=== PATIENT | female | born 1965 | race Caucasian/White ===

== ENCOUNTER 2022-11-19 01:48 | Outpatient (CLI) | payer MEDICAID ==
[2022-11-19 17:38] LABS: BASOPHILS % (AUTO) 1.3 %; EOSINOPHILS # (AUTO) 0.1 10^3/uL (0.0-0.7); EOSINOPHILS % (AUTO) 3.2 %; HCT - HEMATOCRIT 40.8 % (37.0-47.0); HGB - HEMOGLOBIN 13.6 g/dL (12.0-16.0); LYMPHOCYTES # (AUTO) 1.6 10^3/uL (1.5-3.5); LYMPHOCYTES % (AUTO) 49.2 %; MEAN CORPUSCULAR HEMOGLOBIN 33.5 pg (27.0-31.0); MEAN CORPUSCULAR HGB CONC 33.3 g/dL (32.0-36.0); MEAN CORPUSCULAR VOLUME 100.5 fL (81.0-99.0); MEAN PLATELET VOLUME 10.3 fL (7.9-10.8); MONOCYTES # (AUTO) 0.5 10^3/uL (0.0-1.0); MONOCYTES % (AUTO) 15.9 %; NEUTROPHILS # (AUTO) 0.9 10^3/uL (1.5-6.6); NEUTROPHILS % (AUTO) 29.8 %; PLT - PLATELET COUNT 115 10^3/uL (130-450); RED BLOOD COUNT 4.06 10^6/uL (4.20-5.40); RED CELL DISTRIBUTION WIDTH 14.8 % (12.0-15.0); WHITE BLOOD COUNT 3.2 x10^3/uL (4.8-10.8)
[2022-11-19 18:00] LABS: ALBUMIN 4.5 g/dL (3.2-5.5); ALBUMIN/GLOBULIN RATIO 1.2 (1.0-2.2); BILIRUBIN,TOTAL 0.7 mg/dL (0.2-1.0); CALCIUM 9.6 mg/dL (8.5-10.3); CREATININE 0.6 mg/dL (0.4-1.0); POTASSIUM 3.2 mmol/L (3.5-5.0); TOTAL PROTEIN 8.2 g/dL (6.7-8.2)
== END 2022-11-19 23:59 | disposition home or self-care (01) ==
LOC: LAB.N 01:48
PROVIDERS: ATTEND Physician Assistant
DX: R53.83 Other fatigue (principal)
CPT/HCPCS: 36415; 80050

== ENCOUNTER 2023-07-11 10:52 | Inpatient (IN) | payer MEDICAID ==
[2023-07-11] MEDS ORDERED: SODIUM CHLORIDE 0.9% 1,000 ML IV STA (11:26)
[2023-07-11] MEDS ORDERED: ONDANSETRON 4 MG/2 ML VIAL IVP STA (11:26)
--- NOTE | 2023-07-11 11:52 | XRAY Report ---
PROCEDURE: Chest 1 View X-Ray INDICATIONS: SOA TECHNIQUE: One view of the chest was acquired. COMPARISON: Chest x-ray, 06/04/2022. FINDINGS: Surgical changes and devices: None. Lungs and pleura: No pleural effusions or pneumothorax. Lungs are clear. Mediastinum: Mediastinal contours appear normal. Heart size is normal. Bones and chest wall: No suspicious bony lesions. Overlying soft tissues appear unremarkable. IMPRESSION: No acute cardiopulmonary process. Reviewed by: Napoleon Hough MD on 07/11/2023 11:51 AM PDT Approved by: Napoleon Hough MD on 07/11/2023 11:51 AM PDT Station ID: [id number]
[2023-07-11 12:28] LABS: BASOPHILS % (AUTO) 0.3 %; HCT - HEMATOCRIT 42.8 % (37.0-47.0); HGB - HEMOGLOBIN 13.6 g/dL (12.0-16.0); LYMPHOCYTES # (AUTO) 0.1 10^3/uL (1.5-3.5); LYMPHOCYTES % (AUTO) 2.4 %; MEAN CORPUSCULAR HEMOGLOBIN 33.3 pg (27.0-31.0); MEAN CORPUSCULAR HGB CONC 31.8 g/dL (32.0-36.0); MEAN CORPUSCULAR VOLUME 104.6 fL (81.0-99.0); MEAN PLATELET VOLUME 9.5 fL (7.9-10.8); MONOCYTES # (AUTO) 0.7 10^3/uL (0.0-1.0); MONOCYTES % (AUTO) 12.7 %; NEUTROPHILS # (AUTO) 4.8 10^3/uL (1.5-6.6); NEUTROPHILS % (AUTO) 83.6 %; PLT - PLATELET COUNT 79 10^3/uL (130-450); RED BLOOD COUNT 4.09 10^6/uL (4.20-5.40); RED CELL DISTRIBUTION WIDTH 14.8 % (12.0-15.0); WHITE BLOOD COUNT 5.7 x10^3/uL (4.8-10.8)
[2023-07-11 12:44] LABS: ALBUMIN 4.7 g/dL (3.2-5.5); ALBUMIN/GLOBULIN RATIO 1.6 (1.0-2.2); BILIRUBIN,TOTAL 1.7 mg/dL (0.2-1.0); CALCIUM 7.9 mg/dL (8.5-10.3); ETOH - ETHANOL 115.9 mg/dL; POTASSIUM 4.1 mmol/L (3.5-5.0); TOTAL PROTEIN 7.7 g/dL (6.7-8.2)
--- NOTE | 2023-07-11 12:45 | ED Physician Documentation ---
History of Present Illness - Stated complaint Stated Complaint: N/V,SOA,FATIGUE - Chief complaint Chief Complaint: Abd Pain - History obtained from History obtained from: Patient - Additonal information Additional information: Patient is a 57-year-old female presenting for evaluation of nausea and vomiting for the past 1 week. Patient reports a history of alcohol abuse and drinks a third of a bottle of vodka Daily. She has been unable to tolerate any p.o. intake for the past 1 week and states her last EtOH use was 2 days ago. She denies alcohol withdrawal seizures but states that she has had DTs in the past. Does not currently see a PCP. States that her emesis is primarily liquids denies any blood. No diarrhea. She says she feels short of air. No chest pain. No fevers. No dysuria. Review of Systems Constitutional: denies: Fever Cardiac: denies: Chest pain / pressure Respiratory: reports: Dyspnea GI: reports: Nausea, Vomiting. denies: Bloody / black stool : denies: Dysuria Neurologic: denies: Headache PD PAST MEDICAL HISTORY - Past Medical History Past Medical History: Yes HEENT: Chronic hearing loss Psych: Other Other Past Medical History: Deaf R ear, ETOH abuse - Past Surgical History Past Surgical History: No - Present Medications Home Medications: Ambulatory Orders Medication Instructions Recorded Confirmed No Known Home Medications 07/11/23 07/11/23 - Allergies Allergies/Adverse Reactions: Allergies Allergy/AdvReac Type Severity Reaction Status Date / Time No Known Drug Allergies Allergy Verified 06/04/22 01:35 - Social History Does the pt smoke?: Yes Smoking Status: Current every day smoker Does the pt drink ETOH?: Yes ETOH Use: Liquor Does the pt have substance abuse?: No PD ED PE NORMAL - General General: Alert and oriented X 3, No acute distress, Well developed/nourished - HEENT HEENT: Atraumatic - Neck Neck: Supple, no meningeal sign - Cardiac Cardiac: No murmur, Other (Tachycardic, regular) - Respiratory Respiratory: Clear bilaterally, Other (Mild tachypnea) - Abdomen Abdomen: Normal bowel sounds, Soft, Non tender, Non distended ( rhythm) - Derm Derm: Warm and dry - Extremities Extremities: No edema - Neuro Neuro: Normal speech Results - Vitals Vitals: Vital Signs - 24 hr 07/11/23 07/11/23 10:57 13:02 Temperature 36.4 C L Heart Rate 132 H 118 H Respiratory 20 16 Rate Blood Pressure 118/96 H 140/79 H O2 Saturation 97 97 Oxygen O2 Source Room air - EKG (time done) 1144 EKG releavant findings:: EKG personally interpreted by author of this note. Relevant findings are: Rate 115, sinus tachycardia, no STEMI, T wave inversions in lead V3 - Labs Labs: Laboratory Tests 07/11/23 07/11/23 07/11/23 12:23 12:23 12:23 WBC 5.7 RBC 4.09 L Hgb 13.6 Hct 42.8 MCV 104.6 H MCH 33.3 H MCHC 31.8 L RDW 14.8 Plt Count 79 L MPV 9.5 Neut # (Auto) 4.8 Lymph # (Auto) 0.1 L [place] # (Auto) 0.7 Eos # (Auto) 0.0 Baso # (Auto) 0.0 Absolute Nucleated RBC 0.00 Nucleated RBC % 0.0 Bld Gas Analysis Time Sample Site ABG pH ABG pCO2 ABG pO2 ABG HCO3 ABG Total CO2 ABG O2 Saturation ABG Base Excess Tae Test Room Air Sodium 139 Potassium 4.1 Chloride 97 L Carbon Dioxide 12 L* Anion Gap 30.0 H BUN 23 H Creatinine 1.0 Estimated GFR (MDRD) 57 L Glucose 147 H Calcium 7.9 L Total Bilirubin 1.7 H AST 131 H ALT 60 Alkaline Phosphatase 57 Total Protein 7.7 Albumin 4.7 Globulin 3.0 Albumin/Globulin Ratio 1.6 Lipase 144 H Ethyl Alcohol 115.9 Serum Ketones SMALL H 07/11/23 13:25 WBC RBC Hgb Hct MCV MCH MCHC RDW Plt Count MPV Neut # (Auto) Lymph # (Auto) [place] # (Auto) Eos # (Auto) Baso # (Auto) Absolute Nucleated RBC Nucleated RBC % Bld Gas Analysis Time 1325 Sample Site RIGHT RADIAL ABG pH 7.18 L* ABG pCO2 30 L ABG pO2 82 ABG HCO3 10.9 L ABG Total CO2 11.8 L* ABG O2 Saturation 94 ABG Base Excess -16.1 L Tae Test POSITIVE Room Air YES Sodium Potassium Chloride Carbon Dioxide Anion Gap BUN Creatinine Estimated GFR (MDRD) Glucose Calcium Total Bilirubin AST ALT Alkaline Phosphatase Total Protein Albumin Globulin Albumin/Globulin Ratio Lipase Ethyl Alcohol Serum Ketones PD Medical Decision Making - ED course Complexity details: reviewed results, re-evaluated patient, d/w patient, d/w family ED course: 1342 - Discussed with admitting hospitalist will admit the patient for further management. Patient is a 57-year-old female presenting for evaluation of nausea and vomiting and feeling short of air. She has a long history of alcohol abuse and last drink 2 days ago. She is noted to be tachycardic. EKG demonstrates a sinus rhythm. She does report feeling short of air. Her lung sounds are clear. Chest x-ray is negative for pneumonia. I feel PE is less likely given other symptoms and Alternate diagnosis. Her labs were obtained including a CBC and chemistries with noted low CO level. I am concerned for acidosis and obtained an ABG and serum ketones. ABG demonstrates a pH of 7.18 and she has small serum ketones. Suspect her symptoms are related to alcoholic ketoacidosis. Her abdominal exam is benign. She has continued nausea and vomiting despite Zofran and IV fluids. Ethanol level is 115. Patient may be having early withdrawal symptoms as well. Discussed the case with admitting hospitalist will admit to ICU for further management. Departure - Departure Disposition: 66 [facility] DC/Xfer Clinical Impression: Alcoholic ketoacidosis, Alcohol abuse, Nausea & vomiting Condition: Fair Discharge Date/Time: 07/11/23 14:45
[2023-07-11 13:35] LABS: ABG BASE EXCESS -16.1 mmol/L (-2.0-3.0); ABG HCO3 10.9 mmol/L (22.0-26.0); ABG OXYGEN SATURATION 94 % (94-98); ABG PCO2 30 mmHg (34-45); ABG PO2 82 mmHg (80-100); ALLEN TEST POSITIVE
[2023-07-11 13:36] LABS: ABG PH 7.18 (7.35-7.45)
[2023-07-11 13:37] LABS: ABG TCO2 11.8 MMOL/L (21.0-29.0)
[2023-07-11] MEDS ORDERED: METOCLOPRAMIDE 10 MG/2 ML VIAL IVP STA (13:43)
[2023-07-11] MEDS ORDERED: PROCHLORPERAZINE 10 MG/2 ML VIAL IVP PRN (13:58)
[2023-07-11] MEDS ORDERED: ONDANSETRON 4 MG/2 ML VIAL IVP PRN (13:58)
[2023-07-11] MEDS ORDERED: HYDROmorphone 1 MG/ML CARPUJECT IVP PRN (14:20)
--- NOTE | 2023-07-11 14:20 | HISTORY & PHYSICAL EXAMINATION ---
Chief Complaint - Chief Complaint Chief Complaint: N/V fot 1 week History of Present Illness - Admitted From Admitted From:: ED - History Obtained From History obtained from: ED provider - History of Present Illness HPI Comment/Other: This is a 57-year-old female with a history of alcohol abuse drinks a large bottle of vodka every 2 days. There is a history of DTs but no alcohol withdrawal seizures. The patient presented to the ED complaining of nausea vomiting for 1 week. She can keep nothing down, not even liquids. She presented with a heart rate of 130 in sinus tachycardia, syst blood pressure 118. Labs showed a bicarb of 12 and ABG showed pH of 7.18, PCO2 30. The patient reported she has had no alcohol for 2 days however her serum alcohol level is 115. She complained of shortness of breath and was tachypneic but chest x-ray showed no abnormal findings. Lipase level is 144. No lactic acid level was done. No CT imaging was done because the CT scanner is currently broken. The ED provider spoke to me about this patient. The patient will be admitted to the Hospitalist service to the ICU in critical condition and started on treatment for alcoholic ketoacidosis and alcohol withdrawal. There is no POLST on record. She is unable to give accurate answers, therefore by default she will be a full code. History - Past Medical History HEENT: reports: Chronic hearing loss Psych: reports: Other Other Past Medical History: Deaf R ear, ETOH abuse - Family & Social History Social History Notes: Nothing is available, she is somnolent after receiving sedatives and cannot answer Meds/Allgy - Home Medications Home Medications: Ambulatory Orders Medication Instructions Recorded Confirmed No Known Home Medications 07/11/23 07/11/23 - Allergies Allergies/Adverse Reactions: Allergies Allergy/AdvReac Type Severity Reaction Status Date / Time No Known Drug Allergies Allergy Verified 06/04/22 01:35 Review of Systems - Gastrointestinal Gastrointestinal: reports: Nausea, Vomiting - All Other Systems All Other Systems: reports: Other (No other details are available currently because the patient is asleep after sedatives and cannot give other information) Exam - Vital Signs Reviewed Vital Signs: Yes Vital Signs: Vital Signs x48h Temp Pulse Resp BP Pulse Ox 07/11/23 13:02 118 H 16 140/79 H 97 07/11/23 10:57 36.4 C L 132 H 20 118/96 H 97 - Physical Exam General Appearance: positive: Lethargic (Asleep and does not respond to voice or light touch (got Ativan iv)) Eyes Bilateral: positive: Normal inspection, No lid inflammation ENT: positive: Dry mucous membranes Neck: positive: Nml inspection, No JVD Respiratory: positive: No respiratory distress, Breath sounds nml Cardiovascular: positive: Regular rate & rhythm, No murmur, Tachycardia Abdomen: positive: Non-tender, Nml bowel sounds, No distention Skin: positive: Warm, Dry Extremities: positive: Non-tender, No pedal edema Neurologic/Psychiatric: positive: Other (Somnolent) Conclusion/Plan - Problem List (1) Alcoholic ketoacidosis Conclusion/Plan: This is related to marked dehydration from longstanding vomiting in addition to alcohol abuse Plan: Admit the patient to the ICU on telemetry. Begin IV crystalloid fluids aggressively, Banana bag planned Start a bicarb IV drip Follow her serum ketones every 3 hours. (2) Alcohol withdrawal Conclusion/Plan: Despite having some alcohol and serum blood tests, she is scoring 24 on CIWA score at presentation Plan: Start CIWA protocol with high-dose ICU doses of Ativan prn Give a banana bag for IV hydration Librium cannot be started because she will be n.p.o. (3) Alcohol abuse Conclusion/Plan: As per Hx. The details of duration and true amounts of what she drinks are not known. Plan: I will order a banana bag for IV hydration Follow her CMP and CBC daily Begin empiric IV twice daily Protonix (4) Pancreatitis Conclusion/Plan: He has an elevated lipase level. We have no imaging to know the status of her pancreas since our CT scanner is broken Plan: Order n.p.o. except ice chips for bowel rest Give IV antiemetics and IV narcotics for pain control Give IV fluids as above Give empiric protonix iv BID Obtain pancreas imaging by either CT when it is available later today or by ultrasound (when she has pain control) - Lab Results Fish Bones: 07/11/23 12:23 07/11/23 12:23 - Diagnostic Imaging Results Diagnostic Imaging Results: positive: Final report reviewed - Other Other Results/Comments: Attestation: The patient is expected to be hospitalized for greater than 2 midnights and is expected to be discharged or transferred to another facility within 96 hours: Yes.
[2023-07-11] MEDS: DEXTROSE 5%-0.9% NACL 1,000 ML IV SCH (14:57)
[2023-07-11] MEDS: LORazepam 2 MG/ML VIAL IVP PRN ×6 (14:58→22:53)
[2023-07-11] MEDS ORDERED: SODIUM BICARBONATE 150 MEQ in DEXTROSE 5% 1,000 ML IV SCH (15:00)
[2023-07-11] MEDS: SODIUM BICARBONATE 150 MEQ in DEXTROSE 5% 1,000 ML IV SCH (15:06)
[2023-07-11] MEDS: SODIUM CHLORIDE FLUSH 0.9% 10 ML SYRINGE IVP SCH (16:39)
[2023-07-11 17:31] LABS: BILIRUBIN,URINE NEGATIVE (NEGATIVE); GLUCOSE, URINE (UA) NEGATIVE (NEGATIVE); KETONES,URINE (UA) >=80 mg/dL (NEGATIVE); LEUKOCYTE ESTERASE, URINE NEGATIVE (NEGATIVE); NITRITE,URINE NEGATIVE (NEGATIVE); OCCULT BLOOD,URINE TRACE-INTA (NEGATIVE); PH,URINE 5.5 PH (5.0-7.5); PROTEIN,URINE 30 mg/dL (NEGATIVE); UROBILINOGEN,URINE 0.2 (NORMAL) E.U./dL (NORMAL)
[2023-07-11 17:49] LABS: BACTERIA,URINE Rare /HPF (None Seen); CASTS, URINE 6-10 Hyaline Casts /LPF; CLARITY,URINE HAZY (CLEAR); EPITHELIAL CELLS,UR RARE Transitional /HPF (<= Few); RBC,URINE 0-5 /HPF (0-5); SQUAMOUS EPITHELIAL CELL,UR NONE SEEN (<= Few); WBC,URINE 0-3 /HPF (0-5)
[2023-07-11] MEDS: PANTOPRAZOLE 40 MG VIAL IVP SCH (20:43)
[2023-07-11 20:59] LABS: VBG PH 7.44 (7.31-7.41)
[2023-07-11] MEDS ORDERED: CALCIUM GLUC 1,000MG/50ML-NACL 1,000 MG/50 ML BAG IV ONE (21:26)
[2023-07-11] MEDS: MAGNESIUM SULFATE 2 GRAM 2 GM/50 ML BAG IV SCH ×2 (22:05→23:11)
[2023-07-11] MEDS: POTASSIUM PHOSPHATE 15 MMOL in SODIUM CHLORIDE 0.9% 250 ML IV SCH (22:32)
[2023-07-12] MEDS ORDERED: SODIUM BICARBONATE 8.4% 50 MEQ/50 ML VIAL ONE (00:19)
[2023-07-12] MEDS ORDERED: DEXTROSE 5% 1,000 ML IV ONE (00:19)
[2023-07-12] MEDS ORDERED: INSULIN LISPRO 300 UNIT/3 ML PEN SUBQ SCH ×2 (00:50→00:51)
[2023-07-12] MEDS: INSULIN REGULAR HUMAN 300 UNIT/3 ML VIAL SUBQ SCH ×4 (01:45→18:18)
[2023-07-12] MEDS: SODIUM CHLORIDE FLUSH 0.9% 10 ML SYRINGE IVP SCH ×5 (01:53→21:23)
[2023-07-12 02:20] LABS: CALCIUM, IONIZED 1.06 mmol/L (1.15-1.33); VBG PH 7.514 (7.31-7.41)
[2023-07-12] MEDS: SODIUM BICARBONATE 150 MEQ in DEXTROSE 5% 1,000 ML IV SCH (02:24)
[2023-07-12] MEDS: POTASSIUM PHOSPHATE 15 MMOL in SODIUM CHLORIDE 0.9% 250 ML IV SCH ×3 (02:28→14:17)
[2023-07-12] MEDS ORDERED: CALCIUM GLUC 1,000MG/50ML-NACL 1,000 MG/50 ML BAG IV ONE ×4 (02:31→20:55)
[2023-07-12] MEDS: DEXTROSE 5%-0.9% NACL 1,000 ML IV SCH ×2 (02:45→10:44)
[2023-07-12] MEDS: LORazepam 2 MG/ML VIAL IVP PRN ×7 (04:13→22:52)
[2023-07-12 05:34] LABS: BASOPHILS % (AUTO) 0.3 %; EOSINOPHILS % (AUTO) 0.9 %; HCT - HEMATOCRIT 32.7 % (37.0-47.0); HGB - HEMOGLOBIN 11.4 g/dL (12.0-16.0); LYMPHOCYTES # (AUTO) 0.4 10^3/uL (1.5-3.5); LYMPHOCYTES % (AUTO) 11.4 %; MEAN CORPUSCULAR HGB CONC 34.9 g/dL (32.0-36.0); MEAN CORPUSCULAR VOLUME 97.6 fL (81.0-99.0); MEAN PLATELET VOLUME 10.3 fL (7.9-10.8); MONOCYTES # (AUTO) 0.6 10^3/uL (0.0-1.0); MONOCYTES % (AUTO) 18.1 %; NEUTROPHILS # (AUTO) 2.4 10^3/uL (1.5-6.6); NEUTROPHILS % (AUTO) 68.7 %; PLT - PLATELET COUNT 58 10^3/uL (130-450); RED BLOOD COUNT 3.35 10^6/uL (4.20-5.40); RED CELL DISTRIBUTION WIDTH 14.2 % (12.0-15.0); WHITE BLOOD COUNT 3.4 x10^3/uL (4.8-10.8)
[2023-07-12 05:43] LABS: CALCIUM, IONIZED 1.04 mmol/L (1.15-1.33); VBG PH 7.556 (7.31-7.41)
[2023-07-12 05:53] LABS: ALBUMIN 3.8 g/dL (3.2-5.5); ALBUMIN/GLOBULIN RATIO 2.1 (1.0-2.2); ALKALINE PHOSPHATASE 46 IU/L (42-121); ALT ALANINE AMINOTRANSFERASE 34 IU/L (10-60); AST ASPARTATE AMINOTRANSFERASE 73 IU/L (10-42); BILIRUBIN,TOTAL 1.1 mg/dL (0.2-1.0); BUN - BLOOD UREA NITROGEN 11 mg/dL (6-20); CALCIUM 8.8 mg/dL (8.5-10.3); CARBON DIOXIDE - CO2 32 mmol/L (21-32); CHLORIDE 99 mmol/L (101-111); CREATININE 0.5 mg/dL (0.6-1.3); GFR - MDRD 126 (>89); GLUCOSE 247 mg/dL (74-104); LIPASE 349 U/L (11-82); MAGNESIUM 2.4 mg/dL (1.7-2.3); PHOSPHORUS 1.2 mg/dL (2.5-5.0); POTASSIUM 3.1 mmol/L (3.5-4.5); SODIUM 139 mmol/L (135-145); TOTAL PROTEIN 5.6 g/dL (6.4-8.9)
[2023-07-12 06:05] LABS: KETONES, SERUM (ACETEST) SMALL (NEGATIVE)
[2023-07-12] MEDS: MULTIVITAMIN 10 ML, THIAMINE INJ 100 MG, FOLIC ACID INJ 1 MG in SODIUM CHLORIDE 0.9% 1,... IV SCH (09:17)
[2023-07-12] MEDS: PANTOPRAZOLE 40 MG VIAL IVP SCH ×2 (09:19→20:23)
[2023-07-12 09:51] LABS: CALCIUM, IONIZED 1.11 mmol/L (1.15-1.33); VBG PH 7.538 (7.31-7.41)
[2023-07-12 10:10] LABS: PHOSPHORUS < 1.0 mg/dL (2.5-5.0)
--- NOTE | 2023-07-12 10:45 | PHARMACY PROGRESS NOTE ---
- Best Possible Medication History Admit Date and Time: 07/11/23 7556 Processed by: Nursing As the person ultimately responsible for medication therapy, providers are able to order a medication from an existing home medication list in [facility] via the "Reconcile Routine" prior to Confirmation of that medication by program support clerk. Such practice is discouraged except when the physician, in their clinical judgment, deems that a medical need exists for a medication without regard to previous use.
[2023-07-12 10:51] LABS: ESTIMATED AVERAGE GLUCOSE 108 mg/dL (70-100); HEMOGLOBIN A1c% 5.4 % (4.27-6.07)
[2023-07-12] MEDS ORDERED: POTASSIUM CHLOR 10 MEQ/100 ML 10 MEQ/100 ML BAG IV SCH (11:00)
[2023-07-12] MEDS: POTASSIUM CHLOR 10 MEQ/100 ML 10 MEQ/100 ML BAG IV SCH ×4 (14:16→17:22)
--- NOTE | 2023-07-12 16:56 | PROVIDER PROGRESS NOTE ---
Subjective - Subjective Pt reports feeling: No change (She is minimally awake, slurring her speech when answering unintelligibly. She is reaching for things in front of her) Objective - Vital Signs/Intake & Output Reviewed Vital Signs: Yes Vital Signs: Vital Signs Temp Pulse Resp BP Pulse Ox O2 Flow Rate 07/12/23 16:05 36.7 C 99 22 138/85 H 95 07/12/23 15:00 98 23 141/96 H 98 2 07/12/23 13:00 92 24 133/88 H 95 2 Intake & Output: Intake & Output 07/09/23 07/10/23 07/11/23 07/12/23 23:59 23:59 23:59 23:59 Intake Total 1100 4367.446 Output Total 1025 1465 Balance 75 2902.446 - Objective General Appearance: positive: No acute distress, Other (Somnolent, slurred speech, possibly is hallucinating (reaching for things with her arms, in front of her) Eyes Bilateral: positive: No lid inflammation ENT: positive: Dry mucous membranes Neck: positive: Nml inspection Respiratory: positive: No respiratory distress, Breath sounds nml Cardiovascular: positive: Regular rate & rhythm, No murmur Abdomen: positive: Non-tender, No distention, Other (Diminished bowel sounds, soft abd) Skin: positive: Warm, Dry Extremities: positive: No pedal edema Neurologic/Psychiatric: positive: Other (Lethargic, slurred speech and unintelligible, reaching for things in front of her (possibly hallucinating)) - Lab Results Fish Bones: 07/12/23 05:08 07/12/23 09:17 Other Labs: Lab Results x24hrs 07/12/23 07/12/23 07/12/23 Range/Units 15:30 12:13 09:17 WBC (4.8-10.8) x10^3/uL RBC (4.20-5.40) 10^6/uL Hgb (12.0-16.0) g/dL Hct (37.0-47.0) % MCV (81.0-99.0) fL MCH (27.0-31.0) pg MCHC (32.0-36.0) g/dL RDW (12.0-15.0) % Plt Count (130-450) 10^3/uL MPV (7.9-10.8) fL Neut # (Auto) (1.5-6.6) 10^3/uL Lymph # (Auto) (1.5-3.5) 10^3/uL [place] # (Auto) (0.0-1.0) 10^3/uL Eos # (Auto) (0.0-0.7) 10^3/uL Baso # (Auto) (0.0-0.1) 10^3/uL Absolute Nucleated RBC x10^3/uL Nucleated RBC % /100WBC VBG pH 7.538 H (7.31-7.41) Ionized Calcium 1.11 L (1.15-1.33) mmol/L Sodium (135-145) mmol/L Potassium (3.5-5.0) mmol/L Chloride (101-111) mmol/L Carbon Dioxide (21-32) mmol/L Anion Gap (6-13) BUN (6-20) mg/dL Creatinine (0.6-1.3) mg/dL Estimated GFR (MDRD) (>89) Glucose (74-104) mg/dL POC Whole Bld Glucose 162 H (70 - 100) mg/dL Estimat Average Glucose (70-100) mg/dL Hemoglobin A1c % (4.27-6.07) % Calcium (8.5-10.3) mg/dL Phosphorus (2.5-5.0) mg/dL Magnesium (1.7-2.3) mg/dL Total Bilirubin (0.2-1.0) mg/dL AST (10-42) IU/L ALT (10-60) IU/L Alkaline Phosphatase (42-121) IU/L Total Protein (6.4-8.9) g/dL Albumin (3.2-5.5) g/dL Globulin (2.1-4.2) g/dL Albumin/Globulin Ratio (1.0-2.2) Lipase (11-82) U/L Urine Color Urine Clarity (CLEAR) Urine pH (5.0-7.5) PH Ur Specific [place] (1.002-1.030) Urine Protein (NEGATIVE) mg/dL Urine Glucose (UA) (NEGATIVE) mg/dL Urine Ketones (NEGATIVE) mg/dL Urine Occult Blood (NEGATIVE) Urine Nitrite (NEGATIVE) Urine Bilirubin (NEGATIVE) Urine Urobilinogen (NORMAL) E.U./dL Ur Leukocyte Esterase (NEGATIVE) Urine RBC (0-5) /HPF Urine WBC (0-5) /HPF Ur Epithelial Cells (<= Few) /HPF Ur Squamous Epith Cells (<= Few) Urine Bacteria (None Seen) /HPF Urine Casts /LPF Urine Culture Comments Nasal Screen MRSA (PCR) (NEGATIVE) Serum Ketones SMALL H (NEGATIVE) 07/12/23 07/12/23 07/12/23 Range/Units 09:17 05:26 05:08 WBC (4.8-10.8) x10^3/uL RBC (4.20-5.40) 10^6/uL Hgb (12.0-16.0) g/dL Hct (37.0-47.0) % MCV (81.0-99.0) fL MCH (27.0-31.0) pg MCHC (32.0-36.0) g/dL RDW (12.0-15.0) % Plt Count (130-450) 10^3/uL MPV (7.9-10.8) fL Neut # (Auto) (1.5-6.6) 10^3/uL Lymph # (Auto) (1.5-3.5) 10^3/uL [place] # (Auto) (0.0-1.0) 10^3/uL Eos # (Auto) (0.0-0.7) 10^3/uL Baso # (Auto) (0.0-0.1) 10^3/uL Absolute Nucleated RBC x10^3/uL Nucleated RBC % /100WBC VBG pH (7.31-7.41) Ionized Calcium (1.15-1.33) mmol/L Sodium (135-145) mmol/L Potassium 3.0 L (3.5-5.0) mmol/L Chloride (101-111) mmol/L Carbon Dioxide (21-32) mmol/L Anion Gap (6-13) BUN (6-20) mg/dL Creatinine (0.6-1.3) mg/dL Estimated GFR (MDRD) (>89) Glucose (74-104) mg/dL POC Whole Bld Glucose 228 H (70 - 100) mg/dL Estimat Average Glucose 108 H (70-100) mg/dL Hemoglobin A1c % 5.4 (4.27-6.07) % Calcium (8.5-10.3) mg/dL Phosphorus < 1.0 L* (2.5-5.0) mg/dL Magnesium (1.7-2.3) mg/dL Total Bilirubin (0.2-1.0) mg/dL AST (10-42) IU/L ALT (10-60) IU/L Alkaline Phosphatase (42-121) IU/L Total Protein (6.4-8.9) g/dL Albumin (3.2-5.5) g/dL Globulin (2.1-4.2) g/dL Albumin/Globulin Ratio (1.0-2.2) Lipase (11-82) U/L Urine Color Urine Clarity (CLEAR) Urine pH (5.0-7.5) PH Ur Specific [place] (1.002-1.030) Urine Protein (NEGATIVE) mg/dL Urine Glucose (UA) (NEGATIVE) mg/dL Urine Ketones (NEGATIVE) mg/dL Urine Occult Blood (NEGATIVE) Urine Nitrite (NEGATIVE) Urine Bilirubin (NEGATIVE) Urine Urobilinogen (NORMAL) E.U./dL Ur Leukocyte Esterase (NEGATIVE) Urine RBC (0-5) /HPF Urine WBC (0-5) /HPF Ur Epithelial Cells (<= Few) /HPF Ur Squamous Epith Cells (<= Few) Urine Bacteria (None Seen) /HPF Urine Casts /LPF Urine Culture Comments Nasal Screen MRSA (PCR) (NEGATIVE) Serum Ketones (NEGATIVE) 07/12/23 07/12/23 07/12/23 Range/Units 05:08 05:08 05:08 WBC 3.4 L (4.8-10.8) x10^3/uL RBC 3.35 L (4.20-5.40) 10^6/uL Hgb 11.4 L (12.0-16.0) g/dL Hct 32.7 L (37.0-47.0) % MCV 97.6 (81.0-99.0) fL MCH 34.0 H (27.0-31.0) pg MCHC 34.9 (32.0-36.0) g/dL RDW 14.2 (12.0-15.0) % Plt Count 58 L (130-450) 10^3/uL MPV 10.3 (7.9-10.8) fL Neut # (Auto) 2.4 (1.5-6.6) 10^3/uL Lymph # (Auto) 0.4 L (1.5-3.5) 10^3/uL [place] # (Auto) 0.6 (0.0-1.0) 10^3/uL Eos # (Auto) 0.0 (0.0-0.7) 10^3/uL Baso # (Auto) 0.0 (0.0-0.1) 10^3/uL Absolute Nucleated RBC 0.00 x10^3/uL Nucleated RBC % 0.0 /100WBC VBG pH 7.556 H (7.31-7.41) Ionized Calcium 1.04 L (1.15-1.33) mmol/L Sodium 139 (135-145) mmol/L Potassium 3.1 L (3.5-5.0) mmol/L Chloride 99 L (101-111) mmol/L Carbon Dioxide 32 (21-32) mmol/L Anion Gap 8.0 (6-13) BUN 11 (6-20) mg/dL Creatinine 0.5 L (0.6-1.3) mg/dL Estimated GFR (MDRD) 126 (>89) Glucose 247 H (74-104) mg/dL POC Whole Bld Glucose (70 - 100) mg/dL Estimat Average Glucose (70-100) mg/dL Hemoglobin A1c % (4.27-6.07) % Calcium 8.8 (8.5-10.3) mg/dL Phosphorus 1.2 L (2.5-5.0) mg/dL Magnesium 2.4 H (1.7-2.3) mg/dL Total Bilirubin 1.1 H (0.2-1.0) mg/dL AST 73 H (10-42) IU/L ALT 34 (10-60) IU/L Alkaline Phosphatase 46 (42-121) IU/L Total Protein 5.6 L (6.4-8.9) g/dL Albumin 3.8 (3.2-5.5) g/dL Globulin 1.8 L (2.1-4.2) g/dL Albumin/Globulin Ratio 2.1 (1.0-2.2) Lipase 349 H (11-82) U/L Urine Color Urine Clarity (CLEAR) Urine pH (5.0-7.5) PH Ur Specific [place] (1.002-1.030) Urine Protein (NEGATIVE) mg/dL Urine Glucose (UA) (NEGATIVE) mg/dL Urine Ketones (NEGATIVE) mg/dL Urine Occult Blood (NEGATIVE) Urine Nitrite (NEGATIVE) Urine Bilirubin (NEGATIVE) Urine Urobilinogen (NORMAL) E.U./dL Ur Leukocyte Esterase (NEGATIVE) Urine RBC (0-5) /HPF Urine WBC (0-5) /HPF Ur Epithelial Cells (<= Few) /HPF Ur Squamous Epith Cells (<= Few) Urine Bacteria (None Seen) /HPF Urine Casts /LPF Urine Culture Comments Nasal Screen MRSA (PCR) (NEGATIVE) Serum Ketones SMALL H (NEGATIVE) 07/12/23 07/12/23 07/12/23 Range/Units 02:08 02:08 02:08 WBC (4.8-10.8) x10^3/uL RBC (4.20-5.40) 10^6/uL Hgb (12.0-16.0) g/dL Hct (37.0-47.0) % MCV (81.0-99.0) fL MCH (27.0-31.0) pg MCHC (32.0-36.0) g/dL RDW (12.0-15.0) % Plt Count (130-450) 10^3/uL MPV (7.9-10.8) fL Neut # (Auto) (1.5-6.6) 10^3/uL Lymph # (Auto) (1.5-3.5) 10^3/uL [place] # (Auto) (0.0-1.0) 10^3/uL Eos # (Auto) (0.0-0.7) 10^3/uL Baso # (Auto) (0.0-0.1) 10^3/uL Absolute Nucleated RBC x10^3/uL Nucleated RBC % /100WBC VBG pH 7.514 H (7.31-7.41) Ionized Calcium 1.06 L (1.15-1.33) mmol/L Sodium (135-145) mmol/L Potassium (3.5-5.0) mmol/L Chloride (101-111) mmol/L Carbon Dioxide (21-32) mmol/L Anion Gap (6-13) BUN (6-20) mg/dL Creatinine (0.6-1.3) mg/dL Estimated GFR (MDRD) (>89) Glucose (74-104) mg/dL POC Whole Bld Glucose (70 - 100) mg/dL Estimat Average Glucose (70-100) mg/dL Hemoglobin A1c % (4.27-6.07) % Calcium (8.5-10.3) mg/dL Phosphorus (2.5-5.0) mg/dL Magnesium 2.6 H (1.7-2.3) mg/dL Total Bilirubin (0.2-1.0) mg/dL AST (10-42) IU/L ALT (10-60) IU/L Alkaline Phosphatase (42-121) IU/L Total Protein (6.4-8.9) g/dL Albumin (3.2-5.5) g/dL Globulin (2.1-4.2) g/dL Albumin/Globulin Ratio (1.0-2.2) Lipase (11-82) U/L Urine Color Urine Clarity (CLEAR) Urine pH (5.0-7.5) PH Ur Specific [place] (1.002-1.030) Urine Protein (NEGATIVE) mg/dL Urine Glucose (UA) (NEGATIVE) mg/dL Urine Ketones (NEGATIVE) mg/dL Urine Occult Blood (NEGATIVE) Urine Nitrite (NEGATIVE) Urine Bilirubin (NEGATIVE) Urine Urobilinogen (NORMAL) E.U./dL Ur Leukocyte Esterase (NEGATIVE) Urine RBC (0-5) /HPF Urine WBC (0-5) /HPF Ur Epithelial Cells (<= Few) /HPF Ur Squamous Epith Cells (<= Few) Urine Bacteria (None Seen) /HPF Urine Casts /LPF Urine Culture Comments Nasal Screen MRSA (PCR) (NEGATIVE) Serum Ketones SMALL H (NEGATIVE) 07/12/23 07/11/23 07/11/23 Range/Units 01:40 23:04 23:03 WBC (4.8-10.8) x10^3/uL RBC (4.20-5.40) 10^6/uL Hgb (12.0-16.0) g/dL Hct (37.0-47.0) % MCV (81.0-99.0) fL MCH (27.0-31.0) pg MCHC (32.0-36.0) g/dL RDW (12.0-15.0) % Plt Count (130-450) 10^3/uL MPV (7.9-10.8) fL Neut # (Auto) (1.5-6.6) 10^3/uL Lymph # (Auto) (1.5-3.5) 10^3/uL [place] # (Auto) (0.0-1.0) 10^3/uL Eos # (Auto) (0.0-0.7) 10^3/uL Baso # (Auto) (0.0-0.1) 10^3/uL Absolute Nucleated RBC x10^3/uL Nucleated RBC % /100WBC VBG pH (7.31-7.41) Ionized Calcium (1.15-1.33) mmol/L Sodium (135-145) mmol/L Potassium (3.5-5.0) mmol/L Chloride (101-111) mmol/L Carbon Dioxide (21-32) mmol/L Anion Gap (6-13) BUN (6-20) mg/dL Creatinine (0.6-1.3) mg/dL Estimated GFR (MDRD) (>89) Glucose (74-104) mg/dL POC Whole Bld Glucose 308 H 356 H (70 - 100) mg/dL Estimat Average Glucose (70-100) mg/dL Hemoglobin A1c % (4.27-6.07) % Calcium (8.5-10.3) mg/dL Phosphorus (2.5-5.0) mg/dL Magnesium (1.7-2.3) mg/dL Total Bilirubin (0.2-1.0) mg/dL AST (10-42) IU/L ALT (10-60) IU/L Alkaline Phosphatase (42-121) IU/L Total Protein (6.4-8.9) g/dL Albumin (3.2-5.5) g/dL Globulin (2.1-4.2) g/dL Albumin/Globulin Ratio (1.0-2.2) Lipase (11-82) U/L Urine Color Urine Clarity (CLEAR) Urine pH (5.0-7.5) PH Ur Specific [place] (1.002-1.030) Urine Protein (NEGATIVE) mg/dL Urine Glucose (UA) (NEGATIVE) mg/dL Urine Ketones (NEGATIVE) mg/dL Urine Occult Blood (NEGATIVE) Urine Nitrite (NEGATIVE) Urine Bilirubin (NEGATIVE) Urine Urobilinogen (NORMAL) E.U./dL Ur Leukocyte Esterase (NEGATIVE) Urine RBC (0-5) /HPF Urine WBC (0-5) /HPF Ur Epithelial Cells (<= Few) /HPF Ur Squamous Epith Cells (<= Few) Urine Bacteria (None Seen) /HPF Urine Casts /LPF Urine Culture Comments Nasal Screen MRSA (PCR) (NEGATIVE) Serum Ketones SMALL H (NEGATIVE) 07/11/23 07/11/23 07/11/23 Range/Units 21:00 20:40 20:40 WBC (4.8-10.8) x10^3/uL RBC (4.20-5.40) 10^6/uL Hgb (12.0-16.0) g/dL Hct (37.0-47.0) % MCV (81.0-99.0) fL MCH (27.0-31.0) pg MCHC (32.0-36.0) g/dL RDW (12.0-15.0) % Plt Count (130-450) 10^3/uL MPV (7.9-10.8) fL Neut # (Auto) (1.5-6.6) 10^3/uL Lymph # (Auto) (1.5-3.5) 10^3/uL [place] # (Auto) (0.0-1.0) 10^3/uL Eos # (Auto) (0.0-0.7) 10^3/uL Baso # (Auto) (0.0-0.1) 10^3/uL Absolute Nucleated RBC x10^3/uL Nucleated RBC % /100WBC VBG pH 7.440 H (7.31-7.41) Ionized Calcium 1.00 L (1.15-1.33) mmol/L Sodium (135-145) mmol/L Potassium 3.7 (3.5-5.0) mmol/L Chloride (101-111) mmol/L Carbon Dioxide (21-32) mmol/L Anion Gap (6-13) BUN (6-20) mg/dL Creatinine (0.6-1.3) mg/dL Estimated GFR (MDRD) (>89) Glucose (74-104) mg/dL POC Whole Bld Glucose (70 - 100) mg/dL Estimat Average Glucose (70-100) mg/dL Hemoglobin A1c % (4.27-6.07) % Calcium (8.5-10.3) mg/dL Phosphorus < 1.0 L* (2.5-5.0) mg/dL Magnesium (1.7-2.3) mg/dL Total Bilirubin (0.2-1.0) mg/dL AST (10-42) IU/L ALT (10-60) IU/L Alkaline Phosphatase (42-121) IU/L Total Protein (6.4-8.9) g/dL Albumin (3.2-5.5) g/dL Globulin (2.1-4.2) g/dL Albumin/Globulin Ratio (1.0-2.2) Lipase (11-82) U/L Urine Color Urine Clarity (CLEAR) Urine pH (5.0-7.5) PH Ur Specific [place] (1.002-1.030) Urine Protein (NEGATIVE) mg/dL Urine Glucose (UA) (NEGATIVE) mg/dL Urine Ketones (NEGATIVE) mg/dL Urine Occult Blood (NEGATIVE) Urine Nitrite (NEGATIVE) Urine Bilirubin (NEGATIVE) Urine Urobilinogen (NORMAL) E.U./dL Ur Leukocyte Esterase (NEGATIVE) Urine RBC (0-5) /HPF Urine WBC (0-5) /HPF Ur Epithelial Cells (<= Few) /HPF Ur Squamous Epith Cells (<= Few) Urine Bacteria (None Seen) /HPF Urine Casts /LPF Urine Culture Comments Nasal Screen MRSA (PCR) (NEGATIVE) Serum Ketones (NEGATIVE) 07/11/23 07/11/23 07/11/23 Range/Units 20:40 20:40 17:25 WBC (4.8-10.8) x10^3/uL RBC (4.20-5.40) 10^6/uL Hgb (12.0-16.0) g/dL Hct (37.0-47.0) % MCV (81.0-99.0) fL MCH (27.0-31.0) pg MCHC (32.0-36.0) g/dL RDW (12.0-15.0) % Plt Count (130-450) 10^3/uL MPV (7.9-10.8) fL Neut # (Auto) (1.5-6.6) 10^3/uL Lymph # (Auto) (1.5-3.5) 10^3/uL [place] # (Auto) (0.0-1.0) 10^3/uL Eos # (Auto) (0.0-0.7) 10^3/uL Baso # (Auto) (0.0-0.1) 10^3/uL Absolute Nucleated RBC x10^3/uL Nucleated RBC % /100WBC VBG pH (7.31-7.41) Ionized Calcium (1.15-1.33) mmol/L Sodium (135-145) mmol/L Potassium (3.5-5.0) mmol/L Chloride (101-111) mmol/L Carbon Dioxide (21-32) mmol/L Anion Gap (6-13) BUN (6-20) mg/dL Creatinine (0.6-1.3) mg/dL Estimated GFR (MDRD) (>89) Glucose (74-104) mg/dL POC Whole Bld Glucose (70 - 100) mg/dL Estimat Average Glucose (70-100) mg/dL Hemoglobin A1c % (4.27-6.07) % Calcium (8.5-10.3) mg/dL Phosphorus (2.5-5.0) mg/dL Magnesium 1.2 L (1.7-2.3) mg/dL Total Bilirubin (0.2-1.0) mg/dL AST (10-42) IU/L ALT (10-60) IU/L Alkaline Phosphatase (42-121) IU/L Total Protein (6.4-8.9) g/dL Albumin (3.2-5.5) g/dL Globulin (2.1-4.2) g/dL Albumin/Globulin Ratio (1.0-2.2) Lipase (11-82) U/L Urine Color Urine Clarity (CLEAR) Urine pH (5.0-7.5) PH Ur Specific [place] (1.002-1.030) Urine Protein (NEGATIVE) mg/dL Urine Glucose (UA) (NEGATIVE) mg/dL Urine Ketones (NEGATIVE) mg/dL Urine Occult Blood (NEGATIVE) Urine Nitrite (NEGATIVE) Urine Bilirubin (NEGATIVE) Urine Urobilinogen (NORMAL) E.U./dL Ur Leukocyte Esterase (NEGATIVE) Urine RBC (0-5) /HPF Urine WBC (0-5) /HPF Ur Epithelial Cells (<= Few) /HPF Ur Squamous Epith Cells (<= Few) Urine Bacteria (None Seen) /HPF Urine Casts /LPF Urine Culture Comments Nasal Screen MRSA (PCR) (NEGATIVE) Serum Ketones SMALL H SMALL H (NEGATIVE) 07/11/23 07/11/23 07/11/23 Range/Units 17:06 14:45 14:07 WBC (4.8-10.8) x10^3/uL RBC (4.20-5.40) 10^6/uL Hgb (12.0-16.0) g/dL Hct (37.0-47.0) % MCV (81.0-99.0) fL MCH (27.0-31.0) pg MCHC (32.0-36.0) g/dL RDW (12.0-15.0) % Plt Count (130-450) 10^3/uL MPV (7.9-10.8) fL Neut # (Auto) (1.5-6.6) 10^3/uL Lymph # (Auto) (1.5-3.5) 10^3/uL [place] # (Auto) (0.0-1.0) 10^3/uL Eos # (Auto) (0.0-0.7) 10^3/uL Baso # (Auto) (0.0-0.1) 10^3/uL Absolute Nucleated RBC x10^3/uL Nucleated RBC % /100WBC VBG pH (7.31-7.41) Ionized Calcium (1.15-1.33) mmol/L Sodium (135-145) mmol/L Potassium (3.5-5.0) mmol/L Chloride (101-111) mmol/L Carbon Dioxide (21-32) mmol/L Anion Gap (6-13) BUN (6-20) mg/dL Creatinine (0.6-1.3) mg/dL Estimated GFR (MDRD) (>89) Glucose (74-104) mg/dL POC Whole Bld Glucose 292 H (70 - 100) mg/dL Estimat Average Glucose (70-100) mg/dL Hemoglobin A1c % (4.27-6.07) % Calcium (8.5-10.3) mg/dL Phosphorus (2.5-5.0) mg/dL Magnesium (1.7-2.3) mg/dL Total Bilirubin (0.2-1.0) mg/dL AST (10-42) IU/L ALT (10-60) IU/L Alkaline Phosphatase (42-121) IU/L Total Protein (6.4-8.9) g/dL Albumin (3.2-5.5) g/dL Globulin (2.1-4.2) g/dL Albumin/Globulin Ratio (1.0-2.2) Lipase (11-82) U/L Urine Color YELLOW Urine Clarity HAZY (CLEAR) Urine pH 5.5 (5.0-7.5) PH Ur Specific [place] >=1.030 H (1.002-1.030) Urine Protein 30 H (NEGATIVE) mg/dL Urine Glucose (UA) NEGATIVE (NEGATIVE) mg/dL Urine Ketones >=80 H (NEGATIVE) mg/dL Urine Occult Blood TRACE-INTA (NEGATIVE) Urine Nitrite NEGATIVE (NEGATIVE) Urine Bilirubin NEGATIVE (NEGATIVE) Urine Urobilinogen 0.2 (NORMAL) (NORMAL) E.U./dL Ur Leukocyte Esterase NEGATIVE (NEGATIVE) Urine RBC 0-5 (0-5) /HPF Urine WBC 0-3 (0-5) /HPF Ur Epithelial Cells RARE Transitional (<= Few) /HPF Ur Squamous Epith Cells NONE SEEN (<= Few) Urine Bacteria Rare (None Seen) /HPF Urine Casts 6-10 Hyaline Casts /LPF Urine Culture Comments NOT INDICATED Nasal Screen MRSA (PCR) NEGATIVE (NEGATIVE) Serum Ketones (NEGATIVE) Assessment/Plan - Problem List (1) Alcoholic ketoacidosis Impression: (1) Alcoholic ketoacidosis Conclusion/Plan: This is related to marked dehydration from longstanding vomiting in addition to alcohol abuse. She has been on IV Banana Bag and she got a bicarb IV drip at admission to ICU. Today her serum ketones are still present (small), but the serum bicarb has improved (from 12 to 32). All labs were reviewed. Plan: Remain in the ICU on telemetry. Cont IV crystalloid fluids with a Banana bag Follow her serum ketones every 3 hours until neg. (2) Alcohol withdrawal Conclusion/Plan: Despite having some alcohol and serum blood tests, she was scoring 24 on CIWA score at presentation. Today she is scoring 12. She has awaoken but has slurred unintelligable speech Plan: Cont CIWA protocol with high-dose ICU doses of Ativan prn Cont a banana bag for IV hydration Librium cannot be started because she horn still n.p.o. (3) Pancreatitis Conclusion/Plan: Lipase at adm was 144 and has risen to 349 today. There was no imaging done when in ER, to know the status of her pancreas, since our CT scanner was broken yesterday. Plan: Obtain pancreas imaging by CT today (since the CT scanner is working today, was broken yesterday) Cont n.p.o. except ice chips for bowel rest Give IV antiemetics and IV narcotics as needed for pain control Give IV fluids as above Cont empiric protonix iv BID Follow lipase level daily (4) Diarrhea Conclusion/Plan: Today the patient has had 4 loose stools that are very malodorous, suspicious for C. difficile. Plan: Will order C. difficile toxin Isolation precautions and p.o. Vanco if (+), otherwise will order prn imodium (5) Alcohol abuse Conclusion/Plan: As per Hx. The details of duration and true amounts of what she drinks are not known. Yesterday she mentioned that she drinks vodka, today she said she drinks wine. Plan: Continue a banana bag for IV hydration, since she is still NPO Follow her CMP and CBC daily Cont empiric IV twice daily Protonix
[2023-07-12] MEDS: NICOTINE 14 MG PATCH TOP SCH (17:29)
--- NOTE | 2023-07-12 18:20 | CT Report ---
PROCEDURE: ABDOMEN/PELVIS WO INDICATIONS: Pancreatitis, eval for pathology TECHNIQUE: A CT scan of the abdomen and pelvis was performed without the use of intravenous contrast. Images we re recorded and evaluated at appropriate window settings. Reformats: coronal and sagittal. For radiat ion dose reduction, the following was used: automated exposure control, adjustment of mA and/or kV ac cording to patient size. COMPARISON: None. FINDINGS: Image quality: Excellent. Lung bases and heart: There is a small to moderate hiatal hernia. Liver: No solid mass. Diffuse fatty liver infiltration can be seen. Mild focal fatty sparing can be s een adjacent to the gallbladder. Gallbladder and biliary tree: Within normal limits. Biliary dilatation is seen. Spleen: No splenomegaly. Pancreas: In this patient with this given history, scrutiny is given to the pancreas. Only minimal in flammatory change can be seen surrounding the pancreas. No abnormal pancreatic enhancement can be see n. The pancreatic duct is not dilated. No pancreatic masses are identified. Adrenals: No adrenal nodule. Kidneys and ureters: No hydronephrosis. No renal cystic lesion which requires follow up. No solid mas s. Bowel and peritoneum: No bowel distension. No pathologic free fluid. There is a trace amount of layer ing free fluid within the pelvis. Appendix Lymph nodes: No central or retroperitoneal adenopathy. Vessels: No infrarenal aortic aneurysm. PELVIS Reproductive organs: The uterus demonstrates an unremarkable appearance for age. No adnexal masses ar e seen. Bladder: A Mayers catheter seen, which decompresses the bladder. Pelvic lymph nodes: No pelvic adenopathy by size criteria. Bones: No aggressive osseous abnormality. Other: No significant ventral or inguinal hernia. IMPRESSION: Only minimal inflammatory change can be seen surrounding the pancreas. No masses or panc reatic ductal dilatation can be seen. No biliary dilatation. A trace amount of layering free fluid can be seen within the pelvis. Additional findings: Small to moderate hiatal hernia Fatty liver infiltration Mayers catheter Reviewed by: Oleg Pham MD on 07/12/2023 5:19 PM AKDT Approved by: Oleg Pham MD on 07/12/2023 5:19 PM AKDT Station ID: [id number]
[2023-07-12 20:37] LABS: CALCIUM, IONIZED 1.05 mmol/L (1.15-1.33); VBG PH 7.528 (7.31-7.41)
[2023-07-12 20:48] LABS: MAGNESIUM 1.6 mg/dL (1.7-2.3); PHOSPHORUS 1.5 mg/dL (2.5-5.0); POTASSIUM 3.1 mmol/L (3.5-4.5)
[2023-07-12] MEDS ORDERED: POTASSIUM PHOSPHATE 21 MMOL in SODIUM CHLORIDE 0.9% 250 ML IV ONE (20:55)
[2023-07-12] MEDS ORDERED: MAGNESIUM SULFATE 2 GRAM 2 GM/50 ML BAG IV ONE (20:55)
[2023-07-12] MEDS: SODIUM CHLORIDE FLUSH 0.9% 10 ML SYRINGE IVP PRN ×2 (21:55→22:52)
[2023-07-13] MEDS: DEXTROSE 5%-0.9% NACL 1,000 ML IV SCH ×3 (00:03→12:25)
[2023-07-13] MEDS: INSULIN REGULAR HUMAN 300 UNIT/3 ML VIAL SUBQ SCH ×4 (00:04→18:09)
[2023-07-13] MEDS: LORazepam 2 MG/ML VIAL IVP PRN ×4 (05:42→20:50)
[2023-07-13] MEDS: SODIUM CHLORIDE FLUSH 0.9% 10 ML SYRINGE IVP PRN (05:42)
[2023-07-13 05:51] LABS: BASOPHILS % (AUTO) 0.5 %; EOSINOPHILS # (AUTO) 0.1 10^3/uL (0.0-0.7); EOSINOPHILS % (AUTO) 2.8 %; HCT - HEMATOCRIT 34.6 % (37.0-47.0); HGB - HEMOGLOBIN 11.8 g/dL (12.0-16.0); LYMPHOCYTES # (AUTO) 0.8 10^3/uL (1.5-3.5); LYMPHOCYTES % (AUTO) 20.4 %; MEAN CORPUSCULAR HEMOGLOBIN 33.8 pg (27.0-31.0); MEAN CORPUSCULAR HGB CONC 34.1 g/dL (32.0-36.0); MEAN CORPUSCULAR VOLUME 99.1 fL (81.0-99.0); MEAN PLATELET VOLUME 10.7 fL (7.9-10.8); MONOCYTES # (AUTO) 0.3 10^3/uL (0.0-1.0); MONOCYTES % (AUTO) 7.7 %; NEUTROPHILS # (AUTO) 2.6 10^3/uL (1.5-6.6); NEUTROPHILS % (AUTO) 67.8 %; PLT - PLATELET COUNT 68 10^3/uL (130-450); RED BLOOD COUNT 3.49 10^6/uL (4.20-5.40); RED CELL DISTRIBUTION WIDTH 14.3 % (12.0-15.0); WHITE BLOOD COUNT 3.9 x10^3/uL (4.8-10.8)
[2023-07-13 06:03] LABS: KETONES, SERUM (ACETEST) SMALL (NEGATIVE)
[2023-07-13 06:06] LABS: ALBUMIN 3.6 g/dL (3.2-5.5); LIPASE 514 U/L (11-82); MAGNESIUM 1.7 mg/dL (1.7-2.3); PHOSPHORUS 2.6 mg/dL (2.5-5.0)
[2023-07-13 06:30] LABS: VBG PH 7.566 (7.31-7.41)
[2023-07-13 06:31] LABS: CALCIUM, IONIZED 1.03 mmol/L (1.15-1.33)
[2023-07-13 06:51] LABS: ALBUMIN/GLOBULIN RATIO 1.4 (1.0-2.2); ALKALINE PHOSPHATASE 44 IU/L (42-121); ALT ALANINE AMINOTRANSFERASE 26 IU/L (10-60); BILIRUBIN,TOTAL 0.9 mg/dL (0.2-1.0); BUN - BLOOD UREA NITROGEN 4 mg/dL (6-20); CALCIUM 8.8 mg/dL (8.5-10.3); CARBON DIOXIDE - CO2 32 mmol/L (21-32); CHLORIDE 102 mmol/L (101-111); CREATININE 0.3 mg/dL (0.6-1.3); GFR - MDRD 228 (>89); GLUCOSE 146 mg/dL (74-104); POTASSIUM 2.8 mmol/L (3.5-4.5); SODIUM 141 mmol/L (135-145); TOTAL PROTEIN 6.1 g/dL (6.4-8.9)
[2023-07-13 07:02] LABS: AST ASPARTATE AMINOTRANSFERASE 54 IU/L (10-42)
[2023-07-13] MEDS ORDERED: CALCIUM GLUC 1,000MG/50ML-NACL 1,000 MG/50 ML BAG IV ONE (07:35)
--- NOTE | 2023-07-13 07:39 | PROVIDER PROGRESS NOTE ---
Subjective - Subjective Pt reports feeling: Improved (More awake, more talkative and can understand her speech) Objective - Vital Signs/Intake & Output Reviewed Vital Signs: Yes Vital Signs: Vital Signs Pulse Resp BP Pulse Ox O2 Flow Rate 07/13/23 07:00 89 20 121/84 H 97 2 07/13/23 05:00 87 20 142/81 H 96 2 Intake & Output: Intake & Output 07/10/23 07/11/23 07/12/23 07/13/23 23:59 23:59 23:59 23:59 Intake Total 1100 5926.979 1257 Output Total 1025 3270 1165 Balance 75 2656.979 92 - Objective General Appearance: positive: No acute distress, Other (Disheveled and appears malnurished) Eyes Bilateral: positive: Normal inspection ENT: positive: No signs of dehydration Neck: positive: Nml inspection, No JVD Respiratory: positive: No respiratory distress Cardiovascular: positive: Regular rate & rhythm Abdomen: positive: No distention Skin: positive: Warm, Dry Extremities: positive: No pedal edema Neurologic/Psychiatric: positive: Oriented x3, Other (speaking, knows person and place, has a resting tremor of her head and over her hands. Is forgetting that she is not to be OOB alone, tries to stand out of chair) - Lab Results Fish Bones: 07/13/23 05:33 07/13/23 14:00 Other Labs: Lab Results x24hrs 07/13/23 07/13/23 07/13/23 Range/Units 05:33 05:33 05:33 WBC 3.9 L (4.8-10.8) x10^3/uL RBC 3.49 L (4.20-5.40) 10^6/uL Hgb 11.8 L (12.0-16.0) g/dL Hct 34.6 L (37.0-47.0) % MCV 99.1 H (81.0-99.0) fL MCH 33.8 H (27.0-31.0) pg MCHC 34.1 (32.0-36.0) g/dL RDW 14.3 (12.0-15.0) % Plt Count 68 L (130-450) 10^3/uL MPV 10.7 (7.9-10.8) fL Neut # (Auto) 2.6 (1.5-6.6) 10^3/uL Lymph # (Auto) 0.8 L (1.5-3.5) 10^3/uL [place] # (Auto) 0.3 (0.0-1.0) 10^3/uL Eos # (Auto) 0.1 (0.0-0.7) 10^3/uL Baso # (Auto) 0.0 (0.0-0.1) 10^3/uL Absolute Nucleated RBC 0.00 x10^3/uL Nucleated RBC % 0.0 /100WBC VBG pH 7.566 H (7.31-7.41) Ionized Calcium 1.03 L (1.15-1.33) mmol/L Sodium (135-145) mmol/L Potassium (3.5-4.5) mmol/L Chloride (101-111) mmol/L Carbon Dioxide (21-32) mmol/L Anion Gap (6-13) BUN (6-20) mg/dL Creatinine (0.6-1.3) mg/dL Estimated GFR (MDRD) (>89) Glucose (74-104) mg/dL POC Whole Bld Glucose 149 H (70 - 100) mg/dL Estimat Average Glucose (70-100) mg/dL Hemoglobin A1c % (4.27-6.07) % Calcium (8.5-10.3) mg/dL Phosphorus (2.5-5.0) mg/dL Magnesium (1.7-2.3) mg/dL Total Bilirubin (0.2-1.0) mg/dL AST (10-42) IU/L ALT (10-60) IU/L Alkaline Phosphatase (42-121) IU/L Total Protein (6.4-8.9) g/dL Albumin (3.2-5.5) g/dL Globulin (2.1-4.2) g/dL Albumin/Globulin Ratio (1.0-2.2) Lipase (11-82) U/L Stl C. diff Tox B Gene (NEGATIVE) Serum Ketones (NEGATIVE) 07/13/23 07/13/23 07/12/23 Range/Units 05:33 00:38 23:48 WBC (4.8-10.8) x10^3/uL RBC (4.20-5.40) 10^6/uL Hgb (12.0-16.0) g/dL Hct (37.0-47.0) % MCV (81.0-99.0) fL MCH (27.0-31.0) pg MCHC (32.0-36.0) g/dL RDW (12.0-15.0) % Plt Count (130-450) 10^3/uL MPV (7.9-10.8) fL Neut # (Auto) (1.5-6.6) 10^3/uL Lymph # (Auto) (1.5-3.5) 10^3/uL [place] # (Auto) (0.0-1.0) 10^3/uL Eos # (Auto) (0.0-0.7) 10^3/uL Baso # (Auto) (0.0-0.1) 10^3/uL Absolute Nucleated RBC x10^3/uL Nucleated RBC % /100WBC VBG pH (7.31-7.41) Ionized Calcium (1.15-1.33) mmol/L Sodium 141 (135-145) mmol/L Potassium 2.8 L (3.5-4.5) mmol/L Chloride 102 (101-111) mmol/L Carbon Dioxide 32 (21-32) mmol/L Anion Gap 7.0 (6-13) BUN 4 L (6-20) mg/dL Creatinine 0.3 L (0.6-1.3) mg/dL Estimated GFR (MDRD) 228 (>89) Glucose 146 H (74-104) mg/dL POC Whole Bld Glucose 107 H (70 - 100) mg/dL Estimat Average Glucose (70-100) mg/dL Hemoglobin A1c % (4.27-6.07) % Calcium 8.8 (8.5-10.3) mg/dL Phosphorus 2.6 (2.5-5.0) mg/dL Magnesium 1.7 (1.7-2.3) mg/dL Total Bilirubin 0.9 (0.2-1.0) mg/dL AST 54 H (10-42) IU/L ALT 26 (10-60) IU/L Alkaline Phosphatase 44 (42-121) IU/L Total Protein 6.1 L (6.4-8.9) g/dL Albumin 3.6 (3.2-5.5) g/dL Globulin 2.5 (2.1-4.2) g/dL Albumin/Globulin Ratio 1.4 (1.0-2.2) Lipase 514 H (11-82) U/L Stl C. diff Tox B Gene (NEGATIVE) Serum Ketones SMALL H SMALL H (NEGATIVE) 07/12/23 07/12/23 07/12/23 Range/Units 20:25 20:25 20:25 WBC (4.8-10.8) x10^3/uL RBC (4.20-5.40) 10^6/uL Hgb (12.0-16.0) g/dL Hct (37.0-47.0) % MCV (81.0-99.0) fL MCH (27.0-31.0) pg MCHC (32.0-36.0) g/dL RDW (12.0-15.0) % Plt Count (130-450) 10^3/uL MPV (7.9-10.8) fL Neut # (Auto) (1.5-6.6) 10^3/uL Lymph # (Auto) (1.5-3.5) 10^3/uL [place] # (Auto) (0.0-1.0) 10^3/uL Eos # (Auto) (0.0-0.7) 10^3/uL Baso # (Auto) (0.0-0.1) 10^3/uL Absolute Nucleated RBC x10^3/uL Nucleated RBC % /100WBC VBG pH 7.528 H (7.31-7.41) Ionized Calcium 1.05 L (1.15-1.33) mmol/L Sodium (135-145) mmol/L Potassium 3.1 L (3.5-4.5) mmol/L Chloride (101-111) mmol/L Carbon Dioxide (21-32) mmol/L Anion Gap (6-13) BUN (6-20) mg/dL Creatinine (0.6-1.3) mg/dL Estimated GFR (MDRD) (>89) Glucose (74-104) mg/dL POC Whole Bld Glucose (70 - 100) mg/dL Estimat Average Glucose (70-100) mg/dL Hemoglobin A1c % (4.27-6.07) % Calcium (8.5-10.3) mg/dL Phosphorus 1.5 L (2.5-5.0) mg/dL Magnesium 1.6 L (1.7-2.3) mg/dL Total Bilirubin (0.2-1.0) mg/dL AST (10-42) IU/L ALT (10-60) IU/L Alkaline Phosphatase (42-121) IU/L Total Protein (6.4-8.9) g/dL Albumin (3.2-5.5) g/dL Globulin (2.1-4.2) g/dL Albumin/Globulin Ratio (1.0-2.2) Lipase (11-82) U/L Stl C. diff Tox B Gene (NEGATIVE) Serum Ketones NEGATIVE (NEGATIVE) 07/12/23 07/12/23 07/12/23 Range/Units 18:12 16:30 15:30 WBC (4.8-10.8) x10^3/uL RBC (4.20-5.40) 10^6/uL Hgb (12.0-16.0) g/dL Hct (37.0-47.0) % MCV (81.0-99.0) fL MCH (27.0-31.0) pg MCHC (32.0-36.0) g/dL RDW (12.0-15.0) % Plt Count (130-450) 10^3/uL MPV (7.9-10.8) fL Neut # (Auto) (1.5-6.6) 10^3/uL Lymph # (Auto) (1.5-3.5) 10^3/uL [place] # (Auto) (0.0-1.0) 10^3/uL Eos # (Auto) (0.0-0.7) 10^3/uL Baso # (Auto) (0.0-0.1) 10^3/uL Absolute Nucleated RBC x10^3/uL Nucleated RBC % /100WBC VBG pH (7.31-7.41) Ionized Calcium (1.15-1.33) mmol/L Sodium (135-145) mmol/L Potassium (3.5-4.5) mmol/L Chloride (101-111) mmol/L Carbon Dioxide (21-32) mmol/L Anion Gap (6-13) BUN (6-20) mg/dL Creatinine (0.6-1.3) mg/dL Estimated GFR (MDRD) (>89) Glucose (74-104) mg/dL POC Whole Bld Glucose 163 H (70 - 100) mg/dL Estimat Average Glucose (70-100) mg/dL Hemoglobin A1c % (4.27-6.07) % Calcium (8.5-10.3) mg/dL Phosphorus (2.5-5.0) mg/dL Magnesium (1.7-2.3) mg/dL Total Bilirubin (0.2-1.0) mg/dL AST (10-42) IU/L ALT (10-60) IU/L Alkaline Phosphatase (42-121) IU/L Total Protein (6.4-8.9) g/dL Albumin (3.2-5.5) g/dL Globulin (2.1-4.2) g/dL Albumin/Globulin Ratio (1.0-2.2) Lipase (11-82) U/L Stl C. diff Tox B Gene POSITIVE A* (NEGATIVE) Serum Ketones SMALL H (NEGATIVE) 07/12/23 07/12/23 07/12/23 Range/Units 12:13 09:17 09:17 WBC (4.8-10.8) x10^3/uL RBC (4.20-5.40) 10^6/uL Hgb (12.0-16.0) g/dL Hct (37.0-47.0) % MCV (81.0-99.0) fL MCH (27.0-31.0) pg MCHC (32.0-36.0) g/dL RDW (12.0-15.0) % Plt Count (130-450) 10^3/uL MPV (7.9-10.8) fL Neut # (Auto) (1.5-6.6) 10^3/uL Lymph # (Auto) (1.5-3.5) 10^3/uL [place] # (Auto) (0.0-1.0) 10^3/uL Eos # (Auto) (0.0-0.7) 10^3/uL Baso # (Auto) (0.0-0.1) 10^3/uL Absolute Nucleated RBC x10^3/uL Nucleated RBC % /100WBC VBG pH 7.538 H (7.31-7.41) Ionized Calcium 1.11 L (1.15-1.33) mmol/L Sodium (135-145) mmol/L Potassium 3.0 L (3.5-4.5) mmol/L Chloride (101-111) mmol/L Carbon Dioxide (21-32) mmol/L Anion Gap (6-13) BUN (6-20) mg/dL Creatinine (0.6-1.3) mg/dL Estimated GFR (MDRD) (>89) Glucose (74-104) mg/dL POC Whole Bld Glucose 162 H (70 - 100) mg/dL Estimat Average Glucose (70-100) mg/dL Hemoglobin A1c % (4.27-6.07) % Calcium (8.5-10.3) mg/dL Phosphorus < 1.0 L* (2.5-5.0) mg/dL Magnesium (1.7-2.3) mg/dL Total Bilirubin (0.2-1.0) mg/dL AST (10-42) IU/L ALT (10-60) IU/L Alkaline Phosphatase (42-121) IU/L Total Protein (6.4-8.9) g/dL Albumin (3.2-5.5) g/dL Globulin (2.1-4.2) g/dL Albumin/Globulin Ratio (1.0-2.2) Lipase (11-82) U/L Stl C. diff Tox B Gene (NEGATIVE) Serum Ketones (NEGATIVE) 07/12/23 07/12/23 Range/Units 05:26 05:08 WBC (4.8-10.8) x10^3/uL RBC (4.20-5.40) 10^6/uL Hgb (12.0-16.0) g/dL Hct (37.0-47.0) % MCV (81.0-99.0) fL MCH (27.0-31.0) pg MCHC (32.0-36.0) g/dL RDW (12.0-15.0) % Plt Count (130-450) 10^3/uL MPV (7.9-10.8) fL Neut # (Auto) (1.5-6.6) 10^3/uL Lymph # (Auto) (1.5-3.5) 10^3/uL [place] # (Auto) (0.0-1.0) 10^3/uL Eos # (Auto) (0.0-0.7) 10^3/uL Baso # (Auto) (0.0-0.1) 10^3/uL Absolute Nucleated RBC x10^3/uL Nucleated RBC % /100WBC VBG pH (7.31-7.41) Ionized Calcium (1.15-1.33) mmol/L Sodium (135-145) mmol/L Potassium (3.5-4.5) mmol/L Chloride (101-111) mmol/L Carbon Dioxide (21-32) mmol/L Anion Gap (6-13) BUN (6-20) mg/dL Creatinine (0.6-1.3) mg/dL Estimated GFR (MDRD) (>89) Glucose (74-104) mg/dL POC Whole Bld Glucose 228 H (70 - 100) mg/dL Estimat Average Glucose 108 H (70-100) mg/dL Hemoglobin A1c % 5.4 (4.27-6.07) % Calcium (8.5-10.3) mg/dL Phosphorus (2.5-5.0) mg/dL Magnesium (1.7-2.3) mg/dL Total Bilirubin (0.2-1.0) mg/dL AST (10-42) IU/L ALT (10-60) IU/L Alkaline Phosphatase (42-121) IU/L Total Protein (6.4-8.9) g/dL Albumin (3.2-5.5) g/dL Globulin (2.1-4.2) g/dL Albumin/Globulin Ratio (1.0-2.2) Lipase (11-82) U/L Stl C. diff Tox B Gene (NEGATIVE) Serum Ketones (NEGATIVE) Assessment/Plan - Problem List (1) Alcoholic ketoacidosis Impression: This is related to marked dehydration from longstanding vomiting in addition to her alcohol abuse. She has been on IV Banana Bag and she got a bicarb IV drip for a day, after admission to ICU. All labs were reviewed. Today her serum ketones are still present (small), but the serum bicarb has normalized as of yesterday. Plan: Remain in the ICU on telemetry. Cont IV crystalloid fluids, and a Banana bag today. Stop Banana bag after this one finished tonite Follow her serum ketones every 3 hours until neg. Advance diet (2) Alcohol withdrawal Conclusion/Plan: Despite having some alcohol present on her admission serum blood tests, she was scoring 24 on her CIWA score at presentation. Yesterday she was scoring 12. Today she is scoring 4-8. She has awoken and has normal speech but has a tremor of her head and her hands Plan: Cont CIWA protocol with high-dose ICU doses of Ativan prn Cont a banana bag for IV hydration today. Tomorrow will start oral Thiamine daily Librium scheduled QID will be started this morning as she starts a diet She is not yet medically cleared to be seen by social sciences department chair today. She does voice that she wants to go to inpatient alcohol rehab (3) C. diff diarrhea Conclusion/Plan: On 07/12 the patient has had 4 loose stools that were very malodorous, suspicious for C. difficile. C. diff PCR was sent off and she is (+) Plan: Isolation precautions Start p.o. Vanco QID (4) Acute pancreatitis Conclusion/Plan: Lipase at adm was 144 and then [place] to 349 yesterday 07/12>> 514 today. There wa s no imaging done when she was in ER, to know the status of her pancreas, since our CT scanner was broken. CT was done 07/12 and she has mild fat stranding consistent with acute pancreatitis, no pseudocyst. Plan: Begin a clear liquid diet today, advance as tolerated Give IV antiemetics and IV narcotics as needed for pain control Cont IV fluids as above For ulcer prophylaxis, cont empiric PPI iv BID Follow Lipase level daily (5) Hypokalemia Conclusion/Plan: Likely from poor nutritional intake, then losses in N/V and now in new diarrhea since 07/14. Plan: Replace with repeated iv K riders Check K again today and cont replacements if needed Follow BMP daily. (6) Hypomagnesemia Conclusion/Plan: Also from poor nutritional intake and from losses in vomiting Plan: Replace with Mg riders Follow-up magnesium daily (7) Alcohol abuse Conclusion/Plan: As per Hx. At admission she mentioned that she drinks vodka, yesterday she said she drinks wine. Today she voiced that she "just has 3 vodka mixed drinks daily" She did tell her RN that she used [place] a different state and was for 35 years then her so she returned back to [facility] and lives with her mother and her sister. She started drinking alcohol after the and the mother and sister seem to enable her. Plan: Cont a banana bag for IV hydration today. Tomorrow will start oral Thiamine daily Follow her CMP and CBC daily Cont empiric IV twice daily Protonix, change to po tomorrow She is not yet medically cleared to be seen by social sciences department chair today. She does voice that she wants to go to inpatient alcohol rehab
[2023-07-13] MEDS: POTASSIUM CHLOR 10 MEQ/100 ML 10 MEQ/100 ML BAG IV SCH ×6 (07:41→23:48)
[2023-07-13] MEDS: MULTIVITAMIN 10 ML, THIAMINE INJ 100 MG, FOLIC ACID INJ 1 MG in SODIUM CHLORIDE 0.9% 1,... IV SCH (08:20)
[2023-07-13] MEDS: VANCOMYCIN 125 MG CAPSULE PO SCH ×4 (08:21→20:50)
[2023-07-13] MEDS: PANTOPRAZOLE 40 MG VIAL IVP SCH ×2 (08:21→20:50)
[2023-07-13] MEDS: NICOTINE 14 MG PATCH TOP SCH (08:21)
[2023-07-13] MEDS: SODIUM CHLORIDE FLUSH 0.9% 10 ML SYRINGE IVP SCH ×2 (08:21→17:05)
[2023-07-13] MEDS: chlordiazePOXIDE 5 MG CAPSULE PO SCH ×3 (12:25→23:47)
[2023-07-13 14:19] LABS: CALCIUM, IONIZED 1.14 mmol/L (1.15-1.33); VBG PH 7.498 (7.31-7.41)
[2023-07-13 14:38] LABS: MAGNESIUM 1.6 mg/dL (1.7-2.3); PHOSPHORUS 1.6 mg/dL (2.5-5.0); POTASSIUM 3.3 mmol/L (3.5-4.5)
[2023-07-13] MEDS: INSULIN LISPRO 300 UNIT/3 ML PEN SUBQ SCH (20:39)
[2023-07-13 22:49] LABS: CALCIUM, IONIZED 1.13 mmol/L (1.15-1.33); VBG PH 7.518 (7.31-7.41)
[2023-07-13 22:55] LABS: MAGNESIUM 1.8 mg/dL (1.7-2.8); PHOSPHORUS 1.9 mg/dL (2.5-4.6); POTASSIUM 2.8 mmol/L (3.5-5.0)
[2023-07-13] MEDS ORDERED: MAGNESIUM OXIDE 400 MG TABLET PO ONE (23:33)
[2023-07-13] MEDS: NEUTRA-PHOS 250 MG TABLET PO SCH (23:47)
[2023-07-14] MEDS ORDERED: ACETAMINOPHEN 325 MG TABLET PO PRN (00:12)
[2023-07-14] MEDS: POTASSIUM CHLOR 10 MEQ/100 ML 10 MEQ/100 ML BAG IV SCH ×5 (00:54→06:19)
[2023-07-14] MEDS: NEUTRA-PHOS 250 MG TABLET PO SCH (03:06)
[2023-07-14] MEDS: SODIUM CHLORIDE FLUSH 0.9% 10 ML SYRINGE IVP SCH ×3 (03:07→17:27)
[2023-07-14] MEDS: chlordiazePOXIDE 5 MG CAPSULE PO SCH ×4 (06:16→23:44)
[2023-07-14] MEDS: INSULIN LISPRO 300 UNIT/3 ML PEN SUBQ SCH ×4 (07:50→21:12)
[2023-07-14 08:12] LABS: BASOPHILS % (AUTO) 0.4 %; EOSINOPHILS # (AUTO) 0.1 10^3/uL (0.0-0.7); EOSINOPHILS % (AUTO) 1.7 %; HCT - HEMATOCRIT 37.2 % (37.0-47.0); HGB - HEMOGLOBIN 12.7 g/dL (12.0-16.0); LYMPHOCYTES % (AUTO) 20.9 %; MEAN CORPUSCULAR HGB CONC 34.1 g/dL (32.0-36.0); MEAN CORPUSCULAR VOLUME 99.5 fL (81.0-99.0); MEAN PLATELET VOLUME 10.2 fL (7.9-10.8); MONOCYTES # (AUTO) 0.4 10^3/uL (0.0-1.0); MONOCYTES % (AUTO) 8.9 %; NEUTROPHILS # (AUTO) 3.3 10^3/uL (1.5-6.6); NEUTROPHILS % (AUTO) 67.9 %; PLT - PLATELET COUNT 92 10^3/uL (130-450); RED BLOOD COUNT 3.74 10^6/uL (4.20-5.40); RED CELL DISTRIBUTION WIDTH 13.9 % (12.0-15.0); WHITE BLOOD COUNT 4.8 x10^3/uL (4.8-10.8)
[2023-07-14 08:13] LABS: CALCIUM, IONIZED 1.11 mmol/L (1.15-1.33); VBG PH 7.475 (7.31-7.41)
[2023-07-14 08:26] LABS: ALBUMIN 4.1 g/dL (3.2-5.5); ALBUMIN/GLOBULIN RATIO 1.3 (1.0-2.2); BILIRUBIN,TOTAL 1.1 mg/dL (0.2-1.0); CALCIUM 9.5 mg/dL (8.5-10.3); CREATININE 0.3 mg/dL (0.6-1.3); MAGNESIUM 1.3 mg/dL (1.7-2.3); PHOSPHORUS 2.7 mg/dL (2.5-5.0); POTASSIUM 3.6 mmol/L (3.5-4.5); TOTAL PROTEIN 7.3 g/dL (6.4-8.9)
[2023-07-14] MEDS: VANCOMYCIN 125 MG CAPSULE PO SCH ×4 (08:37→21:12)
[2023-07-14] MEDS: THIAMINE 100 MG TABLET PO SCH (08:37)
[2023-07-14] MEDS: PANTOPRAZOLE 40 MG VIAL IVP SCH (08:37)
[2023-07-14] MEDS: NICOTINE 14 MG PATCH TOP SCH (08:37)
[2023-07-14] MEDS: CALCIUM CARBONATE CHEW 500 MG TABLET PO SCH ×2 (08:58→11:58)
[2023-07-14] MEDS ORDERED: POTASSIUM CHLORIDE 20 MEQ/15 ML UDC PO ONE (09:55)
[2023-07-14] MEDS: MAGNESIUM SULFATE 2 GRAM 2 GM/50 ML BAG IV SCH ×2 (10:02→10:58)
[2023-07-14] MEDS: LORazepam 2 MG/ML VIAL IVP PRN ×2 (11:05→15:20)
[2023-07-14] MEDS: DEXTROSE 5%-0.9% NACL 1,000 ML IV SCH (13:15)
[2023-07-14 16:24] LABS: CALCIUM 9.7 mg/dL (8.5-10.3); MAGNESIUM 2.3 mg/dL (1.7-2.3); POTASSIUM 3.5 mmol/L (3.5-4.5)
--- NOTE | 2023-07-14 17:00 | PROVIDER PROGRESS NOTE ---
Subjective - Prog Note Date Prog Note Date: 07/14/23 Prog Note Time: 16:57 - Subjective Subjective: Yesterday so tremulous even with ativan IV 12 mg that librium added at 5 mg po q6h and nursing reports excellent response. Agitation almost all gone. Tremors gone. Able to answer questions. Oriented more often than not now. She thinks she is going home today and tells me her mom is pickig her up but both RN and social work say no. Current Medications - Current Medications Current Medications: Active Medications Acetaminophen (Acetaminophen 325 Mg Tablet) 650 mg PO Q6H PRN PRN Reason: Pain or Fever > 38C (100.4F) Chlordiazepoxide HCl (Chlordiazepoxide 5 Mg Capsule) 5 mg PO Q6HR [facility] Last Admin: 07/14/23 11:58 Dose: 5 mg Hydromorphone HCl (Hydromorphone 1 Mg/Ml Carpuject) 1 mg IVP Q2H PRN PRN Reason: Pain 8 to 10 Last Admin: 07/12/23 17:25 Dose: 1 mg Dextrose/Sodium Chloride (D5ns) 1,000 mls @ 40 mls/hr IV .Q25H [facility] Last Admin: 07/14/23 13:15 Dose: 40 mls/hr Insulin Human Lispro (Insulin Lispro 300 Unit/3 Ml Pen) 1 - 5 unit SUBQ 0800,1200,1700,2100 [facility]; Protocol Last Admin: 07/14/23 11:58 Dose: Not Given Lorazepam (Lorazepam 2 Mg/Ml Vial) 2 - 20 mg IVP Q15M PRN; Protocol PRN Reason: RASS > 0 Last Admin: 07/14/23 15:20 Dose: 2 mg Nicotine (Nicotine 14 Mg Patch) 1 patch TOP DAILY [facility] Last Admin: 07/14/23 08:37 Dose: 1 patch Ondansetron HCl (Ondansetron 4 Mg/2 Ml Vial) 4 mg IVP Q4HR PRN PRN Reason: Nausea / Vomiting Pantoprazole Sodium (Pantoprazole 40 Mg Vial) 40 mg IVP BID [facility] Last Admin: 07/14/23 08:37 Dose: 40 mg Potassium Chloride (Potassium Chloride 20 Meq Tablet) 20 meq PO Q2H [facility]; Protocol Stop: 07/14/23 19:01 Prochlorperazine Edisylate (Prochlorperazine 10 Mg/2 Ml Vial) 10 mg IVP Q6HR PRN PRN Reason: Nausea / Vomiting Sodium Chloride (Sodium Chloride Flush 0.9% 10 Ml Syringe) 10 ml IVP 0100,0900,1700 [facility] Last Admin: 07/14/23 08:38 Dose: 10 ml Sodium Chloride (Sodium Chloride Flush 0.9% 10 Ml Syringe) 10 ml IVP PRN PRN PRN Reason: NEEDED PER PROVIDER ORDERS Last Admin: 07/13/23 05:42 Dose: 10 ml Thiamine HCl (Thiamine 100 Mg Tablet) 100 mg PO DAILY [facility] Last Admin: 07/14/23 08:37 Dose: 100 mg Vancomycin HCl (Vancomycin 125 Mg Capsule) 125 mg PO QID [facility] Last Admin: 07/14/23 11:58 Dose: 125 mg No Known Home Medications 07/11/23 Objective - Vital Signs/Intake & Output Reviewed Vital Signs: Yes Vital Signs: Vital Signs Temp Pulse Resp BP Pulse Ox 07/14/23 16:04 90 19 141/89 H 95 07/14/23 15:00 36.7 C 91 18 123/74 99 07/14/23 14:09 92 18 122/79 95 07/14/23 13:00 88 21 127/79 95 Intake & Output: Intake & Output 07/11/23 07/12/23 07/13/23 07/14/23 23:59 23:59 23:59 23:59 Intake Total 1100 5926.979 4894.866 1930.000 Output Total 1025 3270 4900 2195 Balance 75 2656.979 -5.134 -265.000 - Objective General Appearance: positive: No acute distress, Alert, Other (speech slightly slurred, but sitting up, answering questions.) Eyes Bilateral: positive: PERRL, EOMI ENT: positive: Pharynx nml, No signs of dehydration Neck: positive: No JVD. negative: Stiff neck Respiratory: positive: No respiratory distress. negative: Wheezes, Rales, Rhonchi Cardiovascular: positive: Regular rate & rhythm. negative: Tachycardia Abdomen: positive: Non-tender (no pain in spite of rising lipase), No organomegaly, Nml bowel sounds, No distention Skin: positive: Warm, Dry Neurologic/Psychiatric: positive: CN's nml (2-12), Motor nml, Disoriented to place, Disoriented to time - Lab Results Fish Bones: 07/14/23 08:04 07/14/23 15:46 Other Labs: Lab Results x24hrs 07/14/23 07/14/23 07/14/23 Range/Units 15:46 11:55 08:04 WBC (4.8-10.8) x10^3/uL RBC (4.20-5.40) 10^6/uL Hgb (12.0-16.0) g/dL Hct (37.0-47.0) % MCV (81.0-99.0) fL MCH (27.0-31.0) pg MCHC (32.0-36.0) g/dL RDW (12.0-15.0) % Plt Count (130-450) 10^3/uL MPV (7.9-10.8) fL Neut # (Auto) (1.5-6.6) 10^3/uL Lymph # (Auto) (1.5-3.5) 10^3/uL [place] # (Auto) (0.0-1.0) 10^3/uL Eos # (Auto) (0.0-0.7) 10^3/uL Baso # (Auto) (0.0-0.1) 10^3/uL Absolute Nucleated RBC x10^3/uL Nucleated RBC % /100WBC VBG pH (7.31-7.41) Ionized Calcium (1.15-1.33) mmol/L Sodium (135-145) mmol/L Potassium 3.5 (3.5-5.0) mmol/L Chloride (101-111) mmol/L Carbon Dioxide (21-32) mmol/L Anion Gap (6-13) BUN (6-20) mg/dL Creatinine (0.6-1.3) mg/dL Estimated GFR (MDRD) (>89) Glucose (74-104) mg/dL POC Whole Bld Glucose 126 H (70 - 100) mg/dL Calcium 9.7 (8.5-10.3) mg/dL Phosphorus (2.5-4.6) mg/dL Magnesium 2.3 (1.7-2.8) mg/dL Total Bilirubin (0.2-1.0) mg/dL AST (10-42) IU/L ALT (10-60) IU/L Alkaline Phosphatase (42-121) IU/L Total Protein (6.4-8.9) g/dL Albumin (3.2-5.5) g/dL Globulin (2.1-4.2) g/dL Albumin/Globulin Ratio (1.0-2.2) Triglycerides 70 (48-352) mg/dL Lipase (11-82) U/L 07/14/23 07/14/23 07/14/23 Range/Units 08:04 08:04 08:04 WBC 4.8 (4.8-10.8) x10^3/uL RBC 3.74 L (4.20-5.40) 10^6/uL Hgb 12.7 (12.0-16.0) g/dL Hct 37.2 (37.0-47.0) % MCV 99.5 H (81.0-99.0) fL MCH 34.0 H (27.0-31.0) pg MCHC 34.1 (32.0-36.0) g/dL RDW 13.9 (12.0-15.0) % Plt Count 92 L (130-450) 10^3/uL MPV 10.2 (7.9-10.8) fL Neut # (Auto) 3.3 (1.5-6.6) 10^3/uL Lymph # (Auto) 1.0 L (1.5-3.5) 10^3/uL [place] # (Auto) 0.4 (0.0-1.0) 10^3/uL Eos # (Auto) 0.1 (0.0-0.7) 10^3/uL Baso # (Auto) 0.0 (0.0-0.1) 10^3/uL Absolute Nucleated RBC 0.00 x10^3/uL Nucleated RBC % 0.0 /100WBC VBG pH 7.475 H (7.31-7.41) Ionized Calcium 1.11 L (1.15-1.33) mmol/L Sodium 138 (135-145) mmol/L Potassium 3.6 (3.5-5.0) mmol/L Chloride 103 (101-111) mmol/L Carbon Dioxide 27 (21-32) mmol/L Anion Gap 8.0 (6-13) BUN 3 L (6-20) mg/dL Creatinine 0.3 L (0.6-1.3) mg/dL Estimated GFR (MDRD) 228 (>89) Glucose 152 H (74-104) mg/dL POC Whole Bld Glucose (70 - 100) mg/dL Calcium 9.5 (8.5-10.3) mg/dL Phosphorus 2.7 (2.5-4.6) mg/dL Magnesium 1.3 L (1.7-2.8) mg/dL Total Bilirubin 1.1 H (0.2-1.0) mg/dL AST 53 H (10-42) IU/L ALT 31 (10-60) IU/L Alkaline Phosphatase 53 (42-121) IU/L Total Protein 7.3 (6.4-8.9) g/dL Albumin 4.1 (3.2-5.5) g/dL Globulin 3.2 (2.1-4.2) g/dL Albumin/Globulin Ratio 1.3 (1.0-2.2) Triglycerides (48-352) mg/dL Lipase 900 H (11-82) U/L 07/14/23 07/13/23 07/13/23 Range/Units 07:47 22:35 22:35 WBC (4.8-10.8) x10^3/uL RBC (4.20-5.40) 10^6/uL Hgb (12.0-16.0) g/dL Hct (37.0-47.0) % MCV (81.0-99.0) fL MCH (27.0-31.0) pg MCHC (32.0-36.0) g/dL RDW (12.0-15.0) % Plt Count (130-450) 10^3/uL MPV (7.9-10.8) fL Neut # (Auto) (1.5-6.6) 10^3/uL Lymph # (Auto) (1.5-3.5) 10^3/uL [place] # (Auto) (0.0-1.0) 10^3/uL Eos # (Auto) (0.0-0.7) 10^3/uL Baso # (Auto) (0.0-0.1) 10^3/uL Absolute Nucleated RBC x10^3/uL Nucleated RBC % /100WBC VBG pH 7.518 H (7.31-7.41) Ionized Calcium 1.13 L (1.15-1.33) mmol/L Sodium (135-145) mmol/L Potassium 2.8 L (3.5-5.0) mmol/L Chloride (101-111) mmol/L Carbon Dioxide (21-32) mmol/L Anion Gap (6-13) BUN (6-20) mg/dL Creatinine (0.6-1.3) mg/dL Estimated GFR (MDRD) (>89) Glucose (74-104) mg/dL POC Whole Bld Glucose 140 H (70 - 100) mg/dL Calcium (8.5-10.3) mg/dL Phosphorus 1.9 L (2.5-4.6) mg/dL Magnesium 1.8 (1.7-2.8) mg/dL Total Bilirubin (0.2-1.0) mg/dL AST (10-42) IU/L ALT (10-60) IU/L Alkaline Phosphatase (42-121) IU/L Total Protein (6.4-8.9) g/dL Albumin (3.2-5.5) g/dL Globulin (2.1-4.2) g/dL Albumin/Globulin Ratio (1.0-2.2) Triglycerides (48-352) mg/dL Lipase (11-82) U/L 07/13/23 Range/Units 17:49 WBC (4.8-10.8) x10^3/uL RBC (4.20-5.40) 10^6/uL Hgb (12.0-16.0) g/dL Hct (37.0-47.0) % MCV (81.0-99.0) fL MCH (27.0-31.0) pg MCHC (32.0-36.0) g/dL RDW (12.0-15.0) % Plt Count (130-450) 10^3/uL MPV (7.9-10.8) fL Neut # (Auto) (1.5-6.6) 10^3/uL Lymph # (Auto) (1.5-3.5) 10^3/uL [place] # (Auto) (0.0-1.0) 10^3/uL Eos # (Auto) (0.0-0.7) 10^3/uL Baso # (Auto) (0.0-0.1) 10^3/uL Absolute Nucleated RBC x10^3/uL Nucleated RBC % /100WBC VBG pH (7.31-7.41) Ionized Calcium (1.15-1.33) mmol/L Sodium (135-145) mmol/L Potassium (3.5-5.0) mmol/L Chloride (101-111) mmol/L Carbon Dioxide (21-32) mmol/L Anion Gap (6-13) BUN (6-20) mg/dL Creatinine (0.6-1.3) mg/dL Estimated GFR (MDRD) (>89) Glucose (74-104) mg/dL POC Whole Bld Glucose 184 H (70 - 100) mg/dL Calcium (8.5-10.3) mg/dL Phosphorus (2.5-4.6) mg/dL Magnesium (1.7-2.8) mg/dL Total Bilirubin (0.2-1.0) mg/dL AST (10-42) IU/L ALT (10-60) IU/L Alkaline Phosphatase (42-121) IU/L Total Protein (6.4-8.9) g/dL Albumin (3.2-5.5) g/dL Globulin (2.1-4.2) g/dL Albumin/Globulin Ratio (1.0-2.2) Triglycerides (48-352) mg/dL Lipase (11-82) U/L Assessment/Plan - Problem List (1) Alcoholic ketoacidosis Impression: This is related to marked dehydration from longstanding vomiting in addition to her alcohol abuse. She has been on IV Banana Bag and she got a bicarb IV drip for a day, after admission to ICU. Banana bag stopped 07/13. Last ketones checked yesterday but I have opted not to check today. Bicarb normal 07/12. Plan: Remain in the ICU on telemetry today but transfer to [facility] tomorrow. Advance diet tomorrow in view of the rising lipase (no abd pain) (2) Alcohol withdrawal Conclusion/Plan: Despite having some alcohol present on her admission serum blood tests, she was scoring 24 on her CIWA score at presentation. 07/12 she was scoring 12. 07/13 she had librium added and CIWA 4-6 today. She is awake this am, no tremor on exam, but disoriented. Oral thiamine started 07/13. Plan: Cont CIWA protocol with high-dose ICU doses of Ativan prn Continue thiamine Continue Librium scheduled QID She is not yet medically cleared to be seen by social media campaign manager today. She forgot that she wanted inpatient rehab and now wants home but mom is not picking her up. (3) C. diff diarrhea Conclusion/Plan: On 07/12 the patient has had 4 loose stools that were very malodorous, suspicious for C. difficile. C. diff PCR was sent off and she is (+). today less frequent stools. Plan: Isolation precautions Continue p.o. Vanco QID (4) Acute pancreatitis Conclusion/Plan: Lipase at adm was 144 and then>> 349>>514>>900 today. There was no imaging done when she was in ER, to know the status of her pancreas, since our CT scanner was broken. She has no abd pain. CT eventually done 07/12 and she has mild fat stranding consistent with acute pancreatitis, no pseudocyst. Plan: Continue a clear liquid diet, advance as tolerated Continue IV antiemetics and IV narcotics as needed for pain control Cont IV fluids as above For ulcer prophylaxis, cont empiric PPI iv BID Follow Lipase level daily (5) Hypokalemia Conclusion/Plan: Likely from poor nutritional intake, then losses in N/V and now in new diarrhea since 07/14. She is normal today after having replacement of IV K riders. Plan: Follow BMP daily. (6) Hypomagnesemia Conclusion/Plan: Also from poor nutritional intake and from losses in vomiting. Normal today after supplementation. Plan: Replace with Mg riders prn Follow-up magnesium daily (7) Alcohol abuse Conclusion/Plan: As per Hx. At admission she mentioned that she drinks vodka, then she said she drinks wine. 07/13 voiced that she "just has 3 vodka mixed drinks daily" She did tell her RN that [place] used [place] different [place] and was for 35 years then her so she returned back to [facility] and lives with her mother and her sister. She started drinking alcohol after the and the mother and sister seem to enable her. Plan: Oral thiamine as of today Follow her CMP and CBC daily Change to po protonix today She is not yet medically cleared to be seen by social media campaign manager today. She does voice that she wants to go to inpatient alcohol rehab
[2023-07-14] MEDS: POTASSIUM CHLORIDE 20 MEQ TABLET PO SCH ×2 (17:27→18:49)
[2023-07-14] MEDS: PANTOPRAZOLE 40 MG TABLET PO SCH (21:12)
[2023-07-14 23:18] LABS: CALCIUM, IONIZED 1.16 mmol/L (1.15-1.33); VBG PH 7.479 (7.31-7.41)
[2023-07-15] MEDS: SODIUM CHLORIDE FLUSH 0.9% 10 ML SYRINGE IVP SCH ×2 (00:10→09:40)
[2023-07-15 05:17] LABS: BASOPHILS % (AUTO) 0.5 %; EOSINOPHILS # (AUTO) 0.1 10^3/uL (0.0-0.7); EOSINOPHILS % (AUTO) 1.5 %; HCT - HEMATOCRIT 36.8 % (37.0-47.0); HGB - HEMOGLOBIN 12.2 g/dL (12.0-16.0); LYMPHOCYTES # (AUTO) 1.1 10^3/uL (1.5-3.5); LYMPHOCYTES % (AUTO) 19.8 %; MEAN CORPUSCULAR HEMOGLOBIN 33.2 pg (27.0-31.0); MEAN CORPUSCULAR HGB CONC 33.2 g/dL (32.0-36.0); MEAN CORPUSCULAR VOLUME 100.3 fL (81.0-99.0); MEAN PLATELET VOLUME 9.8 fL (7.9-10.8); MONOCYTES # (AUTO) 0.9 10^3/uL (0.0-1.0); MONOCYTES % (AUTO) 15.8 %; NEUTROPHILS # (AUTO) 3.4 10^3/uL (1.5-6.6); NEUTROPHILS % (AUTO) 62.2 %; PLT - PLATELET COUNT 111 10^3/uL (130-450); RED BLOOD COUNT 3.67 10^6/uL (4.20-5.40); RED CELL DISTRIBUTION WIDTH 13.8 % (12.0-15.0); WHITE BLOOD COUNT 5.5 x10^3/uL (4.8-10.8)
[2023-07-15 05:25] LABS: CALCIUM, IONIZED 1.17 mmol/L (1.15-1.33); VBG PH 7.435 (7.31-7.41)
[2023-07-15 05:33] LABS: MAGNESIUM 1.6 mg/dL (1.7-2.3); PHOSPHORUS 3.1 mg/dL (2.5-5.0)
[2023-07-15] MEDS ORDERED: MAGNESIUM OXIDE 400 MG TABLET PO ONE (06:00)
[2023-07-15] MEDS: chlordiazePOXIDE 5 MG CAPSULE PO SCH (06:00)
[2023-07-15] MEDS ORDERED: ZINC OXIDE 20% OINT 30 GM TUBE TOP PRN (07:20)
[2023-07-15] MEDS: INSULIN LISPRO 300 UNIT/3 ML PEN SUBQ SCH ×2 (08:24→12:39)
[2023-07-15] MEDS: NICOTINE 14 MG PATCH TOP SCH (08:25)
[2023-07-15] MEDS: PANTOPRAZOLE 40 MG TABLET PO SCH (08:26)
[2023-07-15] MEDS: THIAMINE 100 MG TABLET PO SCH (08:26)
[2023-07-15] MEDS: VANCOMYCIN 125 MG CAPSULE PO SCH ×2 (08:26→13:30)
[2023-07-15] MEDS: SODIUM CHLORIDE FLUSH 0.9% 10 ML SYRINGE IVP PRN (09:37)
--- NOTE | 2023-07-15 14:39 | Discharge Plan ---
Discharge Plan Problem Reviewed?: Yes Disposition: Home, Self Care Condition: Fair Prescriptions: Pnv No.121/Iron/Folic Acid [ Multivitamin Tablet] 1 each PO DAILY #100 tablet Vancomycin [Vancocin] 125 mg PO QID 13 Days #52 cap Thiamine [Vitamin B-1] 100 mg PO DAILY #30 tab Diet: Regular Activity Restrictions: No alcohol at all Shower Restrictions: No Driving Restrictions: No Health Concerns: You presented to the hospital with symptoms of alcohol withdrawal. After being seen in the emergency room you were brought into the hospital because of the severity of your symptoms. We use medications that were basically tranquilizers to get you through the withdrawal. In the last 2 days you have been gradually more and more alert. Today you felt that you were ready to go home. While you were here we also evaluated you for diarrhea and you do have an infectious diarrhea called C. difficile colitis. You are now on antibiotics for that. Plan of Treatment: Please establish yourself with a primary care provider. You really need to see 1 in the next 2 to 3 weeks to make sure that your colitis has resolved. We are sending you home on 13 more days of the Vancocin capsule to treat the colitis. And alcohol abuse, your body develops a folate acid and thiamine deficiency. As such we are asking you to take a vitamin once a day. And also take thiamine 100 mg tablets a day. You have committed yourself to never drinking again but do not have a clear plan for how you are going to stay off alcohol. At this time your plans are to find solace and support from your sister, mother, and brother. You are opting not to go to inpatient rehab anymore. You are also exploring options with [facility] in [place]. Care Goals: You are stating that you will "never drink again" Assessment: Patient is alert, oriented, no tremors, no tachycardia, no hypertension No Smoking: If you smoke, Please STOP! Call for help.
--- NOTE | 2023-07-15 14:43 | DISCHARGE SUMMARY ---
Discharge Summary Admit Date: 07/11/23 Discharge Date: 07/15/23 Discharging Provider: Sarah Jones MD Primary Care Provider: none Code Status: Attempt Resuscitation Condition at Discharge: Fair Discharge Disposition: 01 Home, Self Care - HPI History of Present Illness: This is a 57-year-old female with a history of alcohol abuse drinks a large bottle of vodka every 2 days. There is a history of DTs but no alcohol withdrawal seizures. The patient presented to the ED complaining of nausea vomiting for 1 week. She can keep nothing down, not even liquids. She presented with a heart rate of 130 in sinus tachycardia, syst blood pressure 118. Labs showed a bicarb of 12 and ABG showed pH of 7.18, PCO2 30. The patient reported she has had no alcohol for 2 days however her serum alcohol level is 115. She complained of shortness of breath and was tachypneic but chest x-ray showed no abnormal findings. Lipase level is 144. No lactic acid level was done. No CT imaging was done because the CT scanner is currently broken. The ED provider spoke to me about this patient. The patient will be admitted to the Hospitalist service to the ICU in critical condition and started on treatment for alcoholic ketoacidosis and alcohol withdrawal. There is no POLST on record. She is unable to give accurate answers, therefore by default she will be a full code. - Past Medical History HEENT: reports: Chronic hearing loss Psych: reports: Other Other Past Medical History: Deaf R ear, ETOH abuse - CONSULTS | PROCEDURES Procedures: 1. Chest x-ray without acute cardiopulmonary process 2. Abdomen/pelvis CT with minimal inflammatory changes surrounding the pancreas but there are no masses or pancreatic ductal dilatation. No biliary dilatation. Trace amount of layering free fluid in the pelvis. The rest of her solid organs appear normal. - HOSPITAL COURSE Hospital Course: The patient's tremulousness and agitation resulted in a placement in the ICU with the CIWA protocol being instituted. She was initially controlled with Ativan IV push. Librium was added on July 13 as a fixed maintenance dose of 5 mg p.o. 4 times daily and that helped quite a bit. But the she was awake, alert. Lucid. Starting to backtrack on going into inpatient rehab. She felt that she could go home and could control this on her own with the help of sister, mother, brothers. On the day of discharge she was ambulatory in her room. She had some spastic ataxia on the that had resolved by the . She was eating food. No nausea or vomiting. Blood pressure was stable, no tachycardia, no diaphoresis, no tremors. She did have diarrhea during her stay and was identified as C. difficile diarrhea. Vancocin was started on July 13 that she needed to 2 weeks of therapy. Alcoholic ketoacidosis was presumed to have been resolved on a normal BMP. Hypomagnesemia and hypokalemia were supplemented and levels were normal at discharge. She was felt to have mild acute pancreatitis with a rising lipase. But the patient had no abdominal pain, was keeping food down without increased abdominal pain, and as such I do not think her pancreatitis was that pronounced was more of a lab finding than true abdominal pain. I have asked her to start thiamine in the outpatient setting. I have also asked her to do vitamin. She is to complete Vancocin therapy. She does not have a primary care provider I have asked her to please to establish yourself with 1. Right now she is not getting to any rehab whatsoever and focus on "healing myself" by staying at home with her mother and her sister. She is firm and stating she will never drink again. At discharge temperature is 37.1. Heart rate is 112. Blood pressure 130/96. Respirations 16. 95% on room air. She is a thin female at 5 foot 5 inch tall, 62 kg. Sitting upright in a chair after ambulating in her room to go to the bathroom. No tachypnea, increased respiratory effort. Regular rate and rhythm that is still slightly tachycardic but she feels like she really wants to go home. Abdomen is soft, and nontender. No rebound or guarding with normal bowel sounds. The only pain she seems to be feeling is a headache with a 2 out of a 10 scale. Extremities are thin without edema. She is ambulating in her room without ataxia. Greater than 30 minutes was spent coordinating discharge. Patient is discharged in stable condition. This document was made in part using voice recognition software. While efforts are made to proofread this document, sound alike and grammatical errors may occur. - ALLERGIES Allergies/Adverse Reactions: Allergies Allergy/AdvReac Type Severity Reaction Status Date / Time No Known Drug Allergies Allergy Verified 06/04/22 01:35 - MEDICATIONS Home Medications: Ambulatory Orders Medication Instructions Recorded Confirmed Pnv No.121/Iron/Folic Acid 1 each PO DAILY #100 tablet 07/15/23 [ Multivitamin Tablet] Thiamine [Vitamin B-1] 100 mg PO DAILY #30 tab 07/15/23 Vancomycin [Vancocin] 125 mg PO QID 13 Days #52 cap 07/15/23 Zinc Oxide 20% Oint [Zinc Oxide] 1 applic TOP PRN PRN each 07/15/23 - LABS Result Diagrams: 07/15/23 05:05 07/15/23 05:05
[2023-07-15 15:06] VITALS: BP 126/78; O2SAT 98
== END 2023-07-15 15:18 | disposition home or self-care (01) | DRG 640 ==
LOC: ED 10:52 → ICU 13:58
PROVIDERS: ADMIT Internal Medicine; ATTEND Specialist
DX: E87.29 Other acidosis (principal); K85.90 Acute pancreatitis without necrosis or infection, unspecified; F10.139 Alcohol abuse with withdrawal, unspecified; A04.72 Enterocolitis due to Clostridium difficile, not specified as recurrent; E87.6 Hypokalemia; E83.42 Hypomagnesemia; R51.9 Headache, unspecified; E86.0 Dehydration; F17.200 Nicotine dependence, unspecified, uncomplicated
CPT/HCPCS: 36415; 36600; 71045; 74176; 80053; 80320; 81001; 82009; 82310; 82330; 82803; 83036; 83690; 83735; 84100; 84132; 84478; 85025; 87150; 87493; 93005; 96374; 96375; 97116; 97162; 97166; 99285; A9270; J1170; J1815; J2060; J2765; J3411; J8499; 87086

== ENCOUNTER 2023-12-15 10:19 | Outpatient (CLI) | payer MEDICAID ==
--- NOTE | 2023-12-17 09:42 | Mammography Report ---
BILATERAL DIGITAL SCREENING MAMMOGRAM 3D/2D: 12/15/2023 CLINICAL: Baseline exam. Routine screening. No prior exams were available for comparison. Both breasts are heterogeneously dense, which may obscure small masses (category c / 51-75% glandular tissue). No significant masses, calcifications, or other findings are seen in either breast. IMPRESSION: NEGATIVE There is no mammographic evidence of malignancy. A 1 year screening mammogram is recommended. Based on the Tyrer Cuzick model (a risk assessment model) the patient's lifetime risk is 9.4% and her 10 year risk is 3.8%. According to the ACR, ACS, and NCCN guidelines, an annual breast MRI exam eliana g with mammogram is recommended if the patient's lifetime risk is 20% or greater. This exam was interpreted at Station ID: [id number]. NOTE: For mammograms, a report in lay terms will be sent to the patient. Approximately 15% of breast malignancies will not be visualized mammographically. In the management of a palpable breast mass, a negative mammogram must not discourage biopsy of a clinically suspicious lesion. Electronically Signed By: Emma vick/vinny:12/16/2023 15:29:46 ACR BI-RADS Category 1: Negative 3341F PARENCHYMAL PATTERN: (D) - The breast(s) demonstrate(s) heterogeneously dense fibroglandular suzy eugene. BI-RADS CATEGORY: (1) - 1 Mammogram [id number] 1 year screening LATERALITY: (B)
== END 2023-12-15 10:20 | disposition home or self-care (01) ==
LOC: DI.N 10:19
PROVIDERS: ATTEND Family Medicine
DX: Z12.31 Encounter for screening mammogram for malignant neoplasm of breast (principal); R92.333 Mammographic heterogeneous density, bilateral breasts

== ENCOUNTER 2024-01-27 06:21 | Outpatient (CLI) | payer MEDICAID | END 2024-01-27 23:59 | disposition critical access hospital (66) | LOC: EMS 06:21 | DX: R10.816 Epigastric abdominal tenderness (principal); R11.2 Nausea with vomiting, unspecified; R42 Dizziness and giddiness | CPT/HCPCS: A0425; A0427; A0999 ==

== ENCOUNTER 2024-01-27 06:28 | Inpatient (IN) | payer MEDICAID ==
--- NOTE | 2024-01-27 06:35 | ED Physician Documentation ---
PD HPI NVD - Stated complaint Stated Complaint: N/V - History obtained from History obtained from: Patient, EMS - History of Present Illness Timing - onset: How many days ago (4) Timing - duration: Days (4) Timing - details: Gradual onset, Still present Associated symptoms: Abdominal pain, Other (vomiting) Contributing factors: Other (hx of pancreatitis) Improved by: Laying still, Vomiting Worsened by: Moving, Breathing, Position, Palpation Similar symptoms before: Diagnosis (pancreatitis) Recently seen: Not recently seen - Additonal information Additional information: 58-year-old female with a history of pancreatitis states that 4 days ago she began to feel symptoms of epigastric pain and nausea. She has mostly been consuming liquids she has tried to have some food all of which has come up. She has worsening pain and persistent nausea and vomiting. She usually drinks vodka and orange juice and she has had her last drink about 2 days ago. She is having some shakiness now. Review of Systems Constitutional: denies: Fever Eyes: denies: Decreased vision Ears: denies: Ear pain Nose: denies: Rhinorrhea / runny nose, Congestion Throat: denies: Sore throat Cardiac: denies: Chest pain / pressure, Palpitations Respiratory: denies: Dyspnea, Cough GI: reports: Abdominal Pain, Nausea, Vomiting : denies: Dysuria, Frequency Skin: denies: Rash Musculoskeletal: denies: Neck pain, Back pain, Extremity pain PD PAST MEDICAL HISTORY - Past Medical History Cardiovascular: None Respiratory: None Neuro: None Endocrine/Autoimmune: None GI: None : None HEENT: Chronic hearing loss Psych: Other Musculoskeletal: None Derm: None - Past Surgical History Past Surgical History: No - Present Medications Home Medications: Ambulatory Orders Medication Instructions Recorded Confirmed Famotidine [Pepcid] 20 mg PO BID 01/27/24 01/27/24 Sertraline HCl 150 mg PO DAILY 01/27/24 01/27/24 hydrOXYzine HCL [Hydroxyzine HCl] 25 mg PO PRN PRN 01/27/24 01/27/24 - Allergies Allergies/Adverse Reactions: Allergies Allergy/AdvReac Type Severity Reaction Status Date / Time No Known Drug Allergies Allergy Verified 01/27/24 06:43 - Social History Does the pt smoke?: Yes Smoking Status: Current every day smoker Does the pt drink ETOH?: Yes Does the pt have substance abuse?: No PD ED PE NORMAL - Vitals Vital signs reviewed: Yes - General General: Alert and oriented X 3, Well developed/nourished, Other (thin 58 y/o female clutching an emesis bag appears aggitatec. ) - HEENT HEENT: Atraumatic, PERRL, EOMI, Other (parched mucous membranes. ) - Neck Neck: Supple, no meningeal sign, No bony TTP - Cardiac Cardiac: No murmur, Other (tachy to 120) - Respiratory Respiratory: No respiratory distress, Clear bilaterally - Abdomen Abdomen: Normal bowel sounds, Soft, Non distended, No organomegaly, Other (point tenderness to the epigastric region. ) - Back Back: No CVA TTP, No spinal TTP - Derm Derm: Normal color, Warm and dry, No rash - Extremities Extremities: No deformity, No edema - Neuro Neuro: Alert and oriented X 3, carton counter feeder 2-12 intact, No motor deficit, No sensory deficit, Normal speech Eye Opening: Spontaneous Motor: Obeys Commands Verbal: Oriented GCS Score: 15 - Psych Psych: Normal mood, Normal affect Results - Vitals Vitals: Vital Signs - 24 hr 01/27/24 06:35 Temperature 36.7 C Heart Rate 123 H Respiratory 18 Rate Blood Pressure 113/64 O2 Saturation 97 Oxygen O2 Source Room air - Labs Labs: Laboratory Tests 01/27/24 01/27/24 06:40 06:40 WBC 10.0 RBC 4.95 Hgb 14.5 Hct 46.6 MCV 94.1 MCH 29.3 MCHC 31.1 L RDW 16.7 H Plt Count 120 L MPV 9.7 Neut # (Auto) 8.4 H Lymph # (Auto) 0.8 L [place] # (Auto) 0.7 Eos # (Auto) 0.0 Baso # (Auto) 0.1 Absolute Nucleated RBC 0.02 Nucleated RBC % 0.2 Sodium 140 Potassium 4.0 Chloride 93 L Carbon Dioxide 12 L* Anion Gap 35.0 H BUN 19 Creatinine 1.3 Estimated GFR (MDRD) 42 L Glucose 111 H Calcium 8.9 Total Bilirubin 0.7 AST 186 H ALT 78 H Alkaline Phosphatase 70 Total Protein 7.9 Albumin 4.9 Globulin 3.0 Albumin/Globulin Ratio 1.6 Lipase 115 H Procedures - IVC sono (time) 0645 Bedside IVC sono: IVC measures (cm) (1.02), Dehydration (est 2 liter deficit) PD Medical Decision Making - ED course Complexity details: reviewed old records, reviewed results, re-evaluated patient, considered differential, d/w patient ED course: 58-year-old female with a prior history of pancreatitis has continued to drink and she has developed symptoms again. Despite 2 days of liquid diet she continues to have symptoms and comes to the emergency department with abdominal pain nausea and vomiting.Her examination is consistent with acute pancreatitis. She has had prior admission to the intensive care unit about 1 year ago. Her laboratory results are consistent with the possibility of alcoholic keto acidosis. She is administered a banana bag IV. CT scan of the abdomen pelvis is pending and care of the patient is turned over to Dr. Rankin at shift change.
[2024-01-27] MEDS ORDERED: PROMETHAZINE 25 MG/1 ML VIAL ONE (06:45)
[2024-01-27 06:46] LABS: BASOPHILS # (AUTO) 0.1 10^3/uL (0.0-0.1); BASOPHILS % (AUTO) 0.5 %; EOSINOPHILS % (AUTO) 0.1 %; HCT - HEMATOCRIT 46.6 % (37.0-47.0); HGB - HEMOGLOBIN 14.5 g/dL (12.0-16.0); LYMPHOCYTES # (AUTO) 0.8 10^3/uL (1.5-3.5); LYMPHOCYTES % (AUTO) 8.2 %; MEAN CORPUSCULAR HEMOGLOBIN 29.3 pg (27.0-31.0); MEAN CORPUSCULAR HGB CONC 31.1 g/dL (32.0-36.0); MEAN CORPUSCULAR VOLUME 94.1 fL (81.0-99.0); MEAN PLATELET VOLUME 9.7 fL (7.9-10.8); MONOCYTES # (AUTO) 0.7 10^3/uL (0.0-1.0); MONOCYTES % (AUTO) 6.9 %; NEUTROPHILS # (AUTO) 8.4 10^3/uL (1.5-6.6); NEUTROPHILS % (AUTO) 83.5 %; NRBC ABSOLUTE COUNT (AUTO) 0.02 x10^3/uL; NUCLEATED RED BLOOD CELLS AUTO 0.2 /100WBC; PLT - PLATELET COUNT 120 10^3/uL (130-450); RED BLOOD COUNT 4.95 10^6/uL (4.20-5.40); RED CELL DISTRIBUTION WIDTH 16.7 % (12.0-15.0)
[2024-01-27] MEDS: PROMETHAZINE INJ 25 MG in SODIUM CHLORIDE 0.9% 50 ML IV STA (06:48)
[2024-01-27] MEDS: HYDROmorphone 1 MG/ML CARPUJECT IVP STA (06:48)
[2024-01-27] MEDS: SODIUM CHLORIDE 0.9% 1,000 ML IV STA (06:48)
[2024-01-27] MEDS ORDERED: iohexoL-300 100 ML VIAL ONE (06:49)
[2024-01-27 07:07] LABS: ALBUMIN 4.9 g/dL (3.2-5.5); ALBUMIN/GLOBULIN RATIO 1.6 (1.0-2.2); BILIRUBIN,TOTAL 0.7 mg/dL (0.2-1.0); CALCIUM 8.9 mg/dL (8.5-10.3); CREATININE 1.3 mg/dL (0.6-1.3); TOTAL PROTEIN 7.9 g/dL (6.4-8.9)
[2024-01-27 07:20] LABS: KETONES, SERUM (ACETEST) SMALL (NEGATIVE)
[2024-01-27 07:30] LABS: VBG BASE EXCESS -19.5 mmol/L (-2 - +2); VBG HCO3 10.4 mmol/L (23-28); VBG OXYGEN SATURATION 52.6 % (60-80); VBG PCO2 38.4 mmHg (41-51); VBG PO2 35.8 mmHg (25-47); VBG TOTAL CO2 11.5 mmol/L (24-29)
[2024-01-27 07:30] LABS: MAGNESIUM 1.6 mg/dL (1.7-2.3)
[2024-01-27 07:31] LABS: VBG PH 7.049 (7.31-7.41)
[2024-01-27] MEDS ORDERED: MULTIVITAMIN 10 ML, THIAMINE INJ 100 MG, MAGNESIUM SULFATE 2 GM, FOLIC ACID INJ 1 MG in... IV SCH (08:00)
[2024-01-27] MEDS: MULTIVITAMIN 10 ML, THIAMINE INJ 100 MG, MAGNESIUM SULFATE 2 GM, FOLIC ACID INJ 1 MG in... IV SCH (08:25)
[2024-01-27 08:28] LABS: BILIRUBIN,URINE MODERATE (NEGATIVE); GLUCOSE, URINE (UA) NEGATIVE (NEGATIVE); KETONES,URINE (UA) 15 mg/dL (NEGATIVE); LEUKOCYTE ESTERASE, URINE NEGATIVE (NEGATIVE); NITRITE,URINE NEGATIVE (NEGATIVE); OCCULT BLOOD,URINE SMALL (NEGATIVE); PH,URINE 5.5 PH (5.0-7.5); PROTEIN,URINE 100 mg/dL (NEGATIVE); UROBILINOGEN,URINE 1 (NORMAL) E.U./dL (NORMAL)
[2024-01-27 08:30] LABS: CLARITY,URINE CLEAR (CLEAR)
[2024-01-27 08:36] LABS: BACTERIA,URINE Moderate /HPF (None Seen); RBC,URINE 0-5 /HPF (0-5); SQUAMOUS EPITHELIAL CELL,UR FEW Squamous (<= Few)
[2024-01-27] MEDS: LORazepam 2 MG/ML VIAL IVP STA (08:39)
[2024-01-27] MEDS: DROPERIDOL 5 MG/2 ML VIAL IVP STA (08:40)
[2024-01-27] MEDS: FAMOTIDINE 20 MG/2 ML VIAL IVP STA (08:42)
--- NOTE | 2024-01-27 08:44 | CT Report ---
PROCEDURE: Abdomen/Pelvis W INDICATIONS: epigastric pain hx/o pancreatitis CONTRAST: 100 TECHNIQUE: After the administration of intravenous contrast, a CT scan of the abdomen and pelvis was performed. Images were recorded and evaluated at appropriate window settings. Reformats: coronal and sagittal. F or radiation dose reduction, the following was used: automated exposure control, adjustment of mA and /or kV according to patient size. COMPARISON: 07/12/2023 FINDINGS: Image quality: Diagnostic. Lower chest: Unremarkable. Liver: No solid mass. Diffuse fatty infiltration. Mild hepatomegaly. Gallbladder and biliary tree: No radiopaque stones or wall thickening. No biliary dilation. Spleen: No splenomegaly. Pancreas: No pancreatic ductal dilation. Adrenals: No adrenal nodule. Kidneys and ureters: No hydronephrosis. No renal cystic lesion which requires follow up. No solid mas s. Stomach, bowel and peritoneum: Small to moderate hiatal hernia. No bowel distension. No pathologic fr ee fluid. Lymph nodes: No central or retroperitoneal adenopathy. Vessels: No infrarenal aortic aneurysm. Atherosclerotic vascular desiccation. PELVIS Reproductive organs: Unremarkable. Bladder: No abnormal wall thickening, accounting for underdistention. Pelvic lymph nodes: No pelvic adenopathy by size criteria. Bones: No aggressive osseous abnormality. Degenerative changes of the spine. Other: No significant ventral or inguinal hernia. IMPRESSION: 1.No cause for patient's pain is identified. The pancreas appears normal without surrounding inflamma tion. 2.Hepatic steatosis and mild hepatomegaly. Reviewed by: Christopher Kidd MD on 01/27/2024 8:42 AM PDT Approved by: Christopher Kidd MD on 01/27/2024 8:42 AM PDT Station ID: [id number]
[2024-01-27] MEDS: PHENobarbital 65 MG/ML VIAL IV STA (08:45)
[2024-01-27] MEDS: D5.45NS W/20 MEQ KCL 1,000 ML IV STA (08:58)
[2024-01-27] MEDS ORDERED: ONDANSETRON ODT 4 MG TABLET TL PRN (08:58)
[2024-01-27] MEDS ORDERED: LACTATED RINGERS 1,000 ML IV SCH (09:00)
[2024-01-27] MEDS: THIAMINE INJ 500 MG in SODIUM CHLORIDE 0.9% 50 ML IV STA (09:00)
[2024-01-27] MEDS: NICOTINE 14 MG PATCH TOP STA (09:01)
--- NOTE | 2024-01-27 09:01 | ED Physician Documentation ---
ED Addendum - Addendum Addendum: 01/27/24 08:56 The patient has had couple days of nausea vomiting upper abdominal pain. She had still been drinking alcohol though states she has had much less the last couple of days than usual. Feeling shaky and with some alcohol withdrawal. History of pancreatitis recent past. Had been doing okay recently with fluid and food intake. Describes no recent weight loss. She had moved from [facility] back here to be with her mother and sister has a place to stay. She states she drinks steadily through the day and feels shaky if she does not. She has been trying to hide it from her family. Her initial lab work was showing a low carbon dioxide of 12. This spurred albertoo swati for other conditions and more blood tests were ordered including a venous blood gas, magnesium, phosphorus, ketones. This is showing a apparent that I alcoholic ketoacidosis. pH is 7.02. Ketones are present in the serum. Her magnesium is a bit low at 1.6. Phosphorus is still pending. Her blood sugar is only minimally elevated approximately 111. We will add a D5 half-normal saline with potassium IV in order to maintain sugar. This can be adjusted. Alcohol level is still 184 and so the addition of the dextrose is important in order to slow down or impair the metabolism of the alcohol to the ketoacids. Hydration and general help as well. She could be allowed to have a clear liquid diet though the stomach pain with the elevated lipase will limit her oral intake initially. She had been given some Phenergan for nausea and some pain medicine. I added famotidine to stomach acid reducing, Inapsine for nausea as the Phenergan had not really helped, and also phenobarbital 130 mg IV and Ativan 1 mg IV for withdrawal symptoms. She was shaky and tachycardic and describes some mild visual hallucinations. CIWA score is still pending. She does appear sick enough and I would anticipate much more significant withdrawal as well as the need for frequent sugar monitoring, I feel she will likely need the ICU. I did talk with the hospitalist Dr. Mayfield who will come see the patient and place her in the hospital. Disposition: Patient is admitted to the hospital in stable condition Diagnoses: 1. Nausea vomiting with dehydration 2. Alcoholic ketoacidosis 3. Alcohol use disorder 4. Alcohol withdrawal 5. Upper abdominal pain 6. Acute pancreatitis, alcoholic 7. Nicotine dependence
--- NOTE | 2024-01-27 09:09 | HISTORY & PHYSICAL EXAMINATION ---
History - Past Medical History Cardiovascular: reports: None Respiratory: reports: None Neuro: reports: None Endocrine/Autoimmune: reports: None GI: reports: None : reports: None HEENT: reports: Chronic hearing loss Psych: reports: Other Musculoskeletal: reports: None Derm: reports: None - Family & Social History Social History Notes: Nothing is available, she is somnolent after receiving sedatives and cannot answer Meds/Allgy - Home Medications Home Medications: Ambulatory Orders Medication Instructions Recorded Confirmed Famotidine [Pepcid] 20 mg PO BID 01/27/24 01/27/24 Sertraline HCl 150 mg PO DAILY 01/27/24 01/27/24 hydrOXYzine HCL [Hydroxyzine HCl] 25 mg PO PRN PRN 01/27/24 01/27/24 - Allergies Allergies/Adverse Reactions: Allergies Allergy/AdvReac Type Severity Reaction Status Date / Time No Known Drug Allergies Allergy Verified 01/27/24 06:43 Exam - Vital Signs Vital Signs: Vital Signs x48h Temp Pulse Resp BP Pulse Ox O2 Flow Rate 01/27/24 09:00 118 H 16 107/60 94 2 01/27/24 07:19 106 H 16 105/48 L 97 01/27/24 06:35 36.7 C 123 H 18 113/64 97 Conclusion/Plan - Lab Results Fish Bones: 01/27/24 06:40 01/27/24 06:40
[2024-01-27 09:32] LABS: ALBUMIN 4.1 g/dL (3.2-5.5); ALBUMIN/GLOBULIN RATIO 1.7 (1.0-2.2); BILIRUBIN,TOTAL 0.7 mg/dL (0.2-1.0); CALCIUM 7.7 mg/dL (8.5-10.3); CREATININE 0.9 mg/dL (0.6-1.3); POTASSIUM 3.8 mmol/L (3.5-4.5); TOTAL PROTEIN 6.5 g/dL (6.4-8.9)
[2024-01-27 09:54] LABS: B. PARAPERTUSSIS- RESP PCR PAN NOT DETECTED; B. PERTUSSIS- RESP PCR PANEL NOT DETECTED; C. PNEUMONIAE- RESP PCR PANEL NOT DETECTED; CORONAVIRUS 229E-RESP PCR NOT DETECTED; CORONAVIRUS HKU1-RESP PCR NOT DETECTED; CORONAVIRUS NL63-RESP PCR NOT DETECTED; CORONAVIRUS OC43-RESP PCR NOT DETECTED; HUMAN METAPNEUMOVIRUS NOT DETECTED; INFLUENZA A- RESP PCR PANEL NOT DETECTED; INFLUENZA B - RESP PCR PANEL NOT DETECTED; M. PNEUMONIAE- RESP PCR PANEL NOT DETECTED; PARAINFLUENZA VIRUS 1 NOT DETECTED; PARAINFLUENZA VIRUS 2 NOT DETECTED; PARAINFLUENZA VIRUS 3 NOT DETECTED; PARAINFLUENZA VIRUS 4 NOT DETECTED; RHINOVIRUS/ENTEROVIRUS NOT DETECTED; RSV- RESP PCR PANEL NOT DETECTED; SARS-CoV-2 -RESP PCR PANEL NOT DETECTED
[2024-01-27] MEDS: iohexoL-300 100 ML VIAL IVP ONE (10:03)
--- NOTE | 2024-01-27 10:05 | PHARMACY PROGRESS NOTE ---
- Best Possible Medication History Admit Date and Time: 01/27/24 0858 Processed by: Nursing Medications reviewed in ED?: Yes Medication History completed: Yes Patient Interview: Completed Secondary Source(s): Insurance records As the person ultimately responsible for medication therapy, providers are able to order a medication from an existing home medication list in [facility] via the "Reconcile Routine" prior to Confirmation of that medication by windows support engineer. Such practice is discouraged except when the physician, in their clinical judgment, deems that a medical need exists for a medication without regard to previous use.
[2024-01-27] MEDS ORDERED: SODIUM BICARBONATE 150 MEQ in DEXTROSE 5% 1,000 ML IV SCH (11:00)
[2024-01-27] MEDS: SODIUM BICARBONATE 150 MEQ in DEXTROSE 5% 1,000 ML IV SCH (11:06)
[2024-01-27] MEDS: MAGNESIUM SULFATE 2 GRAM 2 GM/50 ML BAG IV ONE (11:11)
[2024-01-27] MEDS: FAMOTIDINE 20 MG/2 ML VIAL IVP SCH (11:11)
[2024-01-27] MEDS: ENOXAPARIN 40 MG/0.4 ML SYRINGE SUBQ SCH (11:12)
[2024-01-27] MEDS: SODIUM CHLORIDE FLUSH 0.9% 10 ML SYRINGE IVP PRN (11:15)
[2024-01-27] MEDS: PRENATAL VITAMIN TABLET PO SCH (11:37)
[2024-01-27] MEDS: THIAMINE 100 MG TABLET PO SCH (11:37)
[2024-01-27] MEDS: SODIUM CHLORIDE FLUSH 0.9% 10 ML SYRINGE IVP SCH (11:38)
--- NOTE | 2024-01-27 11:40 | HISTORY & PHYSICAL EXAMINATION ---
Chief Complaint - Chief Complaint Chief Complaint: Abdominal pain History of Present Illness - Admitted From Admitted From:: ED - History Obtained From Records Reviewed: Yes History obtained from: EMR, RN Exam Limitations: Patient lethargic - History of Present Illness HPI Comment/Other: Patient is a 58-year-old female with a past medical history of alcohol abuse with previous withdrawals requiring inpatient care however no seizures who presented to the ED due to complaints of epigastric pain and nausea. Upon presentation patient had mildly elevated lipase. A CT abdomen/pelvis was performed which did not show any evidence of pancreatitis. She began withdrawing in the ED and was given Ativan and phenobarbital. During my evaluation patient was quite lethargic. Much of the history was obtained from the nursing staff. She had an alcohol level of 183 with an anion gap metabolic acidosis. Patient was admitted to the ICU for further management. History - Past Medical History Cardiovascular: reports: None Respiratory: reports: None Neuro: reports: None Endocrine/Autoimmune: reports: None GI: reports: Pancreatitis : reports: None HEENT: reports: Chronic hearing loss Psych: reports: Other Musculoskeletal: reports: None Derm: reports: None - Family & Social History Social History Notes: Nothing is available, she is somnolent after receiving sedatives and cannot answer - Substance History Use: Uses substance without health or social issues: Alcohol Use Issues: Intoxication Abuse: Recurrent use of substance despite neg consequences: Alcohol Abuse Issues: Intoxication Dependence: Experiences withdrawal or developed tolerances: Alcohol Dependence Issues: Intoxication Meds/Allgy - Home Medications Home Medications: Ambulatory Orders Medication Instructions Recorded Confirmed Famotidine [Pepcid] 20 mg PO BID 01/27/24 01/27/24 Sertraline HCl 150 mg PO DAILY 01/27/24 01/27/24 hydrOXYzine HCL [Hydroxyzine HCl] 25 mg PO PRN PRN 01/27/24 01/27/24 - Allergies Allergies/Adverse Reactions: Allergies Allergy/AdvReac Type Severity Reaction Status Date / Time No Known Drug Allergies Allergy Verified 01/27/24 06:43 Review of Systems - All Other Systems All Other Systems: reports: Reviewed and negative Prior Level of Functionality: Independent. Exam - Vital Signs Reviewed Vital Signs: Yes Vital Signs: Vital Signs x48h Temp Pulse Pulse Resp BP BP Pulse Ox 01/27/24 11:00 119 H 17 125/60 95 04/03/24 10:06 36.9 C 132 H 19 116/67 96 01/27/24 09:00 118 H 16 107/60 94 01/27/24 07:19 106 H 16 105/48 L 97 01/27/24 06:35 36.7 C 123 H 18 113/64 97 O2 Flow Rate 01/27/24 11:00 01/27/24 10:06 2 01/27/24 09:00 2 01/27/24 07:19 01/27/24 06:35 - Physical Exam General Appearance: positive: No acute distress, Lethargic Respiratory: positive: Chest non-tender, No respiratory distress, Breath sounds nml. negative: Wheezes Cardiovascular: positive: Regular rate & rhythm, No murmur, No gallop Abdomen: positive: Non-tender, No organomegaly, Nml bowel sounds, No distention Skin: positive: Color nml Extremities: positive: No pedal edema Conclusion/Plan - Problem List (1) Alcohol withdrawal Conclusion/Plan: --Admitted to the ICU for alcohol withdrawal. Will start her on CIWA with IV Ativan. --Social work consult for recurrent admissions for alcohol withdrawal. --Unclear how much she has been drinking and how much she drinks daily. Will address this when she wakes up. --Continue with thiamine and folate supplementation. Qualifiers: Complication of substance-induced condition: uncomplicated Qualified Code(s): F10.930 - Alcohol use, unspecified with withdrawal, uncomplicated (2) Alcoholic ketoacidosis Conclusion/Plan: --Appears to have an anion gap metabolic acidosis. Will start her on a bicarbonate infusion. Etiology is likely her alcoholic ketosis. She needs IV fluids. (3) Hypomagnesemia Conclusion/Plan: --Repleting magnesium. (4) Nicotine dependence Conclusion/Plan: --Nicotine replacement patch ordered. Qualifiers: Nicotine product type: cigarettes Substance use status: unspecified santi brad-induced disorder Qualified Code(s): F17.219 - Nicotine dependence, c igarettes, with unspecified nicotine-induced disorders (5) Pancreatitis, acute Conclusion/Plan: --CT scan does not show any evidence of acute pancreatitis. She does have a prior history of pancreatitis. Continue with IV fluids and symptom control. Mildly elevated lipase. Qualifiers: Pancreatitis type: alcohol induced Acute pancreatitis complication: no infection or necrosis Qualified Code(s): K85.20 - Alcohol induced acute pancreatitis without necrosis or infection - Lab Results Lab results reviewed: Yes Fish Bones: 01/27/24 06:40 01/27/24 09:12 - Diagnostic Imaging Results Diagnostic Imaging Results: positive: Final report reviewed
[2024-01-27] MEDS: POTASSIUM CHLOR 10 MEQ/100 ML 10 MEQ/100 ML BAG IV SCH (11:57)
[2024-01-27 13:27] LABS: CALCIUM, IONIZED 0.81 mmol/L (1.15-1.33); VBG PH 7.294 (7.31-7.41)
[2024-01-27 13:28] LABS: VBG HCO3 8.3 mmol/L (23-28); VBG PCO2 17.1 mmHg (41-51); VBG PH 7.294 (7.31-7.41)
[2024-01-27] MEDS: CALCIUM GLUCONATE IN NS 0.9% 2,000 MG/100 ML BAG IV ONE (14:40)
[2024-01-27] MEDS: ONDANSETRON 4 MG/2 ML VIAL IVP PRN (14:53)
[2024-01-27] MEDS: LORazepam 2 MG/ML VIAL IVP PRN (15:08)
[2024-01-27 15:48] LABS: MAGNESIUM 2.5 mg/dL (1.7-2.3); POTASSIUM 4.1 mmol/L (3.5-4.5)
[2024-01-27 17:33] LABS: CALCIUM, IONIZED 1.02 mmol/L (1.15-1.33); VBG PH 7.3 (7.31-7.41)
[2024-01-27] MEDS: CALCIUM GLUC 1,000MG/50ML-NACL 1,000 MG/50 ML BAG IV ONE ×2 (18:15→22:01)
[2024-01-27] MEDS: chlordiazePOXIDE 25 MG CAPSULE PO SCH (18:20)
[2024-01-27] MEDS: METOCLOPRAMIDE 10 MG/2 ML VIAL IVP PRN (20:14)
[2024-01-27] MEDS: IBUPROFEN 400 MG TABLET PO PRN (20:25)
[2024-01-27 21:24] LABS: CALCIUM, IONIZED 1.02 mmol/L (1.15-1.33); VBG PH 7.445 (7.31-7.41)
--- NOTE | 2024-01-28 00:01 | MISCELLANEOUS PROVIDER NOTE ---
Miscellaneous Provider Note - - Note: was notified that patient was having loose stools and was test for cdiff. cultures returned positive. -plan: started oral regimen of vancomycin and probiotics. -appropriate contact precautions suggested.
[2024-01-28] MEDS: VANCOMYCIN 125 MG CAPSULE PO SCH (00:24)
[2024-01-28 01:02] LABS: CALCIUM, IONIZED 1.05 mmol/L (1.15-1.33); VBG PH 7.531 (7.31-7.41)
[2024-01-28 04:48] LABS: BASOPHILS % (AUTO) 0.4 %; EOSINOPHILS % (AUTO) 0.2 %; HCT - HEMATOCRIT 33.6 % (37.0-47.0); HGB - HEMOGLOBIN 11.1 g/dL (12.0-16.0); LYMPHOCYTES # (AUTO) 0.9 10^3/uL (1.5-3.5); LYMPHOCYTES % (AUTO) 17.6 %; MEAN CORPUSCULAR VOLUME 87.7 fL (81.0-99.0); MEAN PLATELET VOLUME 9.6 fL (7.9-10.8); MONOCYTES # (AUTO) 1.1 10^3/uL (0.0-1.0); MONOCYTES % (AUTO) 20.5 %; NEUTROPHILS # (AUTO) 3.1 10^3/uL (1.5-6.6); NEUTROPHILS % (AUTO) 60.9 %; PLT - PLATELET COUNT 68 10^3/uL (130-450); RED BLOOD COUNT 3.83 10^6/uL (4.20-5.40); RED CELL DISTRIBUTION WIDTH 15.8 % (12.0-15.0); WHITE BLOOD COUNT 5.1 x10^3/uL (4.8-10.8)
[2024-01-28 04:49] LABS: CALCIUM, IONIZED 1.04 mmol/L (1.15-1.33); VBG PH 7.54 (7.31-7.41)
[2024-01-28 05:10] LABS: BUN - BLOOD UREA NITROGEN 11 mg/dL (6-20); CALCIUM 8.9 mg/dL (8.5-10.3); CARBON DIOXIDE - CO2 33 mmol/L (21-32); CHLORIDE 94 mmol/L (101-111); CREATININE 0.5 mg/dL (0.6-1.3); GFR - MDRD 126 (>89); GLUCOSE 173 mg/dL (74-104); POTASSIUM 3.2 mmol/L (3.5-4.5); SODIUM 134 mmol/L (135-145)
[2024-01-28 05:11] LABS: ALBUMIN 3.7 g/dL (3.2-5.5); BILIRUBIN,DIRECT 0.2 mg/dL (0.03-0.18); BILIRUBIN,TOTAL 0.9 mg/dL (0.2-1.0); MAGNESIUM 1.8 mg/dL (1.7-2.3); TOTAL PROTEIN 6.5 g/dL (6.4-8.9)
[2024-01-28 05:19] LABS: PHOSPHORUS < 1.0 mg/dL (2.5-5.0)
[2024-01-28] MEDS: CALCIUM GLUC 1,000MG/50ML-NACL 1,000 MG/50 ML BAG IV ONE (06:26)
[2024-01-28] MEDS ORDERED: POTASSIUM PHOSPHATE 21 MMOL in SODIUM CHLORIDE 0.9% 250 ML IV ONE (07:28)
[2024-01-28] MEDS: POTASSIUM PHOSPHATE 15 MMOL in SODIUM CHLORIDE 0.9% 250 ML IV SCH (08:25)
--- NOTE | 2024-01-28 11:49 | PROVIDER PROGRESS NOTE ---
Assessment/Plan - Problem List (1) Alcohol withdrawal Qualifiers: Complication of substance-induced condition: uncomplicated Qualified Code(s): F10.930 - Alcohol use, unspecified with withdrawal, uncomplicated Assessment/Plan: (1) Alcohol withdrawal Conclusion/Plan: --Admitted to the ICU for alcohol withdrawal. Will start her on CIWA with IV Ativan. --Social work consult for recurrent admissions for alcohol withdrawal. --Drinks 1 pint over 2 days. --Continue with thiamine and folate supplementation. Qualifiers: Complication of substance-induced condition: uncomplicated Qualified Code(s): F10.930 - Alcohol use, unspecified with withdrawal, uncomplicated (2) Alcoholic ketoacidosis Conclusion/Plan: --Resolved. (3) Hypomagnesemia Conclusion/Plan: --Repleting magnesium. (4) Nicotine dependence Conclusion/Plan: --Nicotine replacement patch ordered. Qualifiers: Nicotine product type: cigarettes Substance use status: unspecified nicotine-induced disorder Qualified Code(s): F17.219 - Nicotine dependence, cigarettes, with unspecified nicotine-induced disorders (5) Pancreatitis, acute Conclusion/Plan: --CT scan does not show any evidence of acute pancreatitis. She does have a prior history of pancreatitis. Continue with IV fluids and symptom control. Mildly elevated lipase. Qualifiers: Pancreatitis type: alcohol induced Acute pancreatitis complication: no infection or necrosis Qualified Code(s): K85.20 - Alcohol induced acute pancreatitis without necrosis or infection (4) Nicotine dependence Qualifiers: Nicotine product type: cigarettes Substance use status: unspecified nicotine-induced disorder Qualified Code(s): F17.219 - Nicotine dependence, cigarettes, with unspecified nicotine-induced disorders (5) Pancreatitis, acute Qualifiers: Pancreatitis type: alcohol induced Acute pancreatitis complication: no infection or necrosis Qualified Code(s): K85.20 - Alcohol induced acute pancreatitis without necrosis or infection (6) C. difficile diarrhea Assessment/Plan: --Started on oral Vancomycin. She was gene positive with diarrhea. - Current Meds Current Meds: Current Medications Generic Name Dose Route Start Last Admin Trade Name Freq PRN Reason Stop Dose Admin Chlordiazepoxide HCl 25 mg 01/27/24 18:00 01/28/24 06:30 Chlordiazepoxide 25 Mg Capsule PO 25 mg Q6HR YOUSIF Administration Enoxaparin Sodium 40 mg 01/27/24 09:00 01/28/24 08:51 Enoxaparin 40 Mg/0.4 Ml Syringe SUBQ Not Given DAILY YOUSIF Famotidine 20 mg 01/27/24 09:00 01/28/24 08:26 Famotidine 20 Mg/2 Ml Vial IVP 20 mg BID YOUSIF Administration Potassium Phosphate 15 mmol/ 255 mls @ 63 mls/hr 01/28/24 07:00 01/28/24 08:25 Sodium Chloride IV 01/28/24 14:59 63 mls/hr Q4H YOUSIF Administration Protocol Ibuprofen 400 mg 01/27/24 08:58 01/27/24 20:25 Ibuprofen 400 Mg Tablet PO 400 mg Q4HR PRN Administration Pain 1 to 4 Lorazepam 2 - 20 mg 01/27/24 08:58 01/27/24 20:37 Lorazepam 2 Mg/Ml Vial IVP 2 mg Q15M PRN Administration RASS > 0 Protocol Metoclopramide HCl 5 mg 01/27/24 15:07 01/27/24 20:14 Metoclopramide 10 Mg/2 Ml Vial IVP 5 mg Q6HR PRN Administration Nausea / Vomiting Ondansetron HCl 4 mg 01/27/24 08:58 01/28/24 06:33 Ondansetron 4 Mg/2 Ml Vial IVP 4 mg Q6HR PRN Administration Nausea / Vomiting Multivit/Folic Acid/Iron 1 tab 01/27/24 09:00 01/28/24 08:25 Vitamin Tablet PO 1 tab DAILY YOUSIF Administration Sodium Chloride 10 ml 01/27/24 09:00 01/28/24 08:53 Sodium Chloride Flush 0.9% 10 Ml Syringe IVP 10 ml 0100,0900,1700 YOUSIF Administration Sodium Chloride 10 ml 01/27/24 08:58 01/27/24 15:16 Sodium Chloride Flush 0.9% 10 Ml Syringe IVP 20 ml PRN PRN Administration NEEDED PER PROVIDER ORDERS Thiamine HCl 100 mg 01/27/24 09:00 01/28/24 08:25 Thiamine 100 Mg Tablet PO 100 mg DAILY YOUSIF Administration Vancomycin HCl 125 mg 01/27/24 23:45 01/28/24 08:26 Vancomycin 125 Mg Capsule PO 125 mg QID YOUSIF Administration - Lab Result Fish Bone Diagrams: 01/28/24 04:39 01/28/24 04:39 - Additional Planning My Orders: My Active Orders 01/27/24 15:07 Metoclopramide Inj [Reglan Inj] 5 mg IVP Q6HR PRN 01/27/24 18:00 chlordiazePOXIDE [Librium] 25 mg PO Q6HR 01/27/24 19:16 CIWA - AR Score Card [RC] Q4HR 01/28/24 Breakfast Dysphagia - Puree [DIET] 01/28/24 07:00 Potassium Phosphate 15 mmol Sodium Chloride 0.9% [Normal Saline 0.9%] 250 ml IV Q4H 01/28/24 12:00 Nicotine 14 mg Patch [Nicoderm] 1 patch TOP DAILY 01/29/24 05:00 BMP - BASIC METABOLIC PANEL [CHEM] DAILYLAB CBC [CBC - COMP BLD CT W/AUTO DIFF] [HEME] DAILYLAB 01/29/24 09:00 LIVER PANEL [CHEM] DAILY MAGNESIUM [CHEM] DAILY 01/30/24 05:00 BMP - BASIC METABOLIC PANEL [CHEM] DAILYLAB CBC [CBC - COMP BLD CT W/AUTO DIFF] [HEME] DAILYLAB 01/30/24 09:00 LIVER PANEL [CHEM] DAILY MAGNESIUM [CHEM] DAILY 01/31/24 05:00 BMP - BASIC METABOLIC PANEL [CHEM] DAILYLAB CBC [CBC - COMP BLD CT W/AUTO DIFF] [HEME] DAILYLAB 01/31/24 09:00 LIVER PANEL [CHEM] DAILY MAGNESIUM [CHEM] DAILY 02/01/24 05:00 BMP - BASIC METABOLIC PANEL [CHEM] DAILYLAB CBC [CBC - COMP BLD CT W/AUTO DIFF] [HEME] DAILYLAB 02/01/24 09:00 LIVER PANEL [CHEM] DAILY MAGNESIUM [CHEM] DAILY 02/02/24 05:00 BMP - BASIC METABOLIC PANEL [CHEM] DAILYLAB CBC [CBC - COMP BLD CT W/AUTO DIFF] [HEME] DAILYLAB Subjective - Subjective Patient Reports: Feeling Better, Resting Comfortably, No Complaints Objective Vital Signs: Vital Signs - 24 hr 01/27/24 01/27/24 01/27/24 12:00 13:00 14:00 Temperature 37 C Heart Rate [ 122 H 111 H 122 H Monitoring electrodes] Respiratory 20 18 17 Rate Blood Pressure 126/62 119/52 L 110/66 [Right Brachial artery] O2 Saturation 95 95 93 If not protocol 2 1 1 : Oxygen Flow, liters/minute 0401/27/24 01/27/24 14:35 15:00 15:20 Temperature 37.0 C Heart Rate [ 113 H Monitoring electrodes] Respiratory 20 18 Rate Blood Pressure 144/67 H [Right Brachial artery] O2 Saturation 92 91 L If not protocol 1 1 : Oxygen Flow, liters/minute 01/27/24 01/27/24 01/27/24 15:34 16:00 17:00 Temperature Heart Rate [ 114 H 118 H 124 H Monitoring electrodes] Respiratory 17 17 17 Rate Blood Pressure 129/64 136/75 H [Right Brachial artery] O2 Saturation 95 92 97 If not protocol 2 2 2 : Oxygen Flow, liters/minute 01/27/24 01/27/24 01/27/24 18:00 19:00 20:00 Temperature 38.1 C H Heart Rate [ 107 H 103 H 105 H Monitoring electrodes] Respiratory 19 21 22 Rate Blood Pressure 122/62 123/63 128/64 [Right Brachial artery] O2 Saturation 94 96 97 If not protocol 2 1 2 : Oxygen Flow, liters/minute 01/27/24 01/27/24 01/27/24 21:00 22:00 23:00 Temperature 37.4 C Heart Rate [ 112 H 106 H 101 H Monitoring electrodes] Respiratory 24 20 21 Rate Blood Pressure 124/62 103/65 106/66 [Right Brachial artery] O2 Saturation 94 96 100 If not protocol 2 2 2 : Oxygen Flow, liters/minute 01/28/24 01/28/24 01/28/24 00:00 01:00 02:00 Temperature Heart Rate [ 108 H 113 H 107 H Monitoring electrodes] Respiratory 19 23 23 Rate Blood Pressure 103/58 L 124/63 126/70 [Right Brachial artery] O2 Saturation 95 92 96 If not protocol 2 2 2 : Oxygen Flow, liters/minute 01/28/24 01/28/24 01/28/24 03:00 04:00 05:00 Temperature Heart Rate [ 110 H 104 H 107 H Monitoring electrodes] Respiratory 21 22 21 Rate Blood Pressure 126/61 121/65 122/66 [Right Brachial artery] O2 Saturation 92 95 95 If not protocol 2 2 2 : Oxygen Flow, liters/minute 01/28/24 01/28/24 01/28/24 06:00 07:00 07:58 Temperature 36.7 C Heart Rate [ 100 100 108 H Monitoring electrodes] Respiratory 22 23 13 Rate Blood Pressure 123/66 118/64 134/75 H [Right Brachial artery] O2 Saturation 94 94 94 If not protocol 2 2 2 : Oxygen Flow, liters/minute 01/28/24 01/28/24 01/28/24 09:00 10:00 11:00 Temperature Heart Rate [ 100 100 99 Monitoring electrodes] Respiratory 19 20 17 Rate Blood Pressure 123/70 123/81 H 124/78 [Right Brachial artery] O2 Saturation 94 99 92 If not protocol 2 2 1 : Oxygen Flow, liters/minute Oxygen O2 Source Nasal cannula Oxygen Flow Rate 2 I&O (Last 24 Hrs): Intake and Output Totals x24h 01/26/24 01/27/24 01/28/24 23:59 23:59 23:59 Intake Total 6081.2 1442.5 Output Total 1550 500 Balance 4531.2 942.5 General: Alert, Oriented x3, Cooperative, No acute distress Cardiovascular: Regular rate, Normal S1, Normal S2, No murmurs Respiratory: Chest non-tender, No respiratory distress, Breath sounds nml Abdomen: Normal bowel sounds, Soft, No tenderness, No hepatospenomegaly, No masses - Results Results: Laboratory Results WBC 5.1 x10^3/uL (4.8-10.8) 01/28/24 04:39 RBC 3.83 10^6/uL (4.20-5.40) L 01/28/24 04:39 Hgb 11.1 g/dL (12.0-16.0) L 01/28/24 04:39 Hct 33.6 % (37.0-47.0) L 01/28/24 04:39 MCV 87.7 fL (81.0-99.0) 01/28/24 04:39 MCH 29.0 pg (27.0-31.0) 01/28/24 04:39 MCHC 33.0 g/dL (32.0-36.0) 01/28/24 04:39 RDW 15.8 % (12.0-15.0) H 01/28/24 04:39 Plt Count 68 10^3/uL (130-450) L 01/28/24 04:39 MPV 9.6 fL (7.9-10.8) 01/28/24 04:39 Neut # (Auto) 3.1 10^3/uL (1.5-6.6) 01/28/24 04:39 Lymph # (Auto) 0.9 10^3/uL (1.5-3.5) L 01/28/24 04:39 [place] # (Auto) 1.1 10^3/uL (0.0-1.0) H 01/28/24 04:39 Eos # (Auto) 0.0 10^3/uL (0.0-0.7) 01/28/24 04:39 Baso # (Auto) 0.0 10^3/uL (0.0-0.1) 01/28/24 04:39 Absolute Nucleated RBC 0.00 x10^3/uL 01/28/24 04:39 Nucleated RBC % 0.0 /100WBC 01/28/24 04:39 VBG pH 7.540 (7.31-7.41) H 01/28/24 04:39 VBG pCO2 17.1 mmHg (41-51) L 01/27/24 13:14 VBG pO2 205.0 mmHg (25-47) H 01/27/24 13:14 VBG HCO3 8.3 mmol/L (23-28) L 01/27/24 13:14 VBG Total CO2 9.0 mmol/L (24-29) L 01/27/24 13:14 VBG O2 Saturation 100.0 % (60-80) H 01/27/24 13:14 VBG Base Excess -18.0 mmol/L (-2 - +2) L 01/27/24 13:14 Ionized Calcium 1.04 mmol/L (1.15-1.33) L 01/28/24 04:39 Sodium 134 mmol/L (135-145) L 01/28/24 04:39 Potassium 3.2 mmol/L (3.5-4.5) L 01/28/24 04:39 Chloride 94 mmol/L (101-111) L 01/28/24 04:39 Carbon Dioxide 33 mmol/L (21-32) H 01/28/24 04:39 Anion Gap 7.0 (6-13) 01/28/24 04:39 BUN 11 mg/dL (6-20) 01/28/24 04:39 Creatinine 0.5 mg/dL (0.6-1.3) L 01/28/24 04:39 Estimated GFR (MDRD) 126 (>89) 01/28/24 04:39 Glucose 173 mg/dL (74-104) H 01/28/24 04:39 Lactic Acid 1.8 mmol/L (0.5-2.2) 01/27/24 15:23 Calcium 8.9 mg/dL (8.5-10.3) 01/28/24 04:39 Phosphorus < 1.0 mg/dL (2.5-5.0) L* 01/28/24 04:39 Magnesium 1.8 mg/dL (1.7-2.3) 01/28/24 04:39 Total Bilirubin 0.9 mg/dL (0.2-1.0) 01/28/24 04:39 Direct Bilirubin 0.20 mg/dL (0.03-0.18) H 01/28/24 04:39 AST 107 IU/L (10-42) H 01/28/24 04:39 ALT 58 IU/L (10-60) 01/28/24 04:39 Alkaline Phosphatase 49 IU/L (42-121) 01/28/24 04:39 Total Protein 6.5 g/dL (6.4-8.9) 01/28/24 04:39 Albumin 3.7 g/dL (3.2-5.5) 01/28/24 04:39 Globulin 2.8 g/dL (2.1-4.2) 01/28/24 04:39 Albumin/Globulin Ratio 1.7 (1.0-2.2) 01/27/24 09:12 Lipase 115 U/L (11-82) H 01/27/24 06:40 Urine Color DARK YELLOW 01/27/24 08:05 Urine Clarity CLEAR (CLEAR) 01/27/24 08:05 Urine pH 5.5 PH (5.0-7.5) 01/27/24 08:05 Ur Specific [place] >=1.030 (1.002-1.030) H 01/27/24 08:05 Urine Protein 100 mg/dL (NEGATIVE) H 01/27/24 08:05 Urine Glucose (UA) NEGATIVE mg/dL (NEGATIVE) 01/27/24 08:05 Urine Ketones 15 mg/dL (NEGATIVE) H 01/27/24 08:05 Urine Occult Blood SMALL (NEGATIVE) H 01/27/24 08:05 Urine Nitrite NEGATIVE (NEGATIVE) 01/27/24 08:05 Urine Bilirubin MODERATE (NEGATIVE) H 01/27/24 08:05 Urine Urobilinogen 1 (NORMAL) E.U./dL (NORMAL) 01/27/24 08:05 Ur Leukocyte Esterase NEGATIVE (NEGATIVE) 01/27/24 08:05 Urine RBC 0-5 /HPF (0-5) 01/27/24 08:05 Urine WBC 4-5 /HPF (0-5) 01/27/24 08:05 Ur Squamous Epith Cells FEW Squamous (<= Few) 01/27/24 08:05 Urine Bacteria Moderate /HPF (None Seen) H 01/27/24 08:05 Urine Casts 0-2 Course Granular /LPF0-2 Fine Granular /LPF 01/27/24 08:05 Urine Casts 0-2 Course Granular /LPF0-2 Fine Granular /LPF 01/27/24 08:05 Ur Microscopic Review INDICATED 01/27/24 08:05 Urine Culture Comments NOT INDICATED 01/27/24 08:05 Nasal Adenovirus (PCR) NOT DETECTED 01/27/24 08:51 Nasal B. parapertussis DNA (PCR) NOT DETECTED 01/27/24 08:51 Nasal Coronavir 229E PCR NOT DETECTED 01/27/24 08:51 Nasal Coronavir HKU1 PCR NOT DETECTED 01/27/24 08:51 Nasal Coronavir NL63 PCR NOT DETECTED 01/27/24 08:51 Nasal Coronavir OC43 PCR NOT DETECTED 01/27/24 08:51 Nasal Enterovir/Rhinovir PCR NOT DETECTED 01/27/24 08:51 Nasal Influenza B PCR NOT DETECTED 01/27/24 08:51 Nasal Influenza A PCR NOT DETECTED 01/27/24 08:51 Nasal Parainfluen 1 PCR NOT DETECTED 01/27/24 08:51 Nasal Parainfluen 2 PCR NOT DETECTED 01/27/24 08:51 Nasal Parainfluen 3 PCR NOT DETECTED 01/27/24 08:51 Nasal Parainfluen 4 PCR NOT DETECTED 01/27/24 08:51 Nasal RSV (PCR) NOT DETECTED 01/27/24 08:51 Nasal Screen MRSA (PCR) NEGATIVE (NEGATIVE) 01/27/24 10:00 Nasal B.pertussis DNA PCR NOT DETECTED 01/27/24 08:51 Nasal C.pneumoniae (PCR) NOT DETECTED 01/27/24 08:51 John Human Metapneumo PCR NOT DETECTED 01/27/24 08:51 Nasal M.pneumoniae (PCR) NOT DETECTED 01/27/24 08:51 Nasal SARS-CoV-2 (PCR) NOT DETECTED 01/27/24 08:51 Stl C. diff Tox B Gene POSITIVE (NEGATIVE) A* 01/27/24 21:30 Ethyl Alcohol 183.0 mg/dL 01/27/24 06:40 Serum Ketones SMALL (NEGATIVE) H 01/27/24 06:40
[2024-01-28] MEDS: LACTOBACILLUS RHAMNOSUS GG CAPSULE PO SCH (12:20)
[2024-01-28] MEDS: NICOTINE 14 MG PATCH TOP SCH (12:38)
[2024-01-28 18:48] LABS: CALCIUM, IONIZED 1.11 mmol/L (1.15-1.33); VBG PH 7.512 (7.31-7.41)
[2024-01-28] MEDS: CALCIUM CARBONATE CHEW 500 MG TABLET PO SCH ×2 (19:01→21:52)
[2024-01-28 19:10] LABS: PHOSPHORUS 1.4 mg/dL (2.5-5.0)
[2024-01-28] MEDS: FAMOTIDINE 20 MG TABLET PO SCH (22:04)
[2024-01-28] MEDS: NEUTRA-PHOS 250 MG TABLET PO ONE (23:31)
[2024-01-28] MEDS: POTASSIUM CHLORIDE 20 MEQ TABLET PO SCH (23:31)
[2024-01-29 04:42] LABS: BASOPHILS % (AUTO) 0.4 %; EOSINOPHILS # (AUTO) 0.1 10^3/uL (0.0-0.7); EOSINOPHILS % (AUTO) 2.2 %; HCT - HEMATOCRIT 34.1 % (37.0-47.0); HGB - HEMOGLOBIN 11.6 g/dL (12.0-16.0); LYMPHOCYTES # (AUTO) 1.4 10^3/uL (1.5-3.5); LYMPHOCYTES % (AUTO) 29.8 %; MEAN CORPUSCULAR HEMOGLOBIN 29.7 pg (27.0-31.0); MEAN CORPUSCULAR VOLUME 87.2 fL (81.0-99.0); MEAN PLATELET VOLUME 9.5 fL (7.9-10.8); MONOCYTES # (AUTO) 0.6 10^3/uL (0.0-1.0); MONOCYTES % (AUTO) 12.6 %; NEUTROPHILS # (AUTO) 2.5 10^3/uL (1.5-6.6); NEUTROPHILS % (AUTO) 54.8 %; PLT - PLATELET COUNT 59 10^3/uL (130-450); RED BLOOD COUNT 3.91 10^6/uL (4.20-5.40); RED CELL DISTRIBUTION WIDTH 15.8 % (12.0-15.0); WHITE BLOOD COUNT 4.5 x10^3/uL (4.8-10.8)
[2024-01-29 04:43] LABS: CALCIUM, IONIZED 1.18 mmol/L (1.15-1.33); VBG PH 7.551 (7.31-7.41)
[2024-01-29 05:03] LABS: CALCIUM 10.4 mg/dL (8.5-10.3); CREATININE 0.3 mg/dL (0.6-1.3); POTASSIUM 3.1 mmol/L (3.5-4.5)
[2024-01-29 05:20] LABS: ALBUMIN 3.6 g/dL (3.2-5.5); BILIRUBIN,DIRECT 0.17 mg/dL (0.03-0.18); BILIRUBIN,TOTAL 0.8 mg/dL (0.2-1.0); MAGNESIUM 1.3 mg/dL (1.7-2.3); TOTAL PROTEIN 6.7 g/dL (6.4-8.9)
[2024-01-29] MEDS: NEUTRA-PHOS 250 MG TABLET PO SCH (05:48)
[2024-01-29] MEDS: MAGNESIUM SULFATE 2 GRAM 2 GM/50 ML BAG IV SCH (05:56)
[2024-01-29] MEDS ORDERED: POTASSIUM CHLORIDE 20 MEQ TABLET PO SCH (06:00)
[2024-01-29] MEDS ORDERED: SACCHAROMYCES BOULARDII 250 MG CAPSULE PO SCH (08:00)
[2024-01-29] MEDS: SACCHAROMYCES BOULARDII 250 MG CAPSULE PO SCH (08:02)
--- NOTE | 2024-01-29 11:49 | PROVIDER PROGRESS NOTE ---
Assessment/Plan - Problem List (1) Alcohol withdrawal Qualifiers: Complication of substance-induced condition: uncomplicated Qualified Code(s): F10.930 - Alcohol use, unspecified with withdrawal, uncomplicated Assessment/Plan: (1) Alcohol withdrawal Qualifiers: Complication of substance-induced condition: uncomplicated Qualified Code(s): F10.930 - Alcohol use, unspecified with withdrawal, uncomplicated Assessment/Plan: (1) Alcohol withdrawal Conclusion/Plan: --Admitted to the ICU for alcohol withdrawal. Will start her on CIWA with IV Ativan. Tapered her Librium to TID. --Social work consult for recurrent admissions for alcohol withdrawal. --Drinks 1 pint over 2 days. --Continue with thiamine and folate supplementation. Qualifiers: Complication of substance-induced condition: uncomplicated Qualified Code(s): F10.930 - Alcohol use, unspecified with withdrawal, uncomplicated (2) Alcoholic ketoacidosis Conclusion/Plan: --Resolved. (3) Hypomagnesemia Conclusion/Plan: --Repleting magnesium. (4) Nicotine dependence Conclusion/Plan: --Nicotine replacement patch ordered. Qualifiers: Nicotine product type: cigarettes Substance use status: unspecified nicotine-induced disorder Qualified Code(s): F17.219 - Nicotine dependence, cigarettes, with unspecified nicotine-induced disorders (5) Pancreatitis, acute Conclusion/Plan: --Resolved. She is eating. Qualifiers: Pancreatitis type: alcohol induced Acute pancreatitis complication: no infection or necrosis Qualified Code(s): K85.20 - Alcohol induced acute pancreatitis without necrosis or infection (6) C. difficile diarrhea Assessment/Plan: --Started on oral Vancomycin. She was gene and toxin positive with diarrhea. Dispo: Continue to treat in the ICU due to multiple electrolyte derangements. (4) Nicotine dependence Qualifiers: Nicotine product type: cigarettes Substance use status: unspecified nicotine-induced disorder Qualified Code(s): F17.219 - Nicotine dependence, cigarettes, with unspecified nicotine-induced disorders (5) Pancreatitis, acute Qualifiers: Pancreatitis type: alcohol induced Acute pancreatitis complication: no infection or necrosis Qualified Code(s): K85.20 - Alcohol induced acute pancreatitis without necrosis or infection - Current Meds Current Meds: Current Medications Generic Name Dose Route Start Last Admin Trade Name Freq PRN Reason Stop Dose Admin Calcium Carbonate/Glycine 500 mg 01/28/24 21:00 01/29/24 08:02 Calcium Carbonate Chew 500 Mg Tablet PO 500 mg BID YOUSIF Administration Enoxaparin Sodium 40 mg 01/27/24 09:00 01/29/24 08:35 Enoxaparin 40 Mg/0.4 Ml Syringe SUBQ Not Given DAILY YOUSIF Famotidine 20 mg 01/28/24 21:00 01/29/24 08:02 Famotidine 20 Mg Tablet PO 20 mg BID YOUSIF Administration Ibuprofen 400 mg 01/27/24 08:58 01/28/24 16:14 Ibuprofen 400 Mg Tablet PO 400 mg Q4HR PRN Administration Pain 1 to 4 Lorazepam 2 - 20 mg 01/27/24 08:58 01/27/24 20:37 Lorazepam 2 Mg/Ml Vial IVP 2 mg Q15M PRN Administration RASS > 0 Protocol Metoclopramide HCl 5 mg 01/27/24 15:07 01/27/24 20:14 Metoclopramide 10 Mg/2 Ml Vial IVP 5 mg Q6HR PRN Administration Nausea / Vomiting Nicotine 1 patch 01/28/24 12:00 01/29/24 08:03 Nicotine 14 Mg Patch TOP 1 patch DAILY YOUSIF Administration Ondansetron HCl 4 mg 01/27/24 08:58 01/28/24 12:39 Ondansetron 4 Mg/2 Ml Vial IVP 4 mg Q6HR PRN Administration Nausea / Vomiting Multivit/Folic Acid/Iron 1 tab 01/27/24 09:00 01/29/24 08:02 Vitamin Tablet PO 1 tab DAILY YOUSIF Administration Saccharomyces Boulardii 500 mg 01/29/24 08:00 01/29/24 08:02 Saccharomyces Boulardii 250 Mg Capsule PO 500 mg BIDWM YOUSIF Administration Sodium Chloride 10 ml 01/27/24 09:00 01/29/24 08:03 Sodium Chloride Flush 0.9% 10 Ml Syringe IVP 10 ml 0100,[id number],1700 YOUSIF Administration Sodium Chloride 10 ml 01/27/24 08:58 01/28/24 12:22 Sodium Chloride Flush 0.9% 10 Ml Syringe IVP 10 ml PRN PRN Administration NEEDED PER PROVIDER ORDERS Thiamine HCl 100 mg 01/27/24 09:00 01/29/24 08:02 Thiamine 100 Mg Tablet PO 100 mg DAILY YOUSIF Administration Vancomycin HCl 125 mg 01/27/24 23:45 01/29/24 08:02 Vancomycin 125 Mg Capsule PO 125 mg QID YOUSIF Administration - Lab Result Fish Bone Diagrams: 01/29/24 04:32 01/29/24 04:32 - Additional Planning My Orders: My Active Orders 01/28/24 12:00 Nicotine 14 mg Patch [Nicoderm] 1 patch TOP DAILY 01/28/24 Dinner Regular Diet [DIET] 01/28/24 21:00 Calcium Carbonate [Tums] 500 mg PO BID Famotidine [Pepcid] 20 mg PO BID 01/29/24 08:00 Saccharomyces Boulardii [Florastor] 500 mg PO BIDWM 01/29/24 12:00 MAGNESIUM [CHEM] Timed POTASSIUM [CHEM] Timed 01/29/24 14:00 chlordiazePOXIDE [Librium] 25 mg PO TID 01/30/24 05:00 BMP - BASIC METABOLIC PANEL [CHEM] DAILYLAB CBC [CBC - COMP BLD CT W/AUTO DIFF] [HEME] DAILYLAB PHOSPHORUS [CHEM] DAILYLAB 01/30/24 09:00 LIVER PANEL [CHEM] DAILY MAGNESIUM [CHEM] DAILY 01/31/24 05:00 BMP - BASIC METABOLIC PANEL [CHEM] DAILYLAB CBC [CBC - COMP BLD CT W/AUTO DIFF] [HEME] DAILYLAB 01/31/24 09:00 LIVER PANEL [CHEM] DAILY MAGNESIUM [CHEM] DAILY 02/01/24 05:00 BMP - BASIC METABOLIC PANEL [CHEM] DAILYLAB CBC [CBC - COMP BLD CT W/AUTO DIFF] [HEME] DAILYLAB 02/01/24 09:00 LIVER PANEL [CHEM] DAILY MAGNESIUM [CHEM] DAILY 02/02/24 05:00 BMP - BASIC METABOLIC PANEL [CHEM] DAILYLAB CBC [CBC - COMP BLD CT W/AUTO DIFF] [HEME] DAILYLAB Subjective - Subjective Patient Reports: Diarrhea Objective Vital Signs: Vital Signs - 24 hr 01/28/24 01/28/24 01/28/24 12:00 13:00 14:00 Temperature 36.8 C 36.9 C Heart Rate [ 103 H 96 97 Monitoring electrodes] Respiratory 26 H 16 24 Rate Blood Pressure 115/70 132/76 H 124/75 [Right Brachial artery] O2 Saturation 100 93 92 If not protocol 1 1 1 : Oxygen Flow, liters/minute 01/28/24 01/28/24 01/28/24 15:00 16:00 17:00 Temperature 37.0 C Heart Rate [ 102 H 90 107 H Monitoring electrodes] Respiratory 26 H 22 19 Rate Blood Pressure 114/74 126/67 124/73 [Right Brachial artery] O2 Saturation 96 94 97 If not protocol 1 1 1 : Oxygen Flow, liters/minute 01/28/24 01/28/24 01/28/24 18:05 19:00 20:00 Temperature Heart Rate [ 107 H 89 83 Monitoring electrodes] Respiratory 18 19 19 Rate Blood Pressure 134/81 H 129/72 123/74 [Right Brachial artery] O2 Saturation 95 94 92 If not protocol 1 1 1 : Oxygen Flow, liters/minute 01/28/24 01/28/24 01/28/24 21:00 22:00 22:40 Temperature 36.7 C Heart Rate [ 84 84 Monitoring electrodes] Respiratory 21 19 Rate Blood Pressure 136/80 H 133/87 H [Right Brachial artery] O2 Saturation 94 92 If not protocol 1 1 1 : Oxygen Flow, liters/minute 01/28/24 01/29/24 01/29/24 23:00 00:00 02:00 Temperature Heart Rate [ 78 92 83 Monitoring electrodes] Respiratory 20 22 20 Rate Blood Pressure 143/75 H 135/80 H 126/77 [Right Brachial artery] O2 Saturation 93 92 92 If not protocol 1 1 1 : Oxygen Flow, liters/minute 01/29/24 01/29/24 01/29/24 04:00 05:58 08:00 Temperature 98.2 C H 36.4 C L Heart Rate [ 93 91 104 H Monitoring electrodes] Respiratory 19 20 22 Rate Blood Pressure 135/80 H 139/86 H 119/99 H [Right Brachial artery] O2 Saturation 92 92 91 L If not protocol 1 1 1 : Oxygen Flow, liters/minute 01/29/24 01/29/24 01/29/24 09:00 10:00 11:00 Temperature 36.7 C Heart Rate [ 90 103 H Monitoring electrodes] Respiratory 20 19 Rate Blood Pressure 109/71 128/93 H [Right Brachial artery] O2 Saturation 96 91 L If not protocol 2 2 2 : Oxygen Flow, liters/minute Oxygen O2 Source Nasal cannula Oxygen Flow Rate 2 I&O (Last 24 Hrs): Intake and Output Totals x24h 01/27/24 01/28/24 01/29/24 23:59 23:59 23:59 Intake Total 6081.2 2572.5 142.5 Output Total 1550 500 0 Balance 4531.2 2072.5 142.5 General: Alert, Oriented x3, Cooperative, No acute distress Cardiovascular: Regular rate, Normal S1, Normal S2, No murmurs Respiratory: Chest non-tender, No respiratory distress, Breath sounds nml Abdomen: Normal bowel sounds, Soft, No tenderness, No hepatospenomegaly, No masses - Results Results: Laboratory Results WBC 4.5 x10^3/uL (4.8-10.8) L 01/29/24 04:32 RBC 3.91 10^6/uL (4.20-5.40) L 01/29/24 04:32 Hgb 11.6 g/dL (12.0-16.0) L 01/29/24 04:32 Hct 34.1 % (37.0-47.0) L 01/29/24 04:32 MCV 87.2 fL (81.0-99.0) 01/29/24 04:32 MCH 29.7 pg (27.0-31.0) 01/29/24 04:32 MCHC 34.0 g/dL (32.0-36.0) 01/29/24 04:32 RDW 15.8 % (12.0-15.0) H 01/29/24 04:32 Plt Count 59 10^3/uL (130-450) L 01/29/24 04:32 MPV 9.5 fL (7.9-10.8) 01/29/24 04:32 Neut # (Auto) 2.5 10^3/uL (1.5-6.6) 01/29/24 04:32 Lymph # (Auto) 1.4 10^3/uL (1.5-3.5) L 01/29/24 04:32 Hayes # (Auto) 0.6 10^3/uL (0.0-1.0) 01/29/24 04:32 Eos # (Auto) 0.1 10^3/uL (0.0-0.7) 01/29/24 04:32 Baso # (Auto) 0.0 10^3/uL (0.0-0.1) 01/29/24 04:32 Absolute Nucleated RBC 0.00 x10^3/uL 01/29/24 04:32 Nucleated RBC % 0.0 /100WBC 01/29/24 04:32 VBG pH 7.551 (7.31-7.41) H 01/29/24 04:32 VBG pCO2 17.1 mmHg (41-51) L 01/27/24 13:14 VBG pO2 205.0 mmHg (25-47) H 01/27/24 13:14 VBG HCO3 8.3 mmol/L (23-28) L 01/27/24 13:14 VBG Total CO2 9.0 mmol/L (24-29) L 01/27/24 13:14 VBG O2 Saturation 100.0 % (60-80) H 01/27/24 13:14 VBG Base Excess -18.0 mmol/L (-2 - +2) L 01/27/24 13:14 Ionized Calcium 1.18 mmol/L (1.15-1.33) 01/29/24 04:32 Sodium 138 mmol/L (135-145) 01/29/24 04:32 Potassium 3.1 mmol/L (3.5-4.5) L 01/29/24 04:32 Chloride 96 mmol/L (101-111) L 01/29/24 04:32 Carbon Dioxide 35 mmol/L (21-32) H 01/29/24 04:32 Anion Gap 7.0 (6-13) 01/29/24 04:32 BUN 6 mg/dL (6-20) 01/29/24 04:32 Creatinine 0.3 mg/dL (0.6-1.3) L 01/29/24 04:32 Estimated GFR (MDRD) 227 (>89) 01/29/24 04:32 Glucose 110 mg/dL (74-104) H 01/29/24 04:32 Lactic Acid 1.8 mmol/L (0.5-2.2) 01/27/24 15:23 Calcium 10.4 mg/dL (8.5-10.3) H 01/29/24 04:32 Phosphorus 2.2 mg/dL (2.5-5.0) L 01/29/24 04:32 Magnesium 1.3 mg/dL (1.7-2.3) L 01/29/24 04:32 Total Bilirubin 0.8 mg/dL (0.2-1.0) 01/29/24 04:32 Direct Bilirubin 0.17 mg/dL (0.03-0.18) 01/29/24 04:32 AST 73 IU/L (10-42) H 01/29/24 04:32 ALT 51 IU/L (10-60) 01/29/24 04:32 Alkaline Phosphatase 48 IU/L (42-121) 01/29/24 04:32 Total Protein 6.7 g/dL (6.4-8.9) 01/29/24 04:32 Albumin 3.6 g/dL (3.2-5.5) 01/29/24 04:32 Globulin 3.1 g/dL (2.1-4.2) 01/29/24 04:32 Albumin/Globulin Ratio 1.7 (1.0-2.2) 01/27/24 09:12 Lipase 115 U/L (11-82) H 01/27/24 06:40 Urine Color DARK YELLOW 01/27/24 08:05 Urine Clarity CLEAR (CLEAR) 01/27/24 08:05 Urine pH 5.5 PH (5.0-7.5) 01/27/24 08:05 Ur Specific [place] >=1.030 (1.002-1.030) H 01/27/24 08:05 Urine Protein 100 mg/dL (NEGATIVE) H 01/27/24 08:05 Urine Glucose (UA) NEGATIVE mg/dL (NEGATIVE) 01/27/24 08:05 Urine Ketones 15 mg/dL (NEGATIVE) H 01/27/24 08:05 Urine Occult Blood SMALL (NEGATIVE) H 01/27/24 08:05 Urine Nitrite NEGATIVE (NEGATIVE) 01/27/24 08:05 Urine Bilirubin MODERATE (NEGATIVE) H 01/27/24 08:05 Urine Urobilinogen 1 (NORMAL) E.U./dL (NORMAL) 01/27/24 08:05 Ur Leukocyte Esterase NEGATIVE (NEGATIVE) 01/27/24 08:05 Urine RBC 0-5 /HPF (0-5) 01/27/24 08:05 Urine WBC 4-5 /HPF (0-5) 01/27/24 08:05 Ur Squamous Epith Cells FEW Squamous (<= Few) 01/27/24 08:05 Urine Bacteria Moderate /HPF (None Seen) H 01/27/24 08:05 Urine Casts 0-2 Course Granular /LPF0-2 Fine Granular /LPF 01/27/24 08:05 Urine Casts 0-2 Course Granular /LPF0-2 Fine Granular /LPF 01/27/24 08:05 Ur Microscopic Review INDICATED 01/27/24 08:05 Urine Culture Comments NOT INDICATED 01/27/24 08:05 Nasal Adenovirus (PCR) NOT DETECTED 01/27/24 08:51 Nasal B. parapertussis DNA (PCR) NOT DETECTED 01/27/24 08:51 Nasal Coronavir 229E PCR NOT DETECTED 01/27/24 08:51 Nasal Coronavir HKU1 PCR NOT DETECTED 01/27/24 08:51 Nasal Coronavir NL63 PCR NOT DETECTED 01/27/24 08:51 Nasal Coronavir OC43 PCR NOT DETECTED 01/27/24 08:51 Nasal Enterovir/Rhinovir PCR NOT DETECTED 01/27/24 08:51 Nasal Influenza B PCR NOT DETECTED 01/27/24 08:51 Nasal Influenza A PCR NOT DETECTED 01/27/24 08:51 Nasal Parainfluen 1 PCR NOT DETECTED 01/27/24 08:51 Nasal Parainfluen 2 PCR NOT DETECTED 01/27/24 08:51 Nasal Parainfluen 3 PCR NOT DETECTED 01/27/24 08:51 Nasal Parainfluen 4 PCR NOT DETECTED 01/27/24 08:51 Nasal RSV (PCR) NOT DETECTED 01/27/24 08:51 Nasal Screen MRSA (PCR) NEGATIVE (NEGATIVE) 01/27/24 10:00 Nasal B.pertussis DNA PCR NOT DETECTED 01/27/24 08:51 Nasal C.pneumoniae (PCR) NOT DETECTED 01/27/24 08:51 John Human Metapneumo PCR NOT DETECTED 01/27/24 08:51 Nasal M.pneumoniae (PCR) NOT DETECTED 01/27/24 08:51 Nasal SARS-CoV-2 (PCR) NOT DETECTED 01/27/24 08:51 Stl C. diff Tox B Gene POSITIVE (NEGATIVE) A* 01/27/24 21:30 Ethyl Alcohol 183.0 mg/dL 01/27/24 06:40 Serum Ketones SMALL (NEGATIVE) H 01/27/24 06:40
[2024-01-29] MEDS: HYDROcod/ACETAM 5/325 MG TABLET PO PRN (12:31)
[2024-01-29 12:46] LABS: POTASSIUM 2.9 mmol/L (3.5-4.5)
[2024-01-29] MEDS: POTASSIUM CHLOR 10 MEQ/100 ML 10 MEQ/100 ML BAG IV SCH (12:55)
[2024-01-29] MEDS: chlordiazePOXIDE 25 MG CAPSULE PO SCH (14:08)
[2024-01-30] MEDS: guaiFENesin/DEXTROMETHORPHAN 10 ML UDC PO PRN (04:06)
[2024-01-30 05:04] LABS: BASOPHILS % (AUTO) 0.3 %; EOSINOPHILS # (AUTO) 0.1 10^3/uL (0.0-0.7); EOSINOPHILS % (AUTO) 2.9 %; HCT - HEMATOCRIT 37.4 % (37.0-47.0); HGB - HEMOGLOBIN 12.1 g/dL (12.0-16.0); LYMPHOCYTES % (AUTO) 27.8 %; MEAN CORPUSCULAR HEMOGLOBIN 29.2 pg (27.0-31.0); MEAN CORPUSCULAR HGB CONC 32.4 g/dL (32.0-36.0); MEAN CORPUSCULAR VOLUME 90.1 fL (81.0-99.0); MEAN PLATELET VOLUME 10.2 fL (7.9-10.8); MONOCYTES # (AUTO) 0.4 10^3/uL (0.0-1.0); MONOCYTES % (AUTO) 9.9 %; NEUTROPHILS # (AUTO) 2.2 10^3/uL (1.5-6.6); NEUTROPHILS % (AUTO) 58.6 %; PLT - PLATELET COUNT 85 10^3/uL (130-450); RED BLOOD COUNT 4.15 10^6/uL (4.20-5.40); RED CELL DISTRIBUTION WIDTH 15.8 % (12.0-15.0); WHITE BLOOD COUNT 3.7 x10^3/uL (4.8-10.8)
[2024-01-30 05:18] LABS: CALCIUM, IONIZED 1.23 mmol/L (1.15-1.33); VBG PH 7.446 (7.31-7.41)
[2024-01-30 05:27] LABS: CALCIUM 10.4 mg/dL (8.5-10.3); CREATININE 0.3 mg/dL (0.6-1.3); PHOSPHORUS 2.3 mg/dL (2.5-5.0); POTASSIUM 3.2 mmol/L (3.5-4.5)
[2024-01-30 05:28] LABS: ALBUMIN 3.9 g/dL (3.2-5.5); BILIRUBIN,DIRECT 0.23 mg/dL (0.03-0.18); BILIRUBIN,TOTAL 0.9 mg/dL (0.2-1.0); MAGNESIUM 1.4 mg/dL (1.7-2.3); TOTAL PROTEIN 7.2 g/dL (6.4-8.9)
[2024-01-30] MEDS: MAGNESIUM SULFATE 2 GRAM 2 GM/50 ML BAG IV SCH (06:46)
[2024-01-30] MEDS: POTASSIUM PHOSPHATE 15 MMOL in SODIUM CHLORIDE 0.9% 250 ML IV ONE (08:53)
--- NOTE | 2024-01-30 12:19 | PROVIDER PROGRESS NOTE ---
Assessment/Plan - Problem List (1) Alcohol withdrawal Qualifiers: Complication of substance-induced condition: uncomplicated Qualified Code(s): F10.930 - Alcohol use, unspecified with withdrawal, uncomplicated Assessment/Plan: (1) Alcohol withdrawal Conclusion/Plan: --Admitted to the ICU for alcohol withdrawal. Will start her on CIWA with IV Ativan. Tapered her Librium to TID. --Social work consult for recurrent admissions for alcohol withdrawal. --Drinks 1 pint over 2 days. --Continue with thiamine and folate supplementation. Qualifiers: Complication of substance-induced condition: uncomplicated Qualified Code(s): F10.930 - Alcohol use, unspecified with withdrawal, uncomplicated (2) Alcoholic ketoacidosis Conclusion/Plan: --Resolved. (3) Hypomagnesemia Conclusion/Plan: --Repleting magnesium. (4) Nicotine dependence Conclusion/Plan: --Nicotine replacement patch ordered. Qualifiers: Nicotine product type: cigarettes Substance use status: unspecified nicotine-induced disorder Qualified Code(s): F17.219 - Nicotine dependence, cigarettes, with unspecified nicotine-induced disorders (5) Pancreatitis, acute Conclusion/Plan: --Resolved. She is eating. Qualifiers: Pancreatitis type: alcohol induced Acute pancreatitis complication: no infection or necrosis Qualified Code(s): K85.20 - Alcohol induced acute pancreatitis without necrosis or infection (6) C. difficile diarrhea Assessment/Plan: --Started on oral Vancomycin. She was gene and toxin positive with diarrhea. --Diarrhea has since resolved. Dispo: Could transfer to floor tomorrow. Replacing lytes via ICU protocol. (4) Nicotine dependence Qualifiers: Nicotine product type: cigarettes Substance use status: unspecified nicotine-induced disorder Qualified Code(s): F17.219 - Nicotine dependence, cigarettes, with unspecified nicotine-induced disorders (5) Pancreatitis, acute Qualifiers: Pancreatitis type: alcohol induced Acute pancreatitis complication: no infection or necrosis Qualified Code(s): K85.20 - Alcohol induced acute pancreatitis without necrosis or infection - Current Meds Current Meds: Current Medications Generic Name Dose Route Start Last Admin Trade Name Freq PRN Reason Stop Dose Admin Hydrocodone Bitart/Acetaminophen 1 tab 01/27/24 08:58 01/29/24 21:39 Hydrocod/Acetam 5/325 Mg Tablet PO 1 tab Q4HR PRN Administration Pain 5 to 7 Calcium Carbonate/Glycine 500 mg 04/04/24 21:00 01/30/24 07:54 Calcium Carbonate Chew 500 Mg Tablet PO 500 mg BID YOUSIF Administration Enoxaparin Sodium 40 mg 01/27/24 09:00 01/30/24 07:57 Enoxaparin 40 Mg/0.4 Ml Syringe SUBQ Not Given DAILY YOUSIF Famotidine 20 mg 01/28/24 21:00 01/30/24 07:54 Famotidine 20 Mg Tablet PO 20 mg BID YOUSIF Administration Guaifenesin 10 ml 01/30/24 03:55 01/30/24 04:06 Guaifenesin/Dextromethorphan 10 Ml Udc PO 10 ml Q6HR PRN Administration Cough Ibuprofen 400 mg 01/27/24 08:58 01/28/24 16:14 Ibuprofen 400 Mg Tablet PO 400 mg Q4HR PRN Administration Pain 1 to 4 Lorazepam 2 - 20 mg 01/27/24 08:58 01/27/24 20:37 Lorazepam 2 Mg/Ml Vial IVP 2 mg Q15M PRN Administration RASS > 0 Protocol Metoclopramide HCl 5 mg 01/27/24 15:07 01/27/24 20:14 Metoclopramide 10 Mg/2 Ml Vial IVP 5 mg Q6HR PRN Administration Nausea / Vomiting Nicotine 1 patch 01/28/24 12:00 01/30/24 07:55 Nicotine 14 Mg Patch TOP 1 patch DAILY YOUSIF Administration Ondansetron HCl 4 mg 01/27/24 08:58 01/28/24 12:39 Ondansetron 4 Mg/2 Ml Vial IVP 4 mg Q6HR PRN Administration Nausea / Vomiting Multivit/Folic Acid/Iron 1 tab 01/27/24 09:00 01/30/24 07:54 Vitamin Tablet PO 1 tab DAILY YOUSIF Administration Saccharomyces Boulardii 500 mg 01/29/24 08:00 01/30/24 07:54 Saccharomyces Boulardii 250 Mg Capsule PO 500 mg BIDWM YOUSIF Administration Sodium Chloride 10 ml 01/27/24 09:00 01/30/24 07:52 Sodium Chloride Flush 0.9% 10 Ml Syringe IVP 10 ml 0100,0900,1700 YOUSIF Administration Sodium Chloride 10 ml 01/27/24 08:58 01/29/24 12:31 Sodium Chloride Flush 0.9% 10 Ml Syringe IVP 20 ml PRN PRN Administration NEEDED PER PROVIDER ORDERS Thiamine HCl 100 mg 01/27/24 09:00 01/30/24 07:55 Thiamine 100 Mg Tablet PO 100 mg DAILY YOUSIF Administration Vancomycin HCl 125 mg 01/27/24 23:45 01/30/24 07:54 Vancomycin 125 Mg Capsule PO 125 mg QID YOUSIF Administration - Lab Result Fish Bone Diagrams: 01/30/24 04:44 01/30/24 04:44 - Additional Planning My Orders: My Active Orders 01/30/24 14:00 chlordiazePOXIDE [Librium] 10 mg PO TID 01/31/24 05:00 BMP - BASIC METABOLIC PANEL [CHEM] DAILYLAB CBC [CBC - COMP BLD CT W/AUTO DIFF] [HEME] DAILYLAB PHOSPHORUS [CHEM] DAILYLAB 01/31/24 09:00 LIVER PANEL [CHEM] DAILY MAGNESIUM [CHEM] DAILY 02/01/24 05:00 BMP - BASIC METABOLIC PANEL [CHEM] DAILYLAB CBC [CBC - COMP BLD CT W/AUTO DIFF] [HEME] DAILYLAB 02/01/24 09:00 LIVER PANEL [CHEM] DAILY MAGNESIUM [CHEM] DAILY 02/02/24 05:00 BMP - BASIC METABOLIC PANEL [CHEM] DAILYLAB CBC [CBC - COMP BLD CT W/AUTO DIFF] [HEME] DAILYLAB Subjective - Subjective Patient Reports: Feeling Better, Resting Comfortably, No Complaints Objective Vital Signs: Vital Signs - 24 hr 01/29/24 01/29/24 01/29/24 13:00 15:00 17:16 Temperature Heart Rate [ 106 H 94 120 H Monitoring electrodes] Respiratory 24 18 18 Rate Blood Pressure 123/83 H 102/68 124/91 H [Right Brachial artery] O2 Saturation 100 99 92 If not protocol 2 2 2 : Oxygen Flow, liters/minute 01/29/24 01/29/24 01/29/24 18:32 20:00 21:00 Temperature 98.0 C H Heart Rate [ 97 102 H 92 Monitoring electrodes] Respiratory 22 18 20 Rate Blood Pressure 109/74 92/72 109/72 [Right Brachial artery] O2 Saturation 96 92 94 If not protocol 2 : Oxygen Flow, liters/minute 01/29/24 01/29/24 01/30/24 22:00 23:00 00:00 Temperature 36.6 C Heart Rate [ 93 99 86 Monitoring electrodes] Respiratory 16 20 15 Rate Blood Pressure 121/79 99/71 120/80 [Right Brachial artery] O2 Saturation 94 95 96 If not protocol : Oxygen Flow, liters/minute 01/30/24 01/30/24 01/30/24 01:00 02:00 03:00 Temperature Heart Rate [ 85 85 95 Monitoring electrodes] Respiratory 17 27 H 12 Rate Blood Pressure 111/73 116/72 130/83 H [Right Brachial artery] O2 Saturation 94 92 95 If not protocol : Oxygen Flow, liters/minute 01/30/24 01/30/24 01/30/24 04:00 05:00 06:00 Temperature 36.6 C Heart Rate [ 101 H 94 86 Monitoring electrodes] Respiratory 20 17 22 Rate Blood Pressure 118/86 H 109/78 109/74 [Right Brachial artery] O2 Saturation 94 91 L 94 If not protocol : Oxygen Flow, liters/minute 01/30/24 01/30/24 01/30/24 07:00 08:00 09:00 Temperature 36.6 C Heart Rate [ 98 89 92 Monitoring electrodes] Respiratory 17 20 Rate Blood Pressure 112/73 131/94 H 107/63 [Right Brachial artery] O2 Saturation 97 91 L 92 If not protocol : Oxygen Flow, liters/minute 01/30/24 01/30/24 10:09 11:00 Temperature Heart Rate [ 93 86 Monitoring electrodes] Respiratory 20 16 Rate Blood Pressure 98/61 94/64 [Right Brachial artery] O2 Saturation 92 95 If not protocol : Oxygen Flow, liters/minute Oxygen O2 Source Room air Oxygen Flow Rate 2 I&O (Last 24 Hrs): Intake and Output Totals x24h 01/28/24 01/29/24 01/30/24 23:59 23:59 23:59 Intake Total 2572.5 1459.416 480 Output Total 500 0 Balance 2072.5 1459.416 480 General: Alert Cardiovascular: Regular rate, Normal S1, Normal S2 Respiratory: Chest non-tender, No respiratory distress, Breath sounds nml Abdomen: Normal bowel sounds, Soft, No tenderness - Results Results: Laboratory Results WBC 3.7 x10^3/uL (4.8-10.8) L 01/30/24 04:44 RBC 4.15 10^6/uL (4.20-5.40) L 01/30/24 04:44 Hgb 12.1 g/dL (12.0-16.0) 01/30/24 04:44 Hct 37.4 % (37.0-47.0) 01/30/24 04:44 MCV 90.1 fL (81.0-99.0) 01/30/24 04:44 MCH 29.2 pg (27.0-31.0) 01/30/24 04:44 MCHC 32.4 g/dL (32.0-36.0) 01/30/24 04:44 RDW 15.8 % (12.0-15.0) H 01/30/24 04:44 Plt Count 85 10^3/uL (130-450) L 01/30/24 04:44 MPV 10.2 fL (7.9-10.8) 01/30/24 04:44 Neut # (Auto) 2.2 10^3/uL (1.5-6.6) 01/30/24 04:44 Lymph # (Auto) 1.0 10^3/uL (1.5-3.5) L 01/30/24 04:44 [place] # (Auto) 0.4 10^3/uL (0.0-1.0) 01/30/24 04:44 Eos # (Auto) 0.1 10^3/uL (0.0-0.7) 01/30/24 04:44 Baso # (Auto) 0.0 10^3/uL (0.0-0.1) 01/30/24 04:44 Absolute Nucleated RBC 0.00 x10^3/uL 01/30/24 04:44 Nucleated RBC % 0.0 /100WBC 01/30/24 04:44 VBG pH 7.446 (7.31-7.41) H 01/30/24 04:44 VBG pCO2 17.1 mmHg (41-51) L 01/27/24 13:14 VBG pO2 205.0 mmHg (25-47) H 01/27/24 13:14 VBG HCO3 8.3 mmol/L (23-28) L 01/27/24 13:14 VBG Total CO2 9.0 mmol/L (24-29) L 01/27/24 13:14 VBG O2 Saturation 100.0 % (60-80) H 01/27/24 13:14 VBG Base Excess -18.0 mmol/L (-2 - +2) L 01/27/24 13:14 Ionized Calcium 1.23 mmol/L (1.15-1.33) 01/30/24 04:44 Sodium 136 mmol/L (135-145) 01/30/24 04:44 Potassium 3.2 mmol/L (3.5-4.5) L 01/30/24 04:44 Chloride 100 mmol/L (101-111) L 01/30/24 04:44 Carbon Dioxide 28 mmol/L (21-32) 01/30/24 04:44 Anion Gap 8.0 (6-13) 01/30/24 04:44 BUN 6 mg/dL (6-20) 01/30/24 04:44 Creatinine 0.3 mg/dL (0.6-1.3) L 01/30/24 04:44 Estimated GFR (MDRD) 227 (>89) 01/30/24 04:44 Glucose 144 mg/dL (74-104) H 01/30/24 04:44 Lactic Acid 1.8 mmol/L (0.5-2.2) 01/27/24 15:23 Calcium 10.4 mg/dL (8.5-10.3) H 01/30/24 04:44 Phosphorus 2.3 mg/dL (2.5-5.0) L 01/30/24 04:44 Magnesium 1.4 mg/dL (1.7-2.3) L 01/30/24 04:44 Total Bilirubin 0.9 mg/dL (0.2-1.0) 01/30/24 04:44 Direct Bilirubin 0.23 mg/dL (0.03-0.18) H 01/30/24 04:44 AST 76 IU/L (10-42) H 01/30/24 04:44 ALT 58 IU/L (10-60) 01/30/24 04:44 Alkaline Phosphatase 51 IU/L (42-121) 01/30/24 04:44 Total Protein 7.2 g/dL (6.4-8.9) 01/30/24 04:44 Albumin 3.9 g/dL (3.2-5.5) 01/30/24 04:44 Globulin 3.3 g/dL (2.1-4.2) 01/30/24 04:44 Albumin/Globulin Ratio 1.7 (1.0-2.2) 01/27/24 09:12 Lipase 115 U/L (11-82) H 01/27/24 06:40 Urine Color DARK YELLOW 01/27/24 08:05 Urine Clarity CLEAR (CLEAR) 01/27/24 08:05 Urine pH 5.5 PH (5.0-7.5) 01/27/24 08:05 Ur Specific [place] >=1.030 (1.002-1.030) H 01/27/24 08:05 Urine Protein 100 mg/dL (NEGATIVE) H 01/27/24 08:05 Urine Glucose (UA) NEGATIVE mg/dL (NEGATIVE) 01/27/24 08:05 Urine Ketones 15 mg/dL (NEGATIVE) H 01/27/24 08:05 Urine Occult Blood SMALL (NEGATIVE) H 01/27/24 08:05 Urine Nitrite NEGATIVE (NEGATIVE) 01/27/24 08:05 Urine Bilirubin MODERATE (NEGATIVE) H 01/27/24 08:05 Urine Urobilinogen 1 (NORMAL) E.U./dL (NORMAL) 01/27/24 08:05 Ur Leukocyte Esterase NEGATIVE (NEGATIVE) 01/27/24 08:05 Urine RBC 0-5 /HPF (0-5) 01/27/24 08:05 Urine WBC 4-5 /HPF (0-5) 01/27/24 08:05 Ur Squamous Epith Cells FEW Squamous (<= Few) 01/27/24 08:05 Urine Bacteria Moderate /HPF (None Seen) H 01/27/24 08:05 Urine Casts 0-2 Course Granular /LPF0-2 Fine Granular /LPF 01/27/24 08:05 Urine Casts 0-2 Course Granular /LPF0-2 Fine Granular /LPF 01/27/24 08:05 Ur Microscopic Review INDICATED 01/27/24 08:05 Urine Culture Comments NOT INDICATED 01/27/24 08:05 Nasal Adenovirus (PCR) NOT DETECTED 01/27/24 08:51 Nasal B. parapertussis DNA (PCR) NOT DETECTED 01/27/24 08:51 Nasal Coronavir 229E PCR NOT DETECTED 01/27/24 08:51 Nasal Coronavir HKU1 PCR NOT DETECTED 01/27/24 08:51 Nasal Coronavir NL63 PCR NOT DETECTED 01/27/24 08:51 Nasal Coronavir OC43 PCR NOT DETECTED 01/27/24 08:51 Nasal Enterovir/Rhinovir PCR NOT DETECTED 01/27/24 08:51 Nasal Influenza B PCR NOT DETECTED 01/27/24 08:51 Nasal Influenza A PCR NOT DETECTED 01/27/24 08:51 Nasal Parainfluen 1 PCR NOT DETECTED 01/27/24 08:51 Nasal Parainfluen 2 PCR NOT DETECTED 01/27/24 08:51 Nasal Parainfluen 3 PCR NOT DETECTED 01/27/24 08:51 Nasal Parainfluen 4 PCR NOT DETECTED 01/27/24 08:51 Nasal RSV (PCR) NOT DETECTED 01/27/24 08:51 Nasal Screen MRSA (PCR) NEGATIVE (NEGATIVE) 01/27/24 10:00 Nasal B.pertussis DNA PCR NOT DETECTED 01/27/24 08:51 Nasal C.pneumoniae (PCR) NOT DETECTED 01/27/24 08:51 John Human Metapneumo PCR NOT DETECTED 01/27/24 08:51 Nasal M.pneumoniae (PCR) NOT DETECTED 01/27/24 08:51 Nasal SARS-CoV-2 (PCR) NOT DETECTED 01/27/24 08:51 Stl C. diff Tox B Gene POSITIVE (NEGATIVE) A* 01/27/24 21:30 Ethyl Alcohol 183.0 mg/dL 01/27/24 06:40 Serum Ketones SMALL (NEGATIVE) H 01/27/24 06:40
[2024-01-30] MEDS: chlordiazePOXIDE 5 MG CAPSULE PO SCH (13:30)
[2024-01-30 15:13] LABS: POTASSIUM 3.4 mmol/L (3.5-4.5)
[2024-01-30] MEDS: POTASSIUM CHLORIDE 20 MEQ/15 ML UDC PO SCH (15:29)
[2024-01-30] MEDS: GI COCKTAIL 120 ML BOTTLE PO PRN (16:48)
[2024-01-31 04:48] LABS: BASOPHILS # (AUTO) 0.1 10^3/uL (0.0-0.1); BASOPHILS % (AUTO) 1.2 %; EOSINOPHILS # (AUTO) 0.1 10^3/uL (0.0-0.7); EOSINOPHILS % (AUTO) 2.7 %; HCT - HEMATOCRIT 37.6 % (37.0-47.0); HGB - HEMOGLOBIN 11.8 g/dL (12.0-16.0); LYMPHOCYTES # (AUTO) 1.7 10^3/uL (1.5-3.5); LYMPHOCYTES % (AUTO) 41.9 %; MEAN CORPUSCULAR HEMOGLOBIN 29.2 pg (27.0-31.0); MEAN CORPUSCULAR HGB CONC 31.4 g/dL (32.0-36.0); MEAN CORPUSCULAR VOLUME 93.1 fL (81.0-99.0); MEAN PLATELET VOLUME 10.1 fL (7.9-10.8); MONOCYTES # (AUTO) 0.6 10^3/uL (0.0-1.0); MONOCYTES % (AUTO) 13.3 %; NEUTROPHILS # (AUTO) 1.7 10^3/uL (1.5-6.6); NEUTROPHILS % (AUTO) 39.9 %; PLT - PLATELET COUNT 102 10^3/uL (130-450); RED BLOOD COUNT 4.04 10^6/uL (4.20-5.40); RED CELL DISTRIBUTION WIDTH 15.9 % (12.0-15.0); WHITE BLOOD COUNT 4.2 x10^3/uL (4.8-10.8)
[2024-01-31 05:07] LABS: ALBUMIN 3.7 g/dL (3.2-5.5); BILIRUBIN,DIRECT 0.15 mg/dL (0.03-0.18); BILIRUBIN,TOTAL 0.6 mg/dL (0.2-1.0); MAGNESIUM 1.7 mg/dL (1.7-2.3); TOTAL PROTEIN 6.8 g/dL (6.4-8.9)
[2024-01-31 05:08] LABS: CALCIUM 10.1 mg/dL (8.5-10.3); CREATININE 0.4 mg/dL (0.6-1.3); PHOSPHORUS 3.1 mg/dL (2.5-5.0); POTASSIUM 3.9 mmol/L (3.5-4.5)
[2024-01-31 05:15] LABS: CALCIUM, IONIZED 1.14 mmol/L (1.15-1.33); VBG PH 7.46 (7.31-7.41)
[2024-01-31] MEDS: MAGNESIUM OXIDE 400 MG TABLET PO ONE (05:46)
--- NOTE | 2024-01-31 09:04 | PROVIDER PROGRESS NOTE ---
Assessment/Plan - Problem List (1) Alcohol withdrawal Qualifiers: Complication of substance-induced condition: uncomplicated Qualified Code(s): F10.930 - Alcohol use, unspecified with withdrawal, uncomplicated Assessment/Plan: (1) Alcohol withdrawal Conclusion/Plan: --Tapering Librium. --Social work consult for recurrent admissions for alcohol withdrawal. --Drinks 1 pint over 2 days. --Continue with thiamine and folate supplementation. Qualifiers: Complication of substance-induced condition: uncomplicated Qualified Code(s): F10.930 - Alcohol use, unspecified with withdrawal, uncomplicated (2) Alcoholic ketoacidosis Conclusion/Plan: --Resolved. (3) Hypomagnesemia Conclusion/Plan: --Repleting magnesium. (4) Nicotine dependence Conclusion/Plan: --Nicotine replacement patch ordered. Qualifiers: Nicotine product type: cigarettes Substance use status: unspecified nicotine-induced disorder Qualified Code(s): F17.219 - Nicotine dependence, cigarettes, with unspecified nicotine-induced disorders (5) Pancreatitis, acute Conclusion/Plan: --Resolved. She is eating. Qualifiers: Pancreatitis type: alcohol induced Acute pancreatitis complication: no infe ction or necrosis Qualified Code(s): K85.20 - Alcohol induced acute pancr eatitis without necrosis or infection (6) C. difficile diarrhea Assessment/Plan: --Started on oral Vancomycin. She was gene and toxin positive with diarrhea. --Diarrhea has since resolved. Dispo: Anticipate discharge tomorrow. (4) Nicotine dependence Qualifiers: Nicotine product type: cigarettes Substance use status: unspecified nicotine-induced disorder Qualified Code(s): F17.219 - Nicotine dependence, cigarettes, with unspecified nicotine-induced disorders (5) Pancreatitis, acute Qualifiers: Pancreatitis type: alcohol induced Acute pancreatitis complication: no infection or necrosis Qualified Code(s): K85.20 - Alcohol induced acute pancreatitis without necrosis or infection - Current Meds Current Meds: Current Medications Generic Name Dose Route Start Last Admin Trade Name Freq PRN Reason Stop Dose Admin Hydrocodone Bitart/Acetaminophen 1 tab 01/27/24 08:58 01/30/24 23:24 Hydrocod/Acetam 5/325 Mg Tablet PO 1 tab Q4HR PRN Administration Pain 5 to 7 Calcium Carbonate/Glycine 500 mg 01/28/24 21:00 01/31/24 08:45 Calcium Carbonate Chew 500 Mg Tablet PO 500 mg BID YOUSIF Administration Chlordiazepoxide HCl 10 mg 01/30/24 14:00 01/31/24 05:46 Chlordiazepoxide 5 Mg Capsule PO 01/31/24 22:01 10 mg TID YOUSIF Administration Enoxaparin Sodium 40 mg 01/27/24 09:00 01/31/24 08:47 Enoxaparin 40 Mg/0.4 Ml Syringe SUBQ Not Given DAILY [facility] Famotidine 20 mg 01/28/24 21:00 01/31/24 08:44 Famotidine 20 Mg Tablet PO 20 mg BID YOUSIF Administration Guaifenesin 10 ml 01/30/24 03:55 01/31/24 05:52 Guaifenesin/Dextromethorphan 10 Ml Udc PO 10 ml Q6HR PRN Administration Cough Ibuprofen 400 mg 01/27/24 08:58 01/28/24 16:14 Ibuprofen 400 Mg Tablet PO 400 mg Q4HR PRN Administration Pain 1 to 4 Lorazepam 2 - 20 mg 01/27/24 08:58 01/27/24 20:37 Lorazepam 2 Mg/Ml Vial IVP 2 mg Q15M PRN Administration RASS > 0 Protocol Metoclopramide HCl 5 mg 01/27/24 15:07 01/27/24 20:14 Metoclopramide 10 Mg/2 Ml Vial IVP 5 mg Q6HR PRN Administration Nausea / Vomiting Multi-Ingredient Mouthwash/Gargle 30 ml 01/30/24 16:18 01/30/24 20:26 Gi Cocktail 120 Ml Bottle PO 30 ml Q4H PRN Administration Abdominal Pain Nicotine 1 patch 01/28/24 12:00 01/31/24 08:45 Nicotine 14 Mg Patch TOP 1 patch DAILY YOUSIF Administration Ondansetron HCl 4 mg 01/27/24 08:58 01/28/24 12:39 Ondansetron 4 Mg/2 Ml Vial IVP 4 mg Q6HR PRN Administration Nausea / Vomiting Multivit/Folic Acid/Iron 1 tab 01/27/24 09:00 01/31/24 08:44 Vitamin Tablet PO 1 tab DAILY [facility] Administration Saccharomyces Boulardii 500 mg 01/29/24 08:00 01/31/24 08:44 Saccharomyces Boulardii 250 Mg Capsule PO 500 mg BIDWM [facility] Administration Sodium Chloride 10 ml 01/27/24 09:00 01/31/24 08:45 Sodium Chloride Flush 0.9% 10 Ml Syringe IVP 10 ml 0100,0900,1700 YOUSIF Administration Sodium Chloride 10 ml 01/27/24 08:58 01/29/24 12:31 Sodium Chloride Flush 0.9% 10 Ml Syringe IVP 20 ml PRN PRN Administration NEEDED PER PROVIDER ORDERS Thiamine HCl 100 mg 01/27/24 09:00 01/31/24 08:45 Thiamine 100 Mg Tablet PO 100 mg DAILY YOUSIF Administration Vancomycin HCl 125 mg 01/27/24 23:45 01/31/24 08:45 Vancomycin 125 Mg Capsule PO 125 mg QID OYUSIF Administration - Lab Result Fish Bone Diagrams: 01/31/24 04:27 01/31/24 04:27 - Additional Planning My Orders: My Active Orders 01/30/24 14:00 chlordiazePOXIDE [Librium] 10 mg PO TID 01/30/24 16:18 Gi Cocktail 30 ml PO Q4H PRN 02/01/24 05:00 BMP - BASIC METABOLIC PANEL [CHEM] DAILYLAB CBC [CBC - COMP BLD CT W/AUTO DIFF] [HEME] DAILYLAB 02/01/24 09:00 LIVER PANEL [CHEM] DAILY MAGNESIUM [CHEM] DAILY 02/02/24 05:00 BMP - BASIC METABOLIC PANEL [CHEM] DAILYLAB CBC [CBC - COMP BLD CT W/AUTO DIFF] [HEME] DAILYLAB Subjective - Subjective Patient Reports: Feeling Better, Resting Comfortably, No Complaints Objective Vital Signs: Vital Signs - 24 hr 01/30/24 01/30/24 01/30/24 10:09 11:00 13:00 Temperature Heart Rate [ 93 86 108 H Monitoring electrodes] Respiratory 20 16 19 Rate Blood Pressure [Left Brachial artery] Blood Pressure 98/61 94/64 113/100 H [Right Brachial artery] O2 Saturation 92 95 01/30/24 01/30/24 01/30/24 15:00 17:00 19:00 Temperature Heart Rate [ 97 98 93 Monitoring electrodes] Respiratory 20 17 19 Rate Blood Pressure [Left Brachial artery] Blood Pressure 116/87 H 127/74 108/69 [Right Brachial artery] O2 Saturation 97 94 94 01/30/24 01/30/24 01/30/24 20:00 20:15 21:00 Temperature 36.8 C Heart Rate [ 88 99 Monitoring electrodes] Respiratory 23 24 Rate Blood Pressure 123/86 H [Left Brachial artery] Blood Pressure 113/73 [Right Brachial artery] O2 Saturation 92 97 01/30/24 01/30/24 01/31/24 22:00 23:00 00:00 Temperature Heart Rate [ 88 90 93 Monitoring electrodes] Respiratory 20 13 22 Rate Blood Pressure 111/76 120/95 H 116/77 [Left Brachial artery] Blood Pressure [Right Brachial artery] O2 Saturation 93 97 93 01/31/24 01/31/24 01/31/24 01:00 02:00 03:00 Temperature 36.8 C Heart Rate [ 86 91 88 Monitoring electrodes] Respiratory 17 18 17 Rate Blood Pressure 108/66 101/67 100/69 [Left Brachial artery] Blood Pressure [Right Brachial artery] O2 Saturation 95 97 95 01/31/24 01/31/24 01/31/24 04:00 05:00 06:00 Temperature 36.8 C Heart Rate [ 81 87 95 Monitoring electrodes] Respiratory 17 17 19 Rate Blood Pressure 95/68 91/64 99/74 [Left Brachial artery] Blood Pressure [Right Brachial artery] O2 Saturation 96 93 93 01/31/24 07:00 Temperature Heart Rate [ 98 Monitoring electrodes] Respiratory 19 Rate Blood Pressure 111/69 [Left Brachial artery] Blood Pressure [Right Brachial artery] O2 Saturation 96 Oxygen O2 Source Room air Oxygen Flow Rate 2 I&O (Last 24 Hrs): Intake and Output Totals x24h 01/29/24 01/30/24 01/31/24 23:59 23:59 23:59 Intake Total 9501.963 1541.25 400 Output Total 0 150 Balance 2584.986 3970.25 400 General: Alert, Oriented x3, Cooperative, No acute distress Cardiovascular: Regular rate, Normal S1, Normal S2, No murmurs Respiratory: Chest non-tender, No respiratory distress, Breath sounds nml Abdomen: Normal bowel sounds, Soft, No tenderness, No hepatospenomegaly, No masses - Results Results: Laboratory Results WBC 4.2 x10^3/uL (4.8-10.8) L 01/31/24 04:27 RBC 4.04 10^6/uL (4.20-5.40) L 01/31/24 04:27 Hgb 11.8 g/dL (12.0-16.0) L 01/31/24 04:27 Hct 37.6 % (37.0-47.0) 01/31/24 04:27 MCV 93.1 fL (81.0-99.0) 01/31/24 04: MCH 29.2 pg (27.0-31.0) 01/31/24 04: MCHC 31.4 g/dL (32.0-36.0) L 01/31/24 04: RDW 15.9 % (12.0-15.0) H 01/31/24 04:27 Plt Count 102 10^3/uL (130-450) L 01/31/24 04: MPV 10.1 fL (7.9-10.8) 01/31/24 04:27 Neut # (Auto) 1.7 10^3/uL (1.5-6.6) 01/31/24 04: Lymph # (Auto) 1.7 10^3/uL (1.5-3.5) 01/31/24 04: [place] # (Auto) 0.6 10^3/uL (0.0-1.0) 01/31/24 04: Eos # (Auto) 0.1 10^3/uL (0.0-0.7) 01/31/24 04: Baso # (Auto) 0.1 10^3/uL (0.0-0.1) 01/31/24 04: Absolute Nucleated RBC 0.00 x10^3/uL 01/31/24 04: Nucleated RBC % 0.0 /100WBC 01/31/24 04:27 VBG pH 7.460 (7.31-7.41) H 01/31/24 04:27 VBG pCO2 17.1 mmHg (41-51) L 01/27/24 13:14 VBG pO2 205.0 mmHg (25-47) H 01/27/24 13:14 VBG HCO3 8.3 mmol/L (23-28) L 01/27/24 13:14 VBG Total CO2 9.0 mmol/L (24-29) L 01/27/24 13:14 VBG O2 Saturation 100.0 % (60-80) H 01/27/24 13:14 VBG Base Excess -18.0 mmol/L (-2 - +2) L 01/27/24 13:14 Ionized Calcium 1.14 mmol/L (1.15-1.33) L 01/31/24 04:27 Sodium 135 mmol/L (135-145) 01/31/24 04:27 Potassium 3.9 mmol/L (3.5-4.5) 01/31/24 04:27 Chloride 101 mmol/L (101-111) 01/31/24 04:27 Carbon Dioxide 29 mmol/L (21-32) 01/31/24 04:27 Anion Gap 5.0 (6-13) L 01/31/24 04:27 BUN 12 mg/dL (6-20) 01/31/24 04:27 Creatinine 0.4 mg/dL (0.6-1.3) L 01/31/24 04:27 Estimated GFR (MDRD) 163 (>89) 01/31/24 04:27 Glucose 105 mg/dL (74-104) H 01/31/24 04:27 Lactic Acid 1.8 mmol/L (0.5-2.2) 01/27/24 15:23 Calcium 10.1 mg/dL (8.5-10.3) 01/31/24 04:27 Phosphorus 3.1 mg/dL (2.5-5.0) 01/31/24 04:27 Magnesium 1.7 mg/dL (1.7-2.3) 01/31/24 04:27 Total Bilirubin 0.6 mg/dL (0.2-1.0) 01/31/24 04:27 Direct Bilirubin 0.15 mg/dL (0.03-0.18) 01/31/24 04:27 AST 94 IU/L (10-42) H 01/31/24 04:27 ALT 74 IU/L (10-60) H 01/31/24 04:27 Alkaline Phosphatase 45 IU/L (42-121) 01/31/24 04:27 Total Protein 6.8 g/dL (6.4-8.9) 01/31/24 04:27 Albumin 3.7 g/dL (3.2-5.5) 01/31/24 04:27 Globulin 3.1 g/dL (2.1-4.2) 01/31/24 04:27 Albumin/Globulin Ratio 1.7 (1.0-2.2) 01/27/24 09:12 Lipase 115 U/L (11-82) H 01/27/24 06:40 Urine Color DARK YELLOW 01/27/24 08:05 Urine Clarity CLEAR (CLEAR) 01/27/24 08:05 Urine pH 5.5 PH (5.0-7.5) 01/27/24 08:05 Ur Specific [place] >=1.030 (1.002-1.030) H 01/27/24 08:05 Urine Protein 100 mg/dL (NEGATIVE) H 01/27/24 08:05 Urine Glucose (UA) NEGATIVE mg/dL (NEGATIVE) 01/27/24 08:05 Urine Ketones 15 mg/dL (NEGATIVE) H 01/27/24 08:05 Urine Occult Blood SMALL (NEGATIVE) H 01/27/24 08:05 Urine Nitrite NEGATIVE (NEGATIVE) 01/27/24 08:05 Urine Bilirubin MODERATE (NEGATIVE) H 01/27/24 08:05 Urine Urobilinogen 1 (NORMAL) E.U./dL (NORMAL) 01/27/24 08:05 Ur Leukocyte Esterase NEGATIVE (NEGATIVE) 01/27/24 08:05 Urine RBC 0-5 /HPF (0-5) 01/27/24 08:05 Urine WBC 4-5 /HPF (0-5) 01/27/24 08:05 Ur Squamous Epith Cells FEW Squamous (<= Few) 01/27/24 08:05 Urine Bacteria Moderate /HPF (None Seen) H 01/27/24 08:05 Urine Casts 0-2 Course Granular /LPF0-2 Fine Granular /LPF 01/27/24 08:05 Urine Casts 0-2 Course Granular /LPF0-2 Fine Granular /LPF 01/27/24 08:05 Ur Microscopic Review INDICATED 01/27/24 08:05 Urine Culture Comments NOT INDICATED 01/27/24 08:05 Nasal Adenovirus (PCR) NOT DETECTED 01/27/24 08:51 Nasal B. parapertussis DNA (PCR) NOT DETECTED 01/27/24 08:51 Nasal Coronavir 229E PCR NOT DETECTED 01/27/24 08:51 Nasal Coronavir HKU1 PCR NOT DETECTED 01/27/24 08:51 Nasal Coronavir NL63 PCR NOT DETECTED 01/27/24 08:51 Nasal Coronavir OC43 PCR NOT DETECTED 01/27/24 08:51 Nasal Enterovir/Rhinovir PCR NOT DETECTED 01/27/24 08:51 Nasal Influenza B PCR NOT DETECTED 01/27/24 08:51 Nasal Influenza A PCR NOT DETECTED 01/27/24 08:51 Nasal Parainfluen 1 PCR NOT DETECTED 01/27/24 08:51 Nasal Parainfluen 2 PCR NOT DETECTED 01/27/24 08:51 Nasal Parainfluen 3 PCR NOT DETECTED 01/27/24 08:51 Nasal Parainfluen 4 PCR NOT DETECTED 01/27/24 08:51 Nasal RSV (PCR) NOT DETECTED 01/27/24 08:51 Nasal Screen MRSA (PCR) NEGATIVE (NEGATIVE) 01/27/24 10:00 Nasal B.pertussis DNA PCR NOT DETECTED 01/27/24 08:51 Nasal C.pneumoniae (PCR) NOT DETECTED 01/27/24 08:51 John Human Metapneumo PCR NOT DETECTED 01/27/24 08:51 Nasal M.pneumoniae (PCR) NOT DETECTED 01/27/24 08:51 Nasal SARS-CoV-2 (PCR) NOT DETECTED 01/27/24 08:51 Stl C. diff Tox B Gene POSITIVE (NEGATIVE) A* 01/27/24 21:30 Ethyl Alcohol 183.0 mg/dL 01/27/24 06:40 Serum Ketones SMALL (NEGATIVE) H 01/27/24 06:40
[2024-02-01 09:11] LABS: BASOPHILS # (AUTO) 0.1 10^3/uL (0.0-0.1); BASOPHILS % (AUTO) 1.3 %; EOSINOPHILS # (AUTO) 0.1 10^3/uL (0.0-0.7); HCT - HEMATOCRIT 41.8 % (37.0-47.0); HGB - HEMOGLOBIN 13.1 g/dL (12.0-16.0); LYMPHOCYTES # (AUTO) 1.8 10^3/uL (1.5-3.5); LYMPHOCYTES % (AUTO) 40.4 %; MEAN CORPUSCULAR HEMOGLOBIN 28.9 pg (27.0-31.0); MEAN CORPUSCULAR HGB CONC 31.3 g/dL (32.0-36.0); MEAN CORPUSCULAR VOLUME 92.3 fL (81.0-99.0); MEAN PLATELET VOLUME 9.9 fL (7.9-10.8); MONOCYTES # (AUTO) 0.7 10^3/uL (0.0-1.0); MONOCYTES % (AUTO) 14.7 %; NEUTROPHILS # (AUTO) 1.8 10^3/uL (1.5-6.6); NEUTROPHILS % (AUTO) 39.8 %; PLT - PLATELET COUNT 173 10^3/uL (130-450); RED BLOOD COUNT 4.53 10^6/uL (4.20-5.40); RED CELL DISTRIBUTION WIDTH 15.4 % (12.0-15.0); WHITE BLOOD COUNT 4.6 x10^3/uL (4.8-10.8)
[2024-02-01 09:24] LABS: ALBUMIN 4.4 g/dL (3.2-5.5); BILIRUBIN,DIRECT 0.17 mg/dL (0.03-0.18); BILIRUBIN,TOTAL 0.5 mg/dL (0.2-1.0); MAGNESIUM 1.6 mg/dL (1.7-2.3); TOTAL PROTEIN 8.2 g/dL (6.4-8.9)
[2024-02-01 09:42] LABS: CALCIUM 10.8 mg/dL (8.5-10.3); CREATININE 0.5 mg/dL (0.6-1.3); POTASSIUM 4.2 mmol/L (3.5-4.5)
--- NOTE | 2024-02-01 14:16 | Discharge Plan ---
Discharge Plan Problem Reviewed?: Yes Disposition: Home, Self Care Condition: Stable Prescriptions: Vancomycin HCl 125 mg PO QID 5 Days #20 cap Diet: Regular Instruction Topics: Alcoholism Get Help, Addiction Recovery [place] W Relapse, Addiction Recovery Counseling, Addiction Tx Options, Addiction Get Help, Withdrawal Alcohol What Expect No Smoking: If you smoke, Please STOP! Call for help.
--- NOTE | 2024-02-01 14:21 | DISCHARGE SUMMARY ---
Discharge Summary Admit Date: 01/27/24 Discharge Date: 02/01/24 Discharging Provider: Mary Jo Baca Code Status: Attempt Resuscitation Condition at Discharge: Good Discharge Disposition: 01 Home, Self Care - HPI History of Present Illness: Patient is a 58-year-old female with a past medical history of alcohol abuse with previous withdrawals requiring inpatient care however no seizures who presented to the ED due to complaints of epigastric pain and nausea. Upon presentation patient had mildly elevated lipase. A CT abdomen/pelvis was performed which did not show any evidence of pancreatitis. She began withdrawing in the ED and was given Ativan and phenobarbital. During my evaluation patient was quite lethargic. Much of the history was obtained from the nursing staff. She had an alcohol level of 183 with an anion gap metabolic acidosis. Patient was admitted to the ICU for further management. - HOSPITAL COURSE Hospital Course: Patient is a 58-year-old female who presented to the ED due to alcohol abuse and concern for withdrawal. She also had associated epigastric pain and nausea. Patient was admitted to the ICU due to concern for potentially intense withdrawal however her withdrawal symptoms were well-controlled by oral Librium. During her hospital course she was diagnosed with C. difficile and was started on oral vancomycin. Her symptoms of diarrhea resolved quite quickly. Patient was discharged home. She does have a difficult social situation and was provided resources and counseled extensively on alcohol cessation and treatment. She was discharged on 5 additional days of oral vancomycin to complete a total of 10 days of treatment. - ALLERGIES Allergies/Adverse Reactions: Allergies Allergy/AdvReac Type Severity Reaction Status Date / Time No Known Drug Allergies Allergy Verified 01/27/24 06:43 - MEDICATIONS Home Medications: Ambulatory Orders Medication Instructions Recorded Confirmed Famotidine [Pepcid] 20 mg PO BID 01/27/24 01/27/24 Sertraline HCl 150 mg PO DAILY 01/27/24 01/27/24 Vancomycin HCl 125 mg PO QID 5 Days #20 cap 02/01/24 - PHYSICAL EXAM AT DISCHARGE General Appearance: positive: No acute distress, Alert Cardiovascular: positive: Regular rate & rhythm, No murmur, No gallop Abdomen: positive: Non-tender, No organomegaly, Nml bowel sounds, No distention - LABS Result Diagrams: 02/01/24 08:56 02/01/24 08:56 - FOLLOW UP Follow Up: Follow up with PCP in 3-5 days. - TIME SPENT Time Spent in Discharge (Minutes): 30
[2024-02-01 14:28] VITALS: BP 115/76; O2SAT 100
== END 2024-02-01 14:30 | disposition home or self-care (01) | DRG 897 ==
LOC: EDUNIT# → ED 06:28 → ICU 08:58
PROVIDERS: ADMIT Family Medicine; ATTEND Family Medicine
DX: F10.139 Alcohol abuse with withdrawal, unspecified (principal); A04.72 Enterocolitis due to Clostridium difficile, not specified as recurrent; E87.29 Other acidosis; Y90.6 Blood alcohol level of 120-199 mg/100 ml; H91.90 Unspecified hearing loss, unspecified ear; E83.42 Hypomagnesemia; F17.219 Nicotine dependence, cigarettes, with unspecified nicotine-induced disorders; Z79.899 Other long term (current) drug therapy; Z87.19 Personal history of other diseases of the digestive system
CPT/HCPCS: 36415; 74177; 80048; 80053; 80076; 81001; 82009; 82077; 82330; 82803; 83605; 83690; 83735; 84100; 84132; 85025; 87150; 87493; 87633; 96365; 96375; 97116; 97162; 97530; 99285; A9270; J1170; J1650; J2060; J2560; J2765; J3411; J7040; J7120; J8499; Q9967; 81003; 87086